=== PATIENT | female | born 1995 | race Caucasian/White ===

== ENCOUNTER 2019-07-17 11:35 | Emergency (ER) | payer SELFPAY ==
[2019-07-17 11:43] VITALS: BP 131/75; PULSE 97; RESP 18; TEMP 36.6; O2SAT 100; BMI 37.6
--- NOTE | 2019-07-17 11:56 | W.ED.NAVMDI ---
HPI - Nausea/Vomiting/Diarrhea General: Chief complaint: Headache Stated complaint: N/V X2DAYS H/A Time Seen by Provider: 07/17/19 11:47 Source: patient Mode of arrival: ambulatory Limitations: no limitations History of Present Illness: HPI Narrative: Patient is a 24-year-old female who presents to ED today with complaints of nausea, vomiting, diarrhea, and abdominal pain over the past 48 hours. Patient states she has had approximately 20 total non-bloody episodes of vomiting and reports just a few diarrhea stools. 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 Patient reports running fevers as high as 102. She reports abdominal pain seems to worsen before she has a bowel movement or before vomiting and seems to improve afterwards. Patient states the vomiting has now caused her to have a migraine headache. She has a chronic history of migraine headaches and feels this headache is identical to previous ones. MD elicited complaint: nausea, vomiting, diarrhea, abdominal pain and other (headache) Onset (ago): day(s) Description of vomiting: watery Associated nausea: Yes Associated abdominal pain: Yes Location of pain: Diffuse Pain consistency: intermittent Quality: cramping Exacerbating factors: eating Relieving factors: none Context: sick contacts Associated symtoms: Reports headache(s) and nausea; Denies change in vision, chest pain, dizziness, dysuria, fatigue, malaise, palpitations or syncope Review of Systems Const: Reports: fever and change in appetite; Denies: chills, body aches, change in weight, fatigue or malaise Eyes: Denies: change in vision or blurry vision ENMT: Denies: throat pain, enlarged tonsils, painful swallowing, nasal discharge, nasal congestion or facial/sinus pain Card: Denies: chest pain, palpitations, irregular heart rhythm, lightheadedness, syncope or shortness of breath on exertion Resp: Denies: shortness of breath, productive cough or pain on inspiration GI: Reports: abdominal pain, nausea, vomiting, diarrhea and cramping; Denies: vomiting blood, coffee grounds in vomit, heartburn/indigestion, painful bowel movements, change in stool character, blood in stool, black tarry stool, white/light colored stool or fatty stool : Denies: flank pain, difficulty urinating, painful urination, urinary frequency, urinary urgency or urinary hesitancy Musc: Denies: neck pain, back pain or joint pain Skin/Breast: Denies: rash Neuro: Reports: headache; Denies: numbness in extremities, weakness in extremities, changes in sensation, lack of coordination, difficulty walking, frequent falls, dizziness, vertigo, confusion, slurred speech or seizure-like activity PFS ED PFSH: Social History Smoking and tobacco status: current every day smoker Female Reproductive History: Date of last menstrual period: 07/09/19 Physical Exam Const: COMMON NORMALS: no apparent distress, oriented x3, no limitations, alert and well nourished NUTRITIONAL APPEARANCE: obese HENMT: COMMON NORMALS: normocephalic, head/scalp atraumatic, hearing grossly normal bilaterally, external ears normal, EAC's normal, TM's normal bilaterally, external nose normal, nasal mucous membranes and turbinates normal, moist oral mucous membranes and oropharynx normal HEAD & SCALP: normocephalic and atraumatic NOSE: external nose normal and nasal mucous membranes and turbinates normal EXTERNAL EAR: Yes external ears normal EXTERNAL AUDITORY CANAL: EAC's normal TYMPANIC MEMBRANE: TM's normal bilaterally Eye: COMMON NORMALS: PERRL and EOMs intact bilaterally PUPIL: Yes PERRL Neck/C-Spine: COMMON NORMALS: full ROM, no lymphadenopathy, supple and no meningeal signs Chest: COMMONS NORMALS: inspection of chest normal Resp: COMMON NORMALS: normal respiratory effort and clear to auscultation bilaterally AUSCULTATION: clear to auscultation bilaterally Cardio: COMMON NORMALS: regular rate and regular rhythm RATE: regular rate RHYTHM: regular rhythm GI: COMMON NORMALS: normal to inspection, nondistended, normoactive bowel sounds, soft to palpation, no hepatosplenomegaly and no masses PALPATION: Yes soft, Yes tender (very minor; diffuse) and Yes no hepatosplenomegaly : COMMON NORMALS: Yes no CVA tenderness BLADDER/KIDNEY EXAM: Yes no CVA tenderness Back/Pelvis: COMMON NORMALS: no CVA tenderness and thoracic and lumbar spine normal to inspection Extremity: COMMON NORMALS: normal to inspection Neuro: COMMON NORMALS: oriented x3 SENSORIUM/ORIENTATION: Yes alert MENINGEAL SIGNS: Yes no meningeal signs Skin: COMMON NORMALS: no rashes or lesions noted GENERAL SKIN EXAM: no rashes or lesions noted Course Vital Signs: Vital signs: Vital Signs Temperature 98 F 07/17/19 11:43 Pulse Rate 78 07/17/19 14:46 Respiratory Rate 16 07/17/19 14:46 Blood Pressure 131/93 07/17/19 14:46 Pulse Oximetry 97 07/17/19 14:46 MDM - Nausea/Vomiting/Diarrhea MDM Narrative: Medical decision making narrative: Labs are non-concerning at this time. Vitals are stable. She has not had any episodes of vomiting throughout her stay. Reports migraine headache is vastly improved. She feels comfortable going home at this time. Lab Data: Labs: Lab Results 07/17/19 07/17/19 07/17/19 Range/Units 11:50 11:54 11:54 WBC 7.1 (4.0-10.0) 10^3/ uL RBC 4.68 (4.1-5.3) 10^6/u L Hgb 13.4 (11.5-15.3) g/dL Hct 40.8 (37.0-47.0) % MCV 87.2 (81-99) fL MCH 28.6 (28.0-34.0) pg MCHC 32.8 (30.0-36.0) g/dL RDW 12.0 L (12.1-15.1) % Plt Count 306 (130-400) 10^3/c mm MPV 9.0 (7.4-10.4) fL Neut % (Auto) 75.6 % Lymph % (Auto) 14.1 % [place] % (Auto) 9.8 % Eos % (Auto) 0.1 % Baso % (Auto) 0.1 % Neut # (Auto) 5.4 (1.8-7.7) 10^3/u L Lymph # (Auto) 1.0 (0.8-4.8) 10^3/u L [place] # (Auto) 0.7 (0.2-0.9) 10^3/u L Eos # (Auto) 0.0 (0.0-0.8) 10^3/u L Baso # (Auto) 0.0 (0.0-0.1) 10^3/u L Nucleated RBC % (a uto) 0 % Nucleated RBCs # 0.0 /100WBC Sodium 136 (136-145) mmol/L Potassium 3.8 (3.5-5.1) mmol/L Chloride 100 (98-107) mmol/L Carbon Dioxide 25 (22-29) mmol/L Anion Gap 14.8 (5-19) BUN 10 (6-20) mg/dL Creatinine 0.8 (0.5-0.9) mg/dL GFR Calculation 86.7 L (90-130) mL/min Glucose 134 H (65-115) mg/dL Calcium 8.6 (8.5-10.5) mg/dL Total Bilirubin 0.3 (0.15-1.2) mg/dL AST 20 (0-32) U/L ALT 21 (0-33) U/L Alkaline Phosphata se 70 (35-105) IU/L Total Protein 7.5 (6.6-8.7) g/dL Albumin 4.4 (3.5-5.2) g/dL Globulin 3.1 (1.3-4.6) g/dL Lipase 6 L (13-60) U/L HCG, Qual (Negative) Urine Color (Yellow) Urine Appearance (CLEAR) Urine pH (5-7) Ur Specific Gravit y (1.005-1.030) Urine Protein (Negative) Urine Glucose (UA) (Normal) Urine Ketones (Negative) Urine Occult Blood (Negative) Urine Nitrate (Negative) Urine Bilirubin (NEGATIVE) Urine Urobilinogen (Negative) mg/dL Ur Leukocyte Debbie ase (Negative) Urine RBC (0-2) /hpf Urine WBC (0-5) /hpf Ur Squamous Epith Cells (0-5) Urine Bacteria (NONE) Urine Mucus Influenza Type A A g Negative (Negative) POC Influenza B Ag Negative (Negative) 07/17/19 07/17/19 Range/Units 11:54 13:08 WBC (4.0-10.0) 10^3/ uL RBC (4.1-5.3) 10^6/u L Hgb (11.5-15.3) g/dL Hct (37.0-47.0) % MCV (81-99) fL MCH (28.0-34.0) pg MCHC (30.0-36.0) g/dL RDW (12.1-15.1) % Plt Count (130-400) 10^3/c mm MPV (7.4-10.4) fL Neut % (Auto) % Lymph % (Auto) % [place] % (Auto) % Eos % (Auto) % Baso % (Auto) % Neut # (Auto) (1.8-7.7) 10^3/u L Lymph # (Auto) (0.8-4.8) 10^3/u L [place] # (Auto) (0.2-0.9) 10^3/u L Eos # (Auto) (0.0-0.8) 10^3/u L Baso # (Auto) (0.0-0.1) 10^3/u L Nucleated RBC % (a uto) % Nucleated RBCs # /100WBC Sodium (136-145) mmol/L Potassium (3.5-5.1) mmol/L Chloride (98-107) mmol/L Carbon Dioxide (22-29) mmol/L Anion Gap (5-19) BUN (6-20) mg/dL Creatinine (0.5-0.9) mg/dL GFR Calculation (90-130) mL/min Glucose (65-115) mg/dL Calcium (8.5-10.5) mg/dL Total Bilirubin (0.15-1.2) mg/dL AST (0-32) U/L ALT (0-33) U/L Alkaline Phosphata se (35-105) IU/L Total Protein (6.6-8.7) g/dL Albumin (3.5-5.2) g/dL Globulin (1.3-4.6) g/dL Lipase (13-60) U/L HCG, Qual Negative (Negative) Urine Color Yellow (Yellow) Urine Appearance Clear (CLEAR) Urine pH 6.5 (5-7) Ur Specific Gravit y 1.020 (1.005-1.030) Urine Protein Trace (Negative) Urine Glucose (UA) Norm (Normal) Urine Ketones 1+ H (Negative) Urine Occult Blood Trace H (Negative) Urine Nitrate Negative (Negative) Urine Bilirubin 1+ H (NEGATIVE) Urine Urobilinogen 4 H (Negative) mg/dL Ur Leukocyte Debbie ase Negative (Negative) Urine RBC 0-4 H (0-2) /hpf Urine WBC None (0-5) /hpf Ur Squamous Epith Cells 15-25 H (0-5) Urine Bacteria Trace (NONE) Urine Mucus 3+ Influenza Type A A g (Negative) POC Influenza B Ag (Negative) Discharge Plan Discharge Patient Disposition: Home, Self-Care Clinical Impression: Gastroenteritis Migraine Qualifiers: Migraine type: without aura Status migrainosus presence: without status migrainosus Intractability: not intractable Qualified Code(s): G43.009 - Migraine without aura, not intractable, without status migrainosus Condition: Stable Prescriptions: New Zofran 4 mg tablet 4 mg PO Q6H PRN (Reason: nausea and vomiting) Qty: 14 RF: 0 Discharge Orders: Discharge Order (Routine); Ordered 07/17/19 Ordered By: Paulette Moreno Referrals: ABRAM MCCARTHY, [Primary Care Provider] - Discharge Diet: Advance as tolerated Discharge Activity: Increase activity as tolerated Discharge Date/Time: 07/17/19 14:46 Coding Level of Care 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
[2019-07-17 12:00] LABS: Basophils % 0.1 %; Eosinophils % 0.1 %; Hematocrit 40.8 % (37.0-47.0); Hemoglobin 13.4 g/dL (11.5-15.3); Lymphocytes % 14.1 %; Mean Corpuscular HGB Conc 32.8 g/dL (30.0-36.0); Mean Corpuscular Hemoglobin 28.6 pg (28.0-34.0); Mean Corpuscular Volume 87.2 fL (81-99); Monocytes # 0.7 10^3/uL (0.2-0.9); Monocytes % 9.8 %; Neutrophils # 5.4 10^3/uL (1.8-7.7); Neutrophils % 75.6 %; Nucleated Red Blood Cells % 0 %; Platelet Count 306 10^3/cmm (130-400); Red Blood Count 4.68 10^6/uL (4.1-5.3); White Blood Count 7.1 10^3/uL (4.0-10.0)
[2019-07-17 12:17] LABS: Influenza A by IFA Negative (Negative); Influenza B by IFA Negative (Negative)
[2019-07-17 12:22] LABS: HCG, Serum Qual Negative (Negative)
[2019-07-17] MEDS: sodium chloride 0.9% 1,000 ML 999 ML IV (12:22)
[2019-07-17] MEDS: ondansetron 2 mg/ML SDV 2 mL 4 MG IVP (12:24)
[2019-07-17] MEDS: diphenhydrAMINE 50 mg/mL SDV 1mL IVP (12:25)
[2019-07-17] MEDS: ketorolac 60 mg/2 mL INJ 30 MG IVP (12:27)
[2019-07-17 12:28] LABS: Alanine Aminotransferase 21 U/L (0-33); Albumin Level 4.4 g/dL (3.5-5.2); Alkaline Phosphatase 70 IU/L (35-105); Anion Gap 14.8 (5-19); Aspartate Amino Transferase 20 U/L (0-32); Blood Urea Nitrogen 10 mg/dL (6-20); Calcium 8.6 mg/dL (8.5-10.5); Carbon Dioxide 25 mmol/L (22-29); Chloride 100 mmol/L (98-107); Globulin 3.1 g/dL (1.3-4.6); Glomerular Filtration Rate 86.7 mL/min (90-130); Glucose 134 mg/dL (65-115); Lipase 6 U/L (13-60); Potassium 3.8 mmol/L (3.5-5.1); Sodium 136 mmol/L (136-145); Total Bilirubin 0.3 mg/dL (0.15-1.2); Total Protein 7.5 g/dL (6.6-8.7)
[2019-07-17] MEDS: dexamethasone 10 mg/mL INJ 6 MG IV (12:30)
[2019-07-17] MEDS: metoclopramide 5 mg/mL SDV 2 mL 10 MG IVP (12:46)
[2019-07-17] MEDS: valproic acid inj 500 MG in sodium chloride 0.9% 50 ML 55 MG IV (13:42)
[2019-07-17 13:46] LABS: Bilirubin Urine 1+ (NEGATIVE); Blood Urine Trace (Negative); Glucose Urine UA Norm (Normal); Ketones Urine 1+ (Negative); Leukocyte Esterase Urine Negative (Negative); Nitrate Urine Negative (Negative); Protein Urine Trace (Negative); Urine Appearance Clear (CLEAR); Urine Color Yellow (Yellow); Urobilinogen Urine 4 mg/dL (Negative); pH Urine 6.5 (5-7)
[2019-07-17 13:47] LABS: Add Urine Microscopic? YES
[2019-07-17 14:03] LABS: Add Urine Culture? No; Bacteria Urine TRACE; Mucus Urine 3+; RBC Urine 0-4 /hpf (0-2); Squamous Epithelial Cell Urine 15-25 (0-5)
[2019-07-17 14:46] VITALS: BP 131/93; PULSE 78; RESP 16; O2SAT 97
== END 2019-07-17 14:46 | disposition home or self-care (01) ==
PROVIDERS: Emergency Provider Physician Assistant; Family Provider Internal Medicine; PCP Internal Medicine
DX: K52.9 Noninfective gastroenteritis and colitis, unspecified (principal); G43.909 Migraine, unspecified, not intractable, without status migrainosus; F17.200 Nicotine dependence, unspecified, uncomplicated
CPT/HCPCS: 80053; 81001; 83690; 84703; 85025; 87804; 96365; 96375; 99283; J1100; J1200; J1885; J2405; J2765; J7030

== ENCOUNTER 2019-09-28 08:34 | Emergency (ER) | payer SELFPAY ==
[2019-09-28 08:39] VITALS: BP 147/85; PULSE 95; RESP 16; TEMP 36.4; O2SAT 99; BMI 38.8
--- NOTE | 2019-09-28 08:48 | W.ED.HA ---
HPI - Headache General: Chief Complaint: Headache Stated Complaint: H/A Time Seen by Provider: 09/28/19 08:39 Source: patient Mode of arrival: ambulatory Limitations: no limitations History of Present Illness: HPI Narrative: Patient is a 24-year-old female who presents to ED today with complaints of a migraine headache over the past 3 days. Patient has an extensive history of migraines and states her pain today feels identical to previous migraine headaches. She is managed by a neurologist in [place]. She is having some blurry vision as well as nausea vomiting which is normal along with her migraine headaches. MD elicited complaint: headache and migraine Onset (ago): day(s) Onset description: gradually Severity: severe Pain scale (0-10): 10 Exacerbating factors: light and noise Relieving factors: nothing Context: occurred at rest Associated symptoms: Reports nausea, photophobia, sound sensitivity and vomiting; Deny chest pain, confusion, fever(s) or rash Review of Systems Const: Denies: fever, chills or body aches Eyes: Reports: blurry vision and photophobia; Denies: blind spots, floaters or seeing flashes ENMT: Denies: throat pain, enlarged tonsils or painful swallowing Card: Denies: chest pain Resp: Denies: shortness of breath GI: Reports: nausea and vomiting; Denies: abdominal pain or diarrhea Musc: Denies: neck pain or back pain Skin/Breast: Denies: rash Neuro: Reports: headache; Denies: numbness in extremities, weakness in extremities, changes in sensation, lack of coordination, difficulty walking, frequent falls, dizziness, confusion or slurred speech PFS ED PFSH: Social History Smoking and tobacco status: current every day smoker Female Reproductive History: Date of last menstrual period: 07/09/19 Physical Exam Const: COMMON NORMALS: oriented x3, no limitations and alert GENERAL APPEARANCE: in distress (ARNETT pain) NUTRITIONAL APPEARANCE: overweight ORIENTATION/CONSCIOUSNESS: Yes oriented to person, Yes oriented to place and Yes oriented to time HENMT: COMMON NORMALS: normocephalic, head/scalp atraumatic, hearing grossly normal bilaterally, external ears normal, EAC's normal, TM's normal bilaterally, external nose normal, nasal mucous membranes and turbinates normal, moist oral mucous membranes and oropharynx normal HEAD & SCALP: normal to inspection, normocephalic and atraumatic FACE & SINUS: normal facial exam and sinuses nontender NOSE: external nose normal and nasal mucous membranes and turbinates normal EXTERNAL EAR: Yes external ears normal EXTERNAL AUDITORY CANAL: EAC's normal TYMPANIC MEMBRANE: TM's normal bilaterally Eye: COMMON NORMALS: PERRL, EOMs intact bilaterally and conjunctivae normal CONJUNCTIVA: Yes conjunctivae normal PUPIL: Yes PERRL DIRECT OPHTHALMOSCOPY: Yes photophobia Neck/C-Spine: COMMON NORMALS: full ROM, no lymphadenopathy and no meningeal signs Neuro: KARLA COMA SCALE: document GCS findings Karla coma scale eye opening: Spontaneous [place] coma scale verbal response: Orientated Karla coma scale motor response: Obey commands Karla coma scale total score: 15 COMMON NORMALS: oriented x3, CN's II-XII intact bilaterally, moves all extremities, no focal motor deficits, no sensory deficits noted and gait normal SENSORIUM/ORIENTATION: Yes alert, Yes oriented to person, Yes oriented to place and Yes oriented to time MENINGEAL SIGNS: Yes no meningeal signs Skin: COMMON NORMALS: no rashes or lesions noted GENERAL SKIN EXAM: no rashes or lesions noted Course Reevaluation(s): Reevaluation #1: ARNETT trending downward; she states her ex- just let her know he would be dropping their child off at the house and she needs to leave to be there so requesting DC paperwork Vital Signs: Vital signs: Vital Signs Temperature 97.5 F L 09/28/19 08:39 Pulse Rate 95 09/28/19 08:39 Respiratory Rate 16 09/28/19 08:39 Blood Pressure 147/85 09/28/19 08:39 Pulse Oximetry 99 09/28/19 08:39 Discharge Plan Discharge Patient Disposition: Home, Self-Care Clinical Impression: Migraine Qualifiers: Migraine type: without aura Status migrainosus presence: with status migrainosus Intractability: not intractable Qualified Code(s): G43.001 - Migraine without aura, not intractable, with status migrainosus Condition: Stable Prescriptions: No Action venlafaxine 150 mg capsule,extended release 24hr 150 mg PO DAILY RF: 0 hydroxyzine HCl 50 mg tablet 100 mg PO BEDTIME RF: 0 Tylenol Extra Strength 500 mg Tablet 1,000 mg PO PRN RF: 0 trazodone 100 mg tablet 100 mg PO BEDTIME PRN (Reason: Sleep) RF: 0 baclofen 10 mg tablet 10 mg PO TID PRN (Reason: Muscle Spasm) RF: 0 ibuprofen 200 mg Tablet 800 mg PO PRN RF: 0 metoclopramide HCl 10 mg tablet 10 mg PO DAILY PRN (Reason: headache nausea) RF: 0 magnesium oxide 400 mg magnesium Capsule 400 mg PO DAILY RF: 0 Discharge Orders: Discharge Order (Routine); Ordered 09/28/19 Ordered By: Paulette Moreno Referrals: ABRAM MCCARTHY DO [Primary Care Provider] - Discharge Diet: Usual diet Discharge Activity: Increase activity as tolerated Patient Instructions: Headache - Migraine (Adult), Migraine Headache (ED) Coding Level of Care Code 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
[2019-09-28] MEDS: dexamethasone 10 mg/mL INJ 6 MG IVP (08:57)
[2019-09-28] MEDS: diphenhydrAMINE 50 mg/mL SDV 1mL IVP (08:58)
[2019-09-28] MEDS: ketorolac 60 mg/2 mL INJ 30 MG IVP (08:58)
[2019-09-28] MEDS: ondansetron 2 mg/ML SDV 2 mL 4 MG IVP (08:58)
[2019-09-28] MEDS: sodium chloride 0.9% 1,000 ML 999 ML IV (08:59)
[2019-09-28] MEDS: metoclopramide 5 mg/mL SDV 2 mL 10 MG IVP (10:26)
[2019-09-28] MEDS: valproic acid inj 500 MG in sodium chloride 0.9% 50 ML 55 MG IV (10:26)
[2019-09-28 10:28] VITALS: BP 142/60; PULSE 94; RESP 18; O2SAT 97
== END 2019-09-28 10:33 | disposition home or self-care (01) ==
PROVIDERS: Emergency Provider Physician Assistant; Family Provider Internal Medicine; PCP Internal Medicine
DX: G43.001 Migraine without aura, not intractable, with status migrainosus (principal); F17.210 Nicotine dependence, cigarettes, uncomplicated
CPT/HCPCS: 12345; 96360; 96365; 96375; 99282; 99283; J1100; J1200; J1885; J2405; J2765; J7030

== ENCOUNTER 2019-10-14 17:45 | Inpatient (IN) | payer SELFPAY ==
[2019-10-14] VITALS (7 sets, daily range): BP systolic 114–138; BP diastolic 82–89; PULSE 105–118; RESP 16–20; TEMP 36.4–36.7; O2SAT 96–100; BMI 37.6
--- NOTE | 2019-10-14 18:24 | US_ITS ---
WS: [id number] TRANSABDOMINAL PELVIC ULTRASOUND HISTORY: Pain COMPARISON: None available. Uterus: 6.5 cm x 4.0 cm x 4.6 cm. Very limited evaluation of the uterus. Endometrium: Not visualized. Neither ovary is definitely visualized. No adnexal mass is appreciated. No free fluid in the cul-de-sac. US/US pelvic complete* [id number] IMPRESSION: Extremely limited evaluation of the uterus and adnexal structures. No abnormali ty identified but neither ovary is well seen.
--- NOTE | 2019-10-14 18:26 | W.ED.FEMALGU ---
HPI - Female Genitourinary General: Chief complaint: Urogenital-Female Stated complaint: SEVERE PAIN IN ABDOMEN LOWER LEFT QUADRANT Time Seen by Provider: 10/14/19 18:18 History of Present Illness: HPI Narrative: Rebecca is a nice 24-year-old female who comes in complaining of left-sided pelvic/abdominal pain. She denies any vaginal discharge or bleeding. Patient states that she thinks that she has ruptured her bladder. She normally self caths every evening and as needed when she feels as though she needs to remove urine. She does this to prevent recurrent urinary tract infections as she has interstitial cystitis. Patient also states she has polycystic ovarian syndrome. She denies any fevers, chills, nausea/vomiting, diarrhea or constipation. Patient states she is not had pain like this before. Patient states she is also not had a period in approximately 9 months and she is not using control. She does not believe that she is . She is unaware of anything that makes her symptoms better or worse and she is not tried anything at home for this. Associated symptoms: Reports abdominal pain; Deny headache(s), nausea or syncope Date of Last Menstrual Period: 07/09/19 Review of Systems General: Reports: other (negative unless marked) Const: Denies: fever, chills, body aches, fatigue, malaise or diaphoresis Eyes: Denies: change in vision or blurry vision ENMT: Denies: throat pain, painful swallowing, hoarseness, ear pain, ear discharge, Change in hearing or nasal discharge Card: Denies: chest pain, palpitations, irregular heart rhythm, syncope, pre-syncope, shortness of breath on exertion or shortness of breath when lying down Resp: Denies: shortness of breath, productive cough, non-productive cough, wheezing, coughing up blood or chest congestion GI: Reports: abdominal pain; Denies: nausea, vomiting, vomiting blood, coffee grounds in vomit, diarrhea, constipation, cramping, blood in stool or black tarry stool : Reports: pelvic pain; Denies: flank pain, painful urination, urinary frequency, urinary urgency, decreased urine ouput, urinary incontinence or blood in urine Musc: Denies: neck pain, back pain, extremity pain, extremity swelling, joint pain, joint swelling, joint warmth or joint stiffness Skin/Breast: Denies: rash, skin tenderness or yellow skin Neuro: Denies: headache, numbness in extremities, weakness in extremities, changes in sensation, lack of coordination, difficulty walking, dizziness, vertigo or confusion Endo: Denies: excessive thirst, tired all the time, cold intolerance, excessive sweating, flushing or hot flashes Jimmy/Lymph: Denies: easy bruising, easy bleeding, petechiae or enlarged lymph nodes All/Imm: Denies: hives, throat swelling, tongue swelling, facial swelling or acute wheezing PFSH ED PFSH: Medical History Interstitial cystitis Migraine headache PCOS (polycystic ovarian syndrome) Social History Smoking and tobacco status: current every day smoker Female Reproductive History: Date of last menstrual period: 07/09/19 Physical Exam Const: COMMON NORMALS: no apparent distress, oriented x3, no limitations, healthy appearing and well nourished EXAM LIMITATIONS: no altered mental status GENERAL APPEARANCE: cooperative, well kempt and well developed ORIENTATION/CONSCIOUSNESS: Yes awake HENMT: COMMON NORMALS: normocephalic, head/scalp atraumatic, hearing grossly normal bilaterally, external ears normal, EAC's normal, external nose normal and moist oral mucous membranes HEAD & SCALP: normal to inspection, normocephalic and atraumatic FACE & SINUS: normal facial exam and face symmetric NOSE: external nose normal and nares normal EXTERNAL EAR: Yes external ears normal EXTERNAL AUDITORY CANAL: EAC's normal MOUTH: oral and palatal mucosa normal and tongue normal Eye: COMMON NORMALS: PERRL, EOMs intact bilaterally, conjunctivae normal and no scleral icterus GENERAL EYE: normal appearance of both eyes and normal light reflex CONJUNCTIVA: Yes conjunctivae normal SCLERA: sclerae normal CORNEA: Yes corneas normal PUPIL: Yes PERRL DIRECT OPHTHALMOSCOPY: Yes normal light reflex Neck/C-Spine: COMMON NORMALS: full ROM, no lymphadenopathy, supple, no meningeal signs and no JVD GENERAL: Yes normal visual inspection and Yes trachea midline CERVICAL SPINE: Yes cervical ROM normal Chest: COMMONS NORMALS: inspection of chest normal and palpation of chest normal Resp: COMMON NORMALS: normal respiratory effort, no retractions, no use of accessory muscles and clear to auscultation bilaterally EFFORT & INSPECTION: Yes able to speak in complete sentences AUSCULTATION: clear to auscultation bilaterally Cardio: COMMON NORMALS: no JVD, regular rate, regular rhythm, S1 normal heart sound, S2 normal heart sound, no gallops, no clicks, no murmurs and no rub JUGULAR VENOUS DISTENTION: no JVD RATE: regular rate RHYTHM: regular rhythm HEART SOUNDS: S1 normal and S2 normal GI: COMMON NORMALS: soft to palpation, no hepatosplenomegaly and no masses PALPATION: Yes soft, Yes tender Details: LLQ (Mild to moderate but without rebound or guarding), No guarding, No rigid and Yes no hepatosplenomegaly : COMMON NORMALS: Yes no CVA tenderness BLADDER/KIDNEY EXAM: Yes no CVA tenderness Back/Pelvis: COMMON NORMALS: no CVA tenderness, thoracic and lumbar spine normal to inspection, no thoracic nor lumbar tenderness and thoraco-lumbar ROM normal Extremity: COMMON NORMALS: normal to inspection, full ROM, normal capillary refill, no joint enlargement, no clubbing, cyanosis or edema and no calf tenderness Neuro: COMMON NORMALS: oriented x3, CN's II-XII intact bilaterally, moves all extremities, no focal motor deficits and no sensory deficits noted MENINGEAL SIGNS: Yes no meningeal signs Psych: COMMON NORMALS: mental status grossly normal, thought process normal, cooperative, affect normal, speech normal and activity/motor behavior normal APPEARANCE: Yes well kempt SPEECH: Yes normal speech THOUGHT PROCESS: normal thought process Skin: COMMON NORMALS: no rashes or lesions noted, skin turgor normal, no jaundice, no petechiae and no mottling GENERAL SKIN EXAM: no rashes or lesions noted and turgor normal Course ED course: 0 -Rebecca is had a French catheter placed and just a little over 100 cc of urine has been obtained. The patient states this is not relieved her pain. Vital Signs: Vital signs: Vital Signs Temperature 98.0 F 10/14/19 18:11 Pulse Rate 118 H 10/14/19 20:37 Respiratory Rate 20 H 10/14/19 20:37 Blood Pressure 114/82 10/14/19 20:37 Pulse Oximetry 98 10/14/19 20:37 MDM - Female MDM Narrative: Medical decision making narrative: Admission -patient has evidence of pyelonephritis on CT. She stated that she has had a kidney stone for 5 years that is never passed but there is no evidence of this just a UTI and probable pyelonephritis. The patient states she has been vomiting and is been subjectively febrile. She also states her pain is not controlled. I think at this time we should put her in the hospital as she cannot keep down her medicines at home she will not be able to get over this. I have reviewed the case with Dr. Diamond and he agrees to admission. Although the patient does meet sepsis criteria clinically she does not appear septic. Lab Data: Attestation: I reviewed the patient's lab results. Labs: Lab Results 10/14/19 10/14/19 10/14/19 Range/Units 18:32 18:32 18:45 WBC 12.7 H (4.0-10.0) 10^3/ uL RBC 5.30 (4.1-5.3) 10^6/u L Hgb 15.4 H (11.5-15.3) g/dL Hct 46.6 (37.0-47.0) % MCV 87.9 (81-99) fL MCH 29.1 (28.0-34.0) pg MCHC 33.0 (30.0-36.0) g/dL RDW 13.0 (12.1-15.1) % Plt Count 427 H (130-400) 10^3/c mm MPV 9.7 (7.4-10.4) fL Neut % (Auto) 72.6 % Lymph % (Auto) 17.9 % [place] % (Auto) 8.2 % Eos % (Auto) 0.7 % Baso % (Auto) 0.3 % Neut # (Auto) 9.2 H (1.8-7.7) 10^3/u L Lymph # (Auto) 2.3 (0.8-4.8) 10^3/u L [place] # (Auto) 1.0 H (0.2-0.9) 10^3/u L Eos # (Auto) 0.1 (0.0-0.8) 10^3/u L Baso # (Auto) 0.0 (0.0-0.1) 10^3/u L Nucleated RBC % (a uto) 0 % Nucleated RBCs # 0.0 /100WBC Sodium 137 (136-145) mmol/L Potassium 4.3 (3.5-5.1) mmol/L Chloride 103 (98-107) mmol/L Carbon Dioxide 20 L (22-29) mmol/L Anion Gap 18.3 (5-19) BUN 9 (6-20) mg/dL Creatinine 0.8 (0.5-0.9) mg/dL GFR Calculation 86.7 L (90-130) mL/min Glucose 100 (65-115) mg/dL Calculated Osmolal ity 280 L (285-295) mOsm/k g Calcium 9.2 (8.5-10.5) mg/dL Total Bilirubin 0.4 (0.15-1.2) mg/dL AST 21 (0-32) U/L ALT 17 (0-33) U/L Alkaline Phosphata se 79 (35-105) IU/L Total Protein 7.6 (6.6-8.7) g/dL Albumin 4.5 (3.5-5.2) g/dL Globulin 3.1 (1.3-4.6) g/dL Lipase 13 (13-60) U/L HCG, Qual Negative (Negative) Urine Color (Yellow) Urine Appearance (CLEAR) Urine pH (5-7) Ur Specific Gravit y (1.005-1.030) Urine Protein (Negative) Urine Glucose (UA) (Normal) Urine Ketones (Negative) Urine Blood (Negative) Urine Nitrate (Negative) Urine Bilirubin (NEGATIVE) Urine Urobilinogen (Negative) mg/dL Ur Leukocyte Debbie ase (Negative) Urine RBC (0-2) /hpf Urine WBC (0-5) /hpf Ur Squamous Epith Cells (0-5) Urine Bacteria (NONE) 10/14/19 Range/Units 18:45 WBC (4.0-10.0) 10^3/ uL RBC (4.1-5.3) 10^6/u L Hgb (11.5-15.3) g/dL Hct (37.0-47.0) % MCV (81-99) fL MCH (28.0-34.0) pg MCHC (30.0-36.0) g/dL RDW (12.1-15.1) % Plt Count (130-400) 10^3/c mm MPV (7.4-10.4) fL Neut % (Auto) % Lymph % (Auto) % [place] % (Auto) % Eos % (Auto) % Baso % (Auto) % Neut # (Auto) (1.8-7.7) 10^3/u L Lymph # (Auto) (0.8-4.8) 10^3/u L [place] # (Auto) (0.2-0.9) 10^3/u L Eos # (Auto) (0.0-0.8) 10^3/u L Baso # (Auto) (0.0-0.1) 10^3/u L Nucleated RBC % (a uto) % Nucleated RBCs # /100WBC Sodium (136-145) mmol/L Potassium (3.5-5.1) mmol/L Chloride (98-107) mmol/L Carbon Dioxide (22-29) mmol/L Anion Gap (5-19) BUN (6-20) mg/dL Creatinine (0.5-0.9) mg/dL GFR Calculation (90-130) mL/min Glucose (65-115) mg/dL Calculated Osmolal ity (285-295) mOsm/k g Calcium (8.5-10.5) mg/dL Total Bilirubin (0.15-1.2) mg/dL AST (0-32) U/L ALT (0-33) U/L Alkaline Phosphata se (35-105) IU/L Total Protein (6.6-8.7) g/dL Albumin (3.5-5.2) g/dL Globulin (1.3-4.6) g/dL Lipase (13-60) U/L HCG, Qual (Negative) Urine Color Yellow (Yellow) Urine Appearance Hazy A (CLEAR) Urine pH 6 (5-7) Ur Specific Gravit y 1.015 (1.005-1.030) Urine Protein 2+ H (Negative) Urine Glucose (UA) Norm (Normal) Urine Ketones Negative (Negative) Urine Blood 3+ H (Negative) Urine Nitrate Positive H (Negative) Urine Bilirubin Neg (NEGATIVE) Urine Urobilinogen Norm (Negative) mg/dL Ur Leukocyte Debbie ase 2+ H (Negative) Urine RBC 50-80 H (0-2) /hpf Urine WBC 25-40 H (0-5) /hpf Ur Squamous Epith Cells 0-4 H (0-5) Urine Bacteria 4+ H (NONE) Imaging Data: Pelvic Ultrasound: Radiologist's impression: Pelvic ultrasound, tech interpretation -no acute abnormalities. No evidence of ovarian cyst. No ovarian torsion. Uterus and tubes normal. No free fluid. CT Abd/Pel: Radiologist's impression: [facility] [address] [place] [address] CT Scan Report Signed Patient: Rebecca Aguilar Unit #: [id number] : 1995 Age/Sex: 24 / F ADM Date: 10/14/19 Loc: ER Room/Bed: Attending Dr: Ordering Provider/Ordering MD: Lolis Whitley DO Date of Service: 10/14/19 Procedure(s): CT kidney stone [id number] Accession Number(s): [id number] Report Number: [id number] PROCEDURE INFORMATION: Exam: CT Abdomen And Pelvis Without Contrast Exam date and time: 10/14/2019 7:39 PM Age: 24 years old Clinical indication: Abdominal pain; Localized; Left lower quadrant (llq); Prior surgery; Surgery type: Ileocecal resection; Patient HX: Severe llq and pelvic pain. History of menkers diverticulum. ; Additional info: Flank/abdominal pain TECHNIQUE: Imaging protocol: Computed tomography of the abdomen and pelvis without contrast. Radiation optimization: All CT scans at this facility use at least one of these dose optimization techniques: automated exposure control; mA and/or kV adjustment per patient size (includes targeted exams where dose is matched to clinical indication); or iterative reconstruction. COMPARISON: CT Abdomen/Pelvis Renal [id number] 04/27/2016 9:11 PM RADIATION DOSE METRICS: Total DLP: 1319.12 mGy-cm FINDINGS: Limitations: The absence of intravenous contrast lessens the sensitivity of this study for solid organ abnormalities. Liver: There is no focal abnormality within the liver. Gallbladder and bile ducts: The gallbladder is normal. Pancreas: The pancreas is normal. Spleen: The spleen is normal. Adrenals: The adrenal glands are normal. Kidneys and ureters: The kidneys are normal. There is no evidence of renal or ureteral calcifications. There is mild fullness of the left ureter and left collecting system a mild periureteric stranding on the left. This is similar to the findings on the right side on 04/27/2016 and could represent urinary tract infection. Correlation with clinical findings is suggested. Stomach and bowel: There are postsurgical changes of ileocolic resection. The appendix is not identified. There is no evidence of colitis/diverticulitis. Appendix: See Stomach and bowel finding. Intraperitoneal space: Unremarkable. No free air. No significant fluid collection. Vasculature: Unremarkable. No abdominal aortic aneurysm. Lymph nodes: Unremarkable. No enlarged lymph nodes. Bladder: Urinary bladder is drained by French catheter. There does appear to be thickening of the urinary bladder suggesting urinary tract infection. Correlation with clinical findings and urinalysis is suggested. Reproductive: Unremarkable as visualized. Bones/joints: Unremarkable. No acute fracture. Soft tissues: Unremarkable. CT/CT kidney stone [id number] IMPRESSION: Findings are worrisome for urinary tract infection which may also include left ureteritis or pyelonephritis. Correlation with clinical findings is suggested. Radiation Dose CTDIVOL = (mGy): DLP = 1319.12 (mGy-cm) Dictated By: Tyrone An Signed By: Tyrone An Signed Date/Time: 10/14/192024 DD/ 23 Discharge Plan Discharge Patient Disposition: Placed in Observation Clinical Impression: Pyelonephritis Condition: Stable Prescriptions: No Action hydroxyzine HCl 50 mg tablet 100 mg PO BEDTIME Qty: 60 RF: 3 venlafaxine 150 mg capsule,extended release 24hr 150 mg PO DAILY RF: 0 Tylenol Extra Strength 500 mg Tablet 1,000 mg PO PRN RF: 0 trazodone 100 mg tablet 100 mg PO BEDTIME PRN (Reason: Sleep) RF: 0 baclofen 10 mg tablet 10 mg PO TID PRN (Reason: Muscle Spasm) RF: 0 ibuprofen 200 mg Tablet 800 mg PO PRN RF: 0 metoclopramide HCl 10 mg tablet 10 mg PO DAILY PRN (Reason: headache nausea) RF: 0 magnesium oxide 400 mg magnesium Capsule 400 mg PO DAILY RF: 0 Referrals: ABRAM MCCARTHY DO [Primary Care Provider] - Coding Level of Care Code ED T[employer] Inspector for [facility] Fwd Exam Comprehensive
[2019-10-14] MEDS: sodium chloride 0.9% 1,000 ML 100 ML IV (18:35)
[2019-10-14] MEDS: ondansetron 2 mg/ML SDV 2 mL 4 MG IVP (18:36)
[2019-10-14] MEDS: HYDROmorphone 1 mg/mL INJ 1 mL 0.5 MG IVP ×3 (18:37→22:07)
[2019-10-14 18:57] LABS: Basophils % 0.3 %; Eosinophils # 0.1 10^3/uL (0.0-0.8); Eosinophils % 0.7 %; Hematocrit 46.6 % (37.0-47.0); Hemoglobin 15.4 g/dL (11.5-15.3); Lymphocytes # 2.3 10^3/uL (0.8-4.8); Lymphocytes % 17.9 %; Mean Corpuscular Hemoglobin 29.1 pg (28.0-34.0); Mean Corpuscular Volume 87.9 fL (81-99); Mean Platelet Volume 9.7 fL (7.4-10.4); Monocytes % 8.2 %; Neutrophils # 9.2 10^3/uL (1.8-7.7); Neutrophils % 72.6 %; Nucleated Red Blood Cells % 0 %; Platelet Count 427 10^3/cmm (130-400); White Blood Count 12.7 10^3/uL (4.0-10.0)
[2019-10-14 19:07] LABS: HCG Qualitative Urine. Negative (Negative)
[2019-10-14 19:17] LABS: Bilirubin Urine Neg (NEGATIVE); Blood Urine 3+ (Negative); Glucose Urine UA Norm (Normal); Ketones Urine Negative (Negative); Nitrate Urine Positive (Negative); Protein Urine 2+ (Negative); Specific Gravity, Urine 1.015 (1.005-1.030); Urine Appearance Hazy (CLEAR); Urine Color Yellow (Yellow); Urobilinogen Urine Norm (Negative); pH Urine 6 (5-7)
[2019-10-14 19:18] LABS: Add Urine Culture? Yes; Add Urine Microscopic? YES; Bacteria Urine 4+; Leukocyte Esterase Urine 2+ (Negative); RBC Urine 50-80 /hpf (0-2); Squamous Epithelial Cell Urine 0-4 (0-5); WBC Urine 25-40 /hpf (0-5)
[2019-10-14 19:29] LABS: Alanine Aminotransferase 17 U/L (0-33); Albumin Level 4.5 g/dL (3.5-5.2); Alkaline Phosphatase 79 IU/L (35-105); Anion Gap 18.3 (5-19); Aspartate Amino Transferase 21 U/L (0-32); Blood Urea Nitrogen 9 mg/dL (6-20); Calcium 9.2 mg/dL (8.5-10.5); Carbon Dioxide 20 mmol/L (22-29); Chloride 103 mmol/L (98-107); Globulin 3.1 g/dL (1.3-4.6); Glomerular Filtration Rate 86.7 mL/min (90-130); Glucose 100 mg/dL (65-115); Lipase 13 U/L (13-60); Osmolality Calculated 280 mOsm/kg (285-295); Potassium 4.3 mmol/L (3.5-5.1); Sodium 137 mmol/L (136-145); Total Bilirubin 0.4 mg/dL (0.15-1.2); Total Protein 7.6 g/dL (6.6-8.7)
--- NOTE | 2019-10-14 19:36 | CTR_ITS ---
PROCEDURE INFORMATION: Exam: CT Abdomen And Pelvis Without Contrast Exam date and time: 10/14/2019 7:39 PM Age: 24 years old Clinical indication: Abdominal pain; Localized; Left lower quadrant (llq); Prior surgery; Surgery type: Ileocecal resection; Patient HX: Severe llq and pelvic pain. History of menkers diverticulum. ; Additional info: Flank/abdominal pain TECHNIQUE: Imaging protocol: Computed tomography of the abdomen and pelvis without contrast. Radiation optimization: All CT scans at this facility use at least one of these dose optimization techniques: automated exposure control; mA and/or kV adjustment per patient size (includes targeted exams where dose is matched to clinical indication); or iterative reconstruction. COMPARISON: CT Abdomen/Pelvis Renal [id number] 04/27/2016 9:11 PM RADIATION DOSE METRICS: Total DLP: 1319.12 mGy-cm FINDINGS: Limitations: The absence of intravenous contrast lessens the sensitivity of this study for solid organ abnormalities. Liver: There is no focal abnormality within the liver. Gallbladder and bile ducts: The gallbladder is normal. Pancreas: The pancreas is normal. Spleen: The spleen is normal. Adrenals: The adrenal glands are normal. Kidneys and ureters: The kidneys are normal. There is no evidence of renal or ureteral calcifications. There is mild fullness of the left ureter and left collecting system a mild periureteric stranding on the left. This is similar to the findings on the right side on 04/27/2016 and could represent urinary tract infection. Correlation with clinical findings is suggested. Stomach and bowel: There are postsurgical changes of ileocolic resection. The appendix is not identified. There is no evidence of colitis/diverticulitis. Appendix: See Stomach and bowel finding. Intraperitoneal space: Unremarkable. No free air. No significant fluid collection. Vasculature: Unremarkable. No abdominal aortic aneurysm. Lymph nodes: Unremarkable. No enlarged lymph nodes. Bladder: Urinary bladder is drained by French catheter. There does appear to be thickening of the urinary bladder suggesting urinary tract infection. Correlation with clinical findings and urinalysis is suggested. Reproductive: Unremarkable as visualized. Bones/joints: Unremarkable. No acute fracture. Soft tissues: Unremarkable. CT/CT kidney stone [id number] IMPRESSION: Findings are worrisome for urinary tract infection which may also include left ureteritis or pyelonephritis. Correlation with clinical findings is suggested. Radiation Dose CTDIVOL = (mGy): DLP = 1319.12 (mGy-cm)
[2019-10-14] MEDS: cefTRIAXone 1,000 MG in sodium chloride 0.9% (plus) 50 ML 100 MG IV (20:29)
[2019-10-14 21:23] LABS: Lactic Sepsis W/Reflex 0.8 mmol/L (0.5-2.2)
--- NOTE | 2019-10-14 21:23 | PM.HP ---
Providers/Chief Complaint Primary Care Provider: ABRAM MCCARTHY DO Chief Complaint: SEVERE PAIN IN ABDOMEN LOWER LEFT QUADRANT History of Present Illness Rebecca Aguilar is a 24 year old female with past medical history of interstitial nephritis, migraine headaches, polycystic ovarian syndrome, prior episodes of UTI who presents with complaints of left flank pain since last night. The pain started gradually but quickly became very severe. The patient also reports chronic dysuria which has worsened recently. The urine is cloudy. In the emergency room the patient is found to have UTI. CT of the abdomen revealed findings consistent with pyelonephritis. The patient also meets criteria for sepsis. She has tachycardia, leukocytosis. She also reports chills at home. She also reports associated nausea and vomiting. No blood in the urine. She denies chest pain, shortness of breath, cough, palpitations, runny nose or sore throat, diarrhea. On review of systems she reports frequent migraine headaches and complete right-sided numbness including her face and extremities. Review of Systems General: Reports: 10 or more systems reviewed and unremarkable except in HPI and below Medications/Allergies Home Medications Medication Instructions Recorded Confirmed Last Taken Type acetaminophen [Tylenol Extra 1,000 mg PO PRN 09/28/19 09/28/19 09/28/19 05:00 History Strength] baclofen 10 mg PO TID PRN 09/28/19 09/28/19 09/28/19 History ibuprofen 800 mg PO PRN 09/28/19 09/28/19 09/28/19 05:00 History magnesium oxide 400 mg PO DAILY 09/28/19 09/28/19 09/28/19 History metoclopramide HCl 10 mg PO DAILY PRN 09/28/19 09/28/19 09/27/19 History trazodone 100 mg PO BEDTIME PRN 09/28/19 09/28/19 09/27/19 History venlafaxine 150 mg PO DAILY 09/28/19 09/28/19 09/28/19 05:00 History hydroxyzine HCl 50 mg tablet 100 mg PO BEDTIME #60 tab 10/06/19 Unknown Rx Allergies Allergy/AdvReac Type Severity Reaction Status Date / Time amitriptyline Allergy ADR-Agitate Verified 07/17/19 11:43 d medroxyprogesterone Allergy Unknown Verified 09/28/19 09:17 [From Provera] meperidine [From Demerol] Allergy ALGY-Rash Verified 07/17/19 11:43 morphine Allergy ADR/ALGY-Fl Verified 07/17/19 11:43 ushing prochlorperazine Allergy ADR-Irritab Verified 07/17/19 11:43 [From Compazine] le promethazine [From Phenergan] Allergy Unknown Verified 07/17/19 11:43 PFSH Acute PFSH: Medical History Interstitial cystitis Migraine headache PCOS (polycystic ovarian syndrome) Social History Smoking and tobacco status: current every day smoker Female Reproductive History: Date of last menstrual period: 07/09/19 Vitals/I&O/Wt Last Vital Signs Temp 98.0 F 10/14/19 18:11 Pulse 118 H 10/14/19 20:37 Resp 20 H 10/14/19 20:37 BP 114/82 10/14/19 20:37 Pulse Ox 98 10/14/19 20:37 Weight last 48 hrs Weight 81.647 kg Physical Exam Narrative: EXAM NARRATIVE: The patient is awake alert and oriented. Mild distress. Mood and affect are appropriate. Responses are adequate. Skin is warm and dry. Dry mucous membranes. Eyes PERRLA, extraocular was intact. No icterus Neck supple, no JVD Lungs clear bilaterally. No respiratory distress. Heart S1, S2, regular Abdomen soft, no guarding no rebound. Left CVA tenderness is present. Bowel sounds are present French catheter is inserted. Cloudy urine. Extremities no edema cyanosis or calf tenderness bilaterally No focal weakness on neuro evaluation. No facial asymmetry. Normal speech. Urinary Catheter Management^: French: Cath Placed During This Visit: yes Reason for Continuing Indwelling Catheter: Acute Urinary Retention or Obstruction Urinary Catheter Date of Insertion: 10/14/19 Urinary Catheter Time of Insertion: 18:45 Data : 10/14/19 18:32 10/14/19 18:32 Other Labs: Laboratory Results WBC 12.7 10^3/uL (4.0-10.0) H 10/14/19 18:32 RBC 5.30 10^6/uL (4.1-5.3) 10/14/19 18:32 Hgb 15.4 g/dL (11.5-15.3) H 10/14/19 18: Hct 46.6 % (37.0-47.0) 10/14/19: MCV 87.9 fL (81-99) 10/14/19 18: MCH 29.1 pg (28.0-34.0) 10/14/19 18: MCHC 33.0 g/dL (30.0-36.0) 10/14/19: RDW 13.0 % (12.1-15.1) 10/14/19 18: Plt Count 427 10^3/cmm (130-400) H 10/14/19 18: MPV 9.7 fL (7.4-10.4) 10/14/19: Neut % (Auto) 72.6 % 10/14/19: Lymph % (Auto) 17.9 % 10/14/19 18: [place] % (Auto) 8.2 % 10/14/19: Eos % (Auto) 0.7 % 10/14/19: Baso % (Auto) 0.3 % 10/14/19: Neut # (Auto) 9.2 10^3/uL (1.8-7.7) H 10/14/19: Lymph # (Auto) 2.3 10^3/uL (0.8-4.8) 10/14/19: [place] # (Auto) 1.0 10^3/uL (0.2-0.9) H 10/14/19: Eos # (Auto) 0.1 10^3/uL (0.0-0.8) 10/14/19: Baso # (Auto) 0.0 10^3/uL (0.0-0.1) 10/14/19: Nucleated RBC % (auto) 0 % 10/14/19: Nucleated RBCs # 0.0 /100WBC 10/14/19 18: Sodium 137 mmol/L (136-145) 10/14/19: Potassium 4.3 mmol/L (3.5-5.1) 10/14/19: Chloride 103 mmol/L (98-107) 10/14/19 18:32 Carbon Dioxide 20 mmol/L (22-29) L 10/14/19 18:32 Anion Gap 18.3 (5-19) 10/14/19 18:32 BUN 9 mg/dL (6-20) 10/14/19 18:32 Creatinine 0.8 mg/dL (0.5-0.9) 10/14/19 18:32 GFR Calculation 86.7 mL/min (90-130) L 10/14/19 18:32 Glucose 100 mg/dL (65-115) 10/14/19 18:32 Calculated Osmolality 280 mOsm/kg (285-295) L 10/14/19 18:32 Lactic Acid 0.8 mmol/L (0.5-2.2) 10/14/19 20:51 Calcium 9.2 mg/dL (8.5-10.5) 10/14/19 18:32 Total Bilirubin 0.4 mg/dL (0.15-1.2) 10/14/19 18:32 AST 21 U/L (0-32) 10/14/19 18:32 ALT 17 U/L (0-33) 10/14/19 18:32 Alkaline Phosphatase 79 IU/L (35-105) 10/14/19 18:32 Total Protein 7.6 g/dL (6.6-8.7) 10/14/19 18:32 Albumin 4.5 g/dL (3.5-5.2) 10/14/19 18:32 Globulin 3.1 g/dL (1.3-4.6) 10/14/19 18:32 Lipase 13 U/L (13-60) 10/14/19 18:32 HCG, Qual Negative (Negative) 10/14/19 18:45 Urine Color Yellow (Yellow) 10/14/19 18:45 Urine Appearance Hazy (CLEAR) A 10/14/19 18:45 Urine pH 6 (5-7) 10/14/19 18:45 Ur Specific [place] 1.015 (1.005-1.030) 10/14/19 18:45 Urine Protein 2+ (Negative) H 10/14/19 18:45 Urine Glucose (UA) Norm (Normal) 10/14/19 18:45 Urine Ketones Negative (Negative) 10/14/19 18:45 Urine Blood 3+ (Negative) H 10/14/19 18:45 Urine Nitrate Positive (Negative) H 10/14/19 18:45 Urine Bilirubin Neg (NEGATIVE) 10/14/19 18:45 Urine Urobilinogen Norm mg/dL (Negative) 10/14/19 18:45 Ur Leukocyte Esterase 2+ (Negative) H 10/14/19 18:45 Urine RBC 50-80 /hpf (0-2) H 10/14/19 18:45 Urine WBC 25-40 /hpf (0-5) H 10/14/19 18:45 Ur Squamous Epith Cells 0-4 (0-5) H 10/14/19 18:45 Urine Bacteria 4+ (NONE) H 10/14/19 18:45 Impressions Abdomen/Pelvis CT 10/14/19 19:36 IMPRESSION: Findings are worrisome for urinary tract infection which may also include left ureteritis or pyelonephritis. Correlation with clinical findings is suggested. Radiation Dose CTDIVOL = (mGy): DLP = 1319.12 (mGy-cm) Micro: Microbiology 10/14/19 20:51 Blood Culture - Preliminary Blood SPECIMEN COLLECTED A&P Additional A&P Information 24-year-old female with history of interstitial nephritis and migraine headache presenting with left flank pain, nausea, vomiting, reported chills. She is found to have urinary tract infection. Meets criteria for sepsis. Hemodynamically stable. Blood and urine cultures are obtained. French catheter is inserted. Sepsis/pyelonephritis/urinary tract infection. Continue Rocephin and IV fluids. PRN medications for fever, pain, nausea. Waiting for blood and urine cultures. History of migraine headaches. Continue home medications. DVT prophylaxis. Lovenox. She wants to be full code. The plan of care was discussed with the patient. She verbalized understanding and agreement. Attestations Medical Necessity Statement*: Observation Coding Level of Care Code Acute Art Conservator for Killian Cantu
[2019-10-14] MEDS: phenazopyridine 100 mg Tablet 200 MG PO (21:46)
[2019-10-14] MEDS: enoxaparin 40 mg/0.4 mL Syringe SUBCUT (21:48)
[2019-10-14] MEDS: sodium chloride 0.9% 1,000 ML 200 ML IV (23:36)
[2019-10-14] MEDS: baclofen 10 mg Tablet PO (23:37)
[2019-10-14] MEDS: hyDROXYzine 25 mg Capsule 100 MG PO (23:37)
[2019-10-14] MEDS: trazodone 100 mg Tablet PO (23:37)
[2019-10-15] VITALS (46 sets, daily range): BP systolic 71–123; BP diastolic 43–83; PULSE 71–105; RESP 0–33; TEMP 36.5–36.9; O2SAT 87–100
[2019-10-15] MEDS: ketorolac 30 mg/mL INJ IVP ×2 (00:04→06:26)
[2019-10-15] MEDS: ondansetron 2 mg/ML SDV 2 mL 4 MG IVP ×3 (00:04→21:48)
[2019-10-15] MEDS: diphenhydrAMINE 25 mg Capsule (03:00)
[2019-10-15] MEDS: acetaminophen 325 mg Tablet 650 MG PO (04:40)
[2019-10-15] MEDS: sodium chloride 0.9% 1,000 ML 200 ML IV ×4 (04:40→21:32)
[2019-10-15 05:19] LABS: Basophils % 0.2 %; Eosinophils # 0.1 10^3/uL (0.0-0.8); Hematocrit 38.7 % (37.0-47.0); Hemoglobin 12.8 g/dL (11.5-15.3); Lymphocytes # 3.5 10^3/uL (0.8-4.8); Lymphocytes % 26.6 %; Mean Corpuscular HGB Conc 33.1 g/dL (30.0-36.0); Mean Corpuscular Volume 90.8 fL (81-99); Mean Platelet Volume 9.6 fL (7.4-10.4); Monocytes # 1.3 10^3/uL (0.2-0.9); Monocytes % 9.9 %; Neutrophils # 8.1 10^3/uL (1.8-7.7); Neutrophils % 62.1 %; Nucleated Red Blood Cells % 0 %; Platelet Count 323 10^3/cmm (130-400); Red Blood Count 4.26 10^6/uL (4.1-5.3); Red Cell Distribution Width 13.1 % (12.1-15.1)
[2019-10-15 05:58] LABS: Anion Gap 14.1 (5-19); Blood Urea Nitrogen 8 mg/dL (6-20); Calcium 7.9 mg/dL (8.5-10.5); Carbon Dioxide 23 mmol/L (22-29); Chloride 105 mmol/L (98-107); Glomerular Filtration Rate 101.1 mL/min (90-130); Glucose 154 mg/dL (65-115); Osmolality Calculated 287 mOsm/kg (285-295); Potassium 3.1 mmol/L (3.5-5.1); Sodium 139 mmol/L (136-145)
[2019-10-15 06:15] LABS: Magnesium 2.1 mg/dL (1.7-2.3)
--- NOTE | 2019-10-15 07:49 | PC.NURSE ---
Prn note Patient noted to have a b/p of 75/45 manual, pulse 90, t 98.1. Patient is a/o x 4, lungs clear, she c/o feeling weak and generally bad. Physician Dr. Gamez notified with orders to give 500 ml bolus over 30 x 1 now and recheck b/p at end of bolus.
[2019-10-15] MEDS: sodium chloride 0.9% 500 ML 999 ML IV (07:56)
[2019-10-15] MEDS: metoclopramide 10 mg Tablet PO (08:00)
--- NOTE | 2019-10-15 08:39 | PC.NURSE ---
Prn note Patient continues to have b/p of 70/40, physician in room, orders to transfer to ICU per Dr. garcia, icu be obtained and report called to Cortney SANCHEZ.
[2019-10-15] MEDS: magnesium oxide 400 mg tablet PO (09:59)
[2019-10-15] MEDS: venlafaxine ER (24HR) 150 mg Capsule PO (10:01)
[2019-10-15] MEDS: potassium chloride premix 40 MEQ/100 ML PREMIX 25 MEQ IV (10:04)
[2019-10-15] MEDS: lidocaine 1% INJ 20 mL INJECTION (10:06)
--- NOTE | 2019-10-15 12:30 | PM.PN ---
Subjective Subjective: Interval history: Rebecca was dizzy when I visited her this morning, blood pressure was low when she was transferred to the ICU secondary to sepsis. She was slightly nauseous as well. Medications: Reviewed: Yes Vitals/I&O/Wt Last Vital Signs Temp 98.2 F 10/15/19 08:45 Pulse 81 10/15/19 08:45 Resp 15 10/15/19 08:45 BP 112/72 10/15/19 08:45 Pulse Ox 97 10/15/19 08:45 10/14/19 10/15/19 10/15/19 22:59 06:59 14:59 Intake Total 50 / 50 1701.667 / 1340.347 6132 / 1000 Output Total 475 / 475 Balance 50 50 1226.667 / 3591.359 8435 / 1000 Weight last 48 hrs Weight 81.647 kg Physical Exam Narrative: EXAM NARRATIVE: General exam was a pale appearing white female, with borderline tachycardia Cardiovascular regular rate and rhythm, no murmur Lungs clear Abdomen is soft, positive bowel sounds. Mild tenderness left side Extremities no cyanosis clubbing or edema Some clotted blood is noted in her French Urinary Catheter Management^: French: Cath Placed During This Visit: yes Reason for Continuing Indwelling Catheter: Acute Urinary Retention or Obstruction Urinary Catheter Date of Insertion: 10/14/19 Urinary Catheter Time of Insertion: 18:45 Data : 10/15/19 04:35 10/15/19 04:35 Micro: Microbiology 10/14/19 20:51 Blood Culture - Preliminary Blood SPECIMEN COLLECTED 10/14/19 20:51 Blood Culture - Preliminary Blood SPECIMEN COLLECTED A&P Assessment and plan (1) Sepsis: Placed on Rocephin on admission. 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 Moved to ICU secondary to hypotension Isotonic fluid bolus currently being given Norepinephrine if needed Blood and urine culture had already been obtained. Status: Acute (2) UTI (urinary tract infection): See above Status: Acute Additional A&P Information Hematuria. Likely secondary to infection. Discontinue Lovenox, SCDs for DVT prophylaxis history of migraines MS suspect, currently undergoing evaluation History of depression. Discontinue Effexor while on linezolid. Full code SCDs for DVT prophylaxis Attestations Medical Necessity Statement*: Needs continued hospital stay for IV antibiotics secondary to sepsis. Coding Level of Care Code Acute Head Char Filter Tank Tender for Chg Fwd Diagnoses Sepsis A41.9 UTI (urinary tract infection) N39.0
[2019-10-15] MEDS: linezolid premix 600 MG/300 ML PREMIX 300 MG IV ×2 (14:27→23:55)
--- NOTE | 2019-10-15 18:49 | PC.NURSE ---
transferred to [facility] per w/c
[2019-10-15] MEDS: hyDROXYzine 25 mg Capsule 100 MG PO (21:33)
[2019-10-16] VITALS: BP 96/59; PULSE 92; RESP 20; TEMP 36.6; O2SAT 96
[2019-10-16 04:00] VITALS: BP 93/59; PULSE 87; RESP 20; TEMP 36.7; O2SAT 97
[2019-10-16 04:50] LABS: Basophils % 0.4 %; Eosinophils # 0.1 10^3/uL (0.0-0.8); Eosinophils % 1.7 %; Hematocrit 34.6 % (37.0-47.0); Hemoglobin 11.4 g/dL (11.5-15.3); Lymphocytes # 2.9 10^3/uL (0.8-4.8); Lymphocytes % 34.3 %; Mean Corpuscular HGB Conc 32.9 g/dL (30.0-36.0); Mean Corpuscular Volume 91.1 fL (81-99); Mean Platelet Volume 9.5 fL (7.4-10.4); Monocytes % 11.9 %; Neutrophils # 4.3 10^3/uL (1.8-7.7); Neutrophils % 51.3 %; Nucleated Red Blood Cells % 0 %; Platelet Count 273 10^3/cmm (130-400); Red Cell Distribution Width 13.2 % (12.1-15.1); White Blood Count 8.3 10^3/uL (4.0-10.0)
[2019-10-16 05:09] LABS: Alanine Aminotransferase 15 U/L (0-33); Albumin Level 3.1 g/dL (3.5-5.2); Alkaline Phosphatase 59 IU/L (35-105); Aspartate Amino Transferase 14 U/L (0-32); Blood Urea Nitrogen 3 mg/dL (6-20); Calcium 7.8 mg/dL (8.5-10.5); Carbon Dioxide 23 mmol/L (22-29); Chloride 108 mmol/L (98-107); Globulin 2.3 g/dL (1.3-4.6); Glomerular Filtration Rate 101.1 mL/min (90-130); Glucose 104 mg/dL (65-115); Osmolality Calculated 284 mOsm/kg (285-295); Sodium 139 mmol/L (136-145); Total Bilirubin 0.2 mg/dL (0.15-1.2); Total Protein 5.4 g/dL (6.6-8.7)
[2019-10-16] MEDS: sodium chloride 0.9% 1,000 ML 150 ML IV (05:11)
--- NOTE | 2019-10-16 06:02 | PC.NURSE ---
Sepulveda Removal: Called to room with pt c/o bed being wet. Upon investigation found sepulveda catheter tubing lying on the floor with sepulveda still in place in pt bladder and lying open to air on her bed which was wet. Sepulveda removed for concern of further infection exposure, pt tolerated well. Will notify physician in the morning.
[2019-10-16] MEDS: magnesium oxide 400 mg tablet PO (07:35)
[2019-10-16] MEDS: baclofen 10 mg Tablet PO (07:35)
[2019-10-16] MEDS: metoclopramide 10 mg Tablet PO (07:40)
[2019-10-16 07:55] VITALS: BP 118/80; PULSE 81; RESP 20; TEMP 36.8; O2SAT 99
--- NOTE | 2019-10-16 08:20 | PM.DCS ---
Discharge Providers Date of Admission: 10/15/19 08:45 Date of Discharge: October 16, 2019 Attending Provider at Admission: Tres Gray Attending Provider at Discharge: Sandro Gamez MD Primary Care Provider: ABRAM MCCARTHY DO Diagnoses at Discharge Discharge Diagnosis (1) Sepsis: Status: Acute Problem details: Resolved (2) UTI (urinary tract infection): Status: Acute Problem details: Urine growing gram-negative rods. 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 She was initially placed on Rocephin but when I saw her it was noted her blood pressure was low. She was receiving multiple fluid boluses. She transitioned down to the ICU briefly for close monitoring but did not require pressors. 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 The following day she was feeling much better. She was afebrile. She reported she wanted to be discharged to keep a follow-up with neurology in [place] that has been rescheduled several times. She reported she was feeling back to baseline, even better than normal. Her urine, when I called down to lab was gram-negative nhung, sensitivities pending. I discussed with her the risks of this including return of infection, and/or disability. She elected for discharge. I will discharge her on cefdinir. Culture results will be followed up on tomorrow. I discussed with her if she gets worse she needs to return. If ESBL is found, she will need outpatient IV antibiotics. She was understanding of this. She is to encourage fluids, self cath every 6 hours. She will follow-up with urology and her primary care provider. Of note. She had some hematuria early on in the course that cleared quickly. None was present on discharge. Catheter had been removed prior to discharge as well. Physical Exam Narrative: EXAM NARRATIVE: General exam no apparent distress Cardiovascular regular rate and rhythm without murmur Lungs clear to auscultation bilaterally Abdomen is soft with positive bowel sounds Extremities no cyanosis clubbing or edema Urinary Catheter Management^: French: Cath Placed During This Visit: yes Reason for Continuing Indwelling Catheter: Acute Urinary Retention or Obstruction Urinary Catheter Date of Insertion: 10/14/19 Urinary Catheter Time of Insertion: 18:45 Discharge Data Data Completed and Pending: Completed Studies During Hospitalization Category Date Time Status CT kidney stone [id number] Urgent Cat Scan 10/14/19 19:36 Completed US pelvic complet e* [id number] Urgent Ultrasound 10/14/19 18:24 Completed Pending at discharge Category Date Time Status Blood Culture Sta t Lab 10/14/19 20:51 Results Complete Blood Co unt w/Auto AM LABS Lab 10/17/19 04:00 Ordered Urine Culture Sta t Lab 10/14/19 18:45 Results Labs from last 24 hours 10/16/19 10/16/19 04:30 04:30 WBC 8.3 RBC 3.80 L Hgb 11.4 L Hct 34.6 L MCV 91.1 MCH 30.0 MCHC 32.9 RDW 13.2 Plt Count 273 MPV 9.5 Neut % (Auto) 51.3 Lymph % (Auto) 34.3 [place] % (Auto) 11.9 Eos % (Auto) 1.7 Baso % (Auto) 0.4 Neut # (Auto) 4.3 Lymph # (Auto) 2.9 [place] # (Auto) 1.0 H Eos # (Auto) 0.1 Baso # (Auto) 0.0 Nucleated RBC % (a uto) 0 Nucleated RBCs # 0.0 Sodium 139 Potassium 4.0 Chloride 108 H Carbon Dioxide 23 Anion Gap 12.0 BUN 3 L Creatinine 0.7 GFR Calculation 101.1 Glucose 104 Calculated Osmolal ity 284 L Calcium 7.8 L Total Bilirubin 0.2 AST 14 ALT 15 Alkaline Phosphata se 59 Total Protein 5.4 L Albumin 3.1 L Globulin 2.3 Vitals: Last Vital Signs Temp 98.2 F 10/16/19 07:55 Pulse 81 10/16/19 07:55 Resp 20 H 10/16/19 07:55 BP 118/80 10/16/19 07:55 Pulse Ox 99 10/16/19 07:55 Discharge Plan Discharge Patient Disposition: Home, Self-Care Condition: Stable Prescriptions: New cefdinir 300 mg capsule 300 mg PO Q12H 13 Days Qty: 26 RF: 0 Continued hydroxyzine HCl 50 mg tablet 100 mg PO BEDTIME Qty: 60 RF: 3 venlafaxine 150 mg capsule,extended release 24hr 150 mg PO DAILY RF: 0 acetaminophen [Tylenol Extra Strength] 500 mg Tablet 1,000 mg PO PRN RF: 0 trazodone 100 mg tablet 100 mg PO BEDTIME PRN (Reason: Sleep) RF: 0 baclofen 10 mg tablet 10 mg PO TID PRN (Reason: Muscle Spasm) RF: 0 metoclopramide HCl 10 mg tablet 10 mg PO DAILY PRN (Reason: headache nausea) RF: 0 magnesium oxide 400 mg magnesium Capsule 400 mg PO DAILY RF: 0 Discontinued ibuprofen 200 mg Tablet 800 mg PO Q6H PRN (Reason: PAIN) RF: 0 Discharge Orders: Discharge Order (Routine); Ordered 10/16/19 Ordered By: Sandro Gamez Referrals: ABRAM MCCARTHY DO [Primary Care Provider] - 1-3 days Duncan hAn MD [Physician] - 7-10 days Discharge Diet: Regular Discharge Activity: Resume usual activity Activity Restrictions/Additional Instructions: Self cath every 6 hours Return immediately for any fever, worsening symptoms. Keep follow-up with urology, primary care provider Discharge Attestations Time Spent in Discharge Care*: greater than 30 min Quality Metrics Clinical Quality Measures During this hospital stay, did patient experience: None Coding Level of Care Code Acute Bait Packer for Killian Cantu Diagnoses Sepsis A41.9 UTI (urinary tract infection) N39.0
[2019-10-16 09:34] VITALS: BP 118/80; PULSE 81; RESP 18; TEMP 36.8; O2SAT 99
[2019-10-16 10:00] VITALS: RESP 20
== END 2019-10-16 10:50 | disposition home or self-care (01) | DRG 872 ==
LOC: ER 21:04 → MEDSURG 21:39 → ICU 10-15 08:40 → MEDSURG 10-15 20:22
PROVIDERS: Emergency Medicine; Admitting Provider Internal Medicine; PCP Internal Medicine; Visit Provider Internal Medicine
DX: A41.9 Sepsis, unspecified organism (principal); N39.0 Urinary tract infection, site not specified; G43.909 Migraine, unspecified, not intractable, without status migrainosus; E28.2 Polycystic ovarian syndrome; Z87.440 Personal history of urinary (tract) infections; F17.210 Nicotine dependence, cigarettes, uncomplicated; N31.9 Neuromuscular dysfunction of bladder, unspecified; I95.9 Hypotension, unspecified
CPT/HCPCS: 12345; 36415; 51702; 74176; 76856; 80048; 80053; 81001; 81025; 83605; 83690; 83735; 85025; 87040; 87077; 87086; 87186; 96372; 96375; 99283; G0378; J0696; J0743; J1170; J1650; J1885; J2001; J2020; J2405; J3480; J7030; J7040; J7050; J8597

== ENCOUNTER → 2019-10-24 08:30 | Outpatient (BNVA) | payer SELFPAY | PROVIDERS: PCP Internal Medicine; Visit Provider Urology | DX: N30.10 Interstitial cystitis (chronic) without hematuria (principal); R33.9 Retention of urine, unspecified | CPT/HCPCS: 81001 ==

== ENCOUNTER → 2019-12-09 13:22 | Outpatient (BNVA) | payer SELFPAY | PROVIDERS: PCP Internal Medicine; Visit Provider Specialist | DX: G43.711 Chronic migraine without aura, intractable, with status migrainosus (principal); R56.9 Unspecified convulsions; N31.9 Neuromuscular dysfunction of bladder, unspecified; F44.5 Conversion disorder with seizures or convulsions | CPT/HCPCS: 99204 ==

== ENCOUNTER 2019-12-25 15:35 | Emergency (ER) | payer SELFPAY ==
[2019-12-25 16:35] VITALS: BP 126/78; PULSE 85; RESP 14; TEMP 36.7; O2SAT 96; BMI 39.6
[2019-12-25 17:08] VITALS: O2SAT 97
[2019-12-25 17:33] VITALS: BP 148/68; PULSE 86; O2SAT 97
[2019-12-25 17:44] LABS: Basophils % 0.2 %; Eosinophils # 0.1 10^3/uL (0.0-0.8); Eosinophils % 0.8 %; Hematocrit 42.8 % (37.0-47.0); Hemoglobin 13.8 g/dL (11.5-15.3); Lymphocytes # 1.9 10^3/uL (0.8-4.8); Lymphocytes % 11.9 %; Mean Corpuscular HGB Conc 32.2 g/dL (30.0-36.0); Mean Corpuscular Hemoglobin 28.4 pg (28.0-34.0); Mean Corpuscular Volume 88.1 fL (81-99); Mean Platelet Volume 8.8 fL (7.4-10.4); Monocytes # 0.9 10^3/uL (0.2-0.9); Monocytes % 5.4 %; Neutrophils # 12.91 10^3/uL (1.8-7.7); Neutrophils % 81.4 %; Nucleated Red Blood Cells % 0 %; Platelet Count 366 10^3/cmm (130-400); Red Blood Count 4.86 10^6/uL (4.1-5.3); Red Cell Distribution Width 11.5 % (12.1-15.1); White Blood Count 15.8 10^3/uL (4.0-10.0)
[2019-12-25] MEDS: ondansetron 2 mg/ML SDV 2 mL 4 MG IVP (17:45)
[2019-12-25] MEDS: sodium chloride 0.9% 1,000 ML 999 ML IV (17:45)
[2019-12-25 17:50] LABS: Add Urine Microscopic? YES; Bilirubin Urine Neg (NEGATIVE); Blood Urine 3+ (Negative); Glucose Urine UA Norm (Normal); Ketones Urine Negative (Negative); Leukocyte Esterase Urine 2+ (Negative); Nitrate Urine Negative (Negative); Protein Urine 1+ (Negative); Specific Gravity, Urine 1.005 (1.005-1.030); Urine Appearance Cloudy (CLEAR); Urine Color Yellow (Yellow); Urobilinogen Urine Norm (Negative); pH Urine 7 (5-7)
[2019-12-25 17:53] LABS: Add Urine Culture? Yes; Bacteria Urine 3+; RBC Urine 40-50 /hpf (0-2); WBC Urine TOO NUMEROUS TO CNT /hpf (0-5)
--- NOTE | 2019-12-25 17:53 | ED_ITS ---
HPI - Abdominal Pain General: Chief Complaint: Abdominal Pain Stated Complaint: ABD PAIN Time Seen by Provider: 12/25/19 17:02 History of Present Illness: HPI narrative: This patient is a 24-year-old female who presents today with left flank pain and nausea and vomiting. She reports that she is having a lot of pain with urination. She has a history of incomplete bladder emptying secondary to neurogenic bladder and self caths as well as urinates normally. She has had multiple episodes of UTIs in kidney infections. She also has a history of PCOS. She has been diagnosed with interstitial cystitis. She has seen Dr. Ahn for this. She is having pain in her left flank. She says this is just like when she has had prior kidney infections. She has been told at times that she had a stone in her kidney as well but other times she was told that there was no stone so she is not sure about that. She also said she took a home test yesterday and it was weakly positive . MD elicited complaint: abdominal pain and flank pain Pertinent past history: past UTI Onset (ago): day(s) (1) Pain Consistency: constant Severity: severe Quality: aching Radiation: none Associated Symptoms: Reports dysuria and vomiting; Denies chills and fever(s) Review of Systems General: Reports: 10 or more systems reviewed and unremarkable except in HPI and below Const: Reports: malaise; Denies: fever(s), chills or fatigue Eyes: Denies: change in vision ENMT: Denies: odynophagia Card: Denies: chest pain or swelling of feet/ankles Resp: Denies: dyspnea, productive cough or non-productive cough GI: Reports: vomiting : Reports: flank pain, difficulty voiding and dysuria Musc: Denies: neck pain or back pain Skin/Breast: Denies: rash Neuro: Denies: headache(s), numbness in extremities or weakness in extremities Jimmy/Lymph: Denies: easy bruising or easy bleeding PFSH ED PFSH: Medical History Incomplete bladder emptying Interstitial cystitis Migraine headache Neurogenic bladder PCOS (polycystic ovarian syndrome) Recurrent UTI Family History Father CAD (coronary artery disease) Mother Pancreatitis Social History Smoking and tobacco status: former smoker Marital status: Current occupational status: employed History of recent travel: No Physical Exam Const: COMMON NORMALS: patient oriented x3, no limitations and alert GENERAL APPEARANCE: cooperative HENMT: HEAD & SCALP: normal to inspection FACE & SINUS: normal facial exam Eye: GENERAL EYE: appearance normal, both eyes and all related structures Neck/C-Spine: COMMON NORMALS: supple, no meningeal signs and no JVD Chest: COMMONS NORMALS: normal inspection of the chest Resp: COMMON NORMALS: normal respiratory effort, No use of accessory muscles and clear to auscultation bilaterally AUSCULTATION: clear to auscultation bilaterally Cardio: COMMON NORMALS: no JVD, regular rate, regular rhythm and No murmurs present (Cardio) RATE: regular rate RHYTHM: regular rhythm GI: COMMON NORMALS: Normal to inspection, nondistended, normoactive bowel sounds present, Soft to palpation and non-tender INSPECTION: Yes normal to inspection AUSCULTATION: Yes normoactive bowel sounds PALPATION: Yes Soft to palpation : BLADDER/KIDNEY EXAM: Yes CVA tenderness Back/Pelvis: COMMON NORMALS: thoracic and lumbar spine normal to inspection GENERAL BACK: Yes CVA tenderness CVA tenderness: left Extremity: COMMON NORMALS: normal to inspection Neuro: COMMON NORMALS: patient oriented x3, moves all extremities, no focal motor deficits and no sensory deficits noted SENSORIUM/ORIENTATION: Yes alert MENINGEAL SIGNS: Yes no meningeal signs Psych: COMMON NORMALS: mental status grossly normal, cooperative and normal affect Skin: COMMON NORMALS: no rashes or lesions noted and turgor normal GENERAL SKIN EXAM: no rashes or lesions noted and turgor normal Course ED course: Improved with pain meds, antiemetics and fluids. She does have a UTI and was treated with Rocephin. She has a prescription for cefdinir waiting for her at her pharmacy which she will shrimp picker tomorrow. She also has Zofran and Reglan at home. She will follow-up with Dr. Ahn or her primary care mateo andrade. She understands return precautions. Vital Signs: Vital signs: Vital Signs Temperature 98.0 F 12/25/19 16:35 Pulse Rate 77 12/25/19 19:38 Respiratory Rate 18 07/23/20 19:38 Blood Pressure 129/67 12/25/19 19:38 Pulse Oximetry 99 12/25/19 19:38 MDM - Abdominal Pain Lab Data: Labs: Lab Results 12/25/19 12/25/19 12/25/19 Range/Units 17:15 17:33 17:33 WBC 15.8 H (4.0-10.0) 10^3/ uL RBC 4.86 (4.1-5.3) 10^6/u L Hgb 13.8 (11.5-15.3) g/dL Hct 42.8 (37.0-47.0) % MCV 88.1 (81-99) fL MCH 28.4 (28.0-34.0) pg MCHC 32.2 (30.0-36.0) g/dL RDW 11.5 L (12.1-15.1) % Plt Count 366 (130-400) 10^3/c mm MPV 8.8 (7.4-10.4) fL Neut % (Auto) 81.4 % Lymph % (Auto) 11.9 % [place] % (Auto) 5.4 % Eos % (Auto) 0.8 % Baso % (Auto) 0.2 % Neut # (Auto) 12.91 H (1.8-7.7) 10^3/u L Lymph # (Auto) 1.9 (0.8-4.8) 10^3/u L [place] # (Auto) 0.9 (0.2-0.9) 10^3/u L Eos # (Auto) 0.1 (0.0-0.8) 10^3/u L Baso # (Auto) 0.0 (0.0-0.1) 10^3/u L Nucleated RBC % (a uto) 0 % Nucleated RBCs # 0.0 /100WBC Sodium 134 L (136-145) mmol/L Potassium 4.4 (3.5-5.1) mmol/L Chloride 99 (98-107) mmol/L Carbon Dioxide 24 (22-29) mmol/L Anion Gap 15.4 (5-19) BUN 5 L (6-20) mg/dL Creatinine 0.7 (0.5-0.9) mg/dL GFR Calculation 101.1 (90-130) mL/min Glucose 110 (65-115) mg/dL Calculated Osmolal ity 274 L (285-295) mOsm/k g Calcium 9.5 (8.5-10.5) mg/dL Total Bilirubin 0.3 (0.15-1.2) mg/dL AST 17 (0-32) U/L ALT 17 (0-33) U/L Alkaline Phosphata se 70 (35-105) IU/L Total Protein 7.2 (6.6-8.7) g/dL Albumin 4.5 (3.5-5.2) g/dL Globulin 2.7 (1.3-4.6) g/dL Lipase 16 (13-60) U/L HCG, Qual (Negative) Urine Color Yellow (Yellow) Urine Appearance Cloudy (CLEAR) Urine pH 7 (5-7) Ur Specific Gravit y 1.005 (1.005-1.030) Urine Protein 1+ H (Negative) Urine Glucose (UA) Norm (Normal) Urine Ketones Negative (Negative) Urine Blood 3+ H (Negative) Urine Nitrate Negative (Negative) Urine Bilirubin Neg (NEGATIVE) Urine Urobilinogen Norm (Negative) mg/dL Ur Leukocyte Debbie ase 2+ H (Negative) Urine RBC 40-50 H (0-2) /hpf Urine WBC Too numerous to c nt H (0-5) /hpf Ur Squamous Epith Cells 5-10 H (0-5) Amorphous Sediment Not Reportable Urine Bacteria 3+ H (NONE) 12/25/19 Range/Units 17:33 WBC (4.0-10.0) 10^3/ uL RBC (4.1-5.3) 10^6/u L Hgb (11.5-15.3) g/dL Hct (37.0-47.0) % MCV (81-99) fL MCH (28.0-34.0) pg MCHC (30.0-36.0) g/dL RDW (12.1-15.1) % Plt Count (130-400) 10^3/c mm MPV (7.4-10.4) fL Neut % (Auto) % Lymph % (Auto) % [place] % (Auto) % Eos % (Auto) % Baso % (Auto) % Neut # (Auto) (1.8-7.7) 10^3/u L Lymph # (Auto) (0.8-4.8) 10^3/u L [place] # (Auto) (0.2-0.9) 10^3/u L Eos # (Auto) (0.0-0.8) 10^3/u L Baso # (Auto) (0.0-0.1) 10^3/u L Nucleated RBC % (a uto) % Nucleated RBCs # /100WBC Sodium (136-145) mmol/L Potassium (3.5-5.1) mmol/L Chloride (98-107) mmol/L Carbon Dioxide (22-29) mmol/L Anion Gap (5-19) BUN (6-20) mg/dL Creatinine (0.5-0.9) mg/dL GFR Calculation (90-130) mL/min Glucose (65-115) mg/dL Calculated Osmolal ity (285-295) mOsm/k g Calcium (8.5-10.5) mg/dL Total Bilirubin (0.15-1.2) mg/dL AST (0-32) U/L ALT (0-33) U/L Alkaline Phosphata se (35-105) IU/L Total Protein (6.6-8.7) g/dL Albumin (3.5-5.2) g/dL Globulin (1.3-4.6) g/dL Lipase (13-60) U/L HCG, Qual Negative (Negative) Urine Color (Yellow) Urine Appearance (CLEAR) Urine pH (5-7) Ur Specific Gravit y (1.005-1.030) Urine Protein (Negative) Urine Glucose (UA) (Normal) Urine Ketones (Negative) Urine Blood (Negative) Urine Nitrate (Negative) Urine Bilirubin (NEGATIVE) Urine Urobilinogen (Negative) mg/dL Ur Leukocyte Debbie ase (Negative) Urine RBC (0-2) /hpf Urine WBC (0-5) /hpf Ur Squamous Epith Cells (0-5) Amorphous Sediment Urine Bacteria (NONE) Discharge Plan Discharge Patient Disposition: Home Clinical Impression: Recurrent UTI, Pyelonephritis Condition: Stable Prescriptions: New ondansetron HCl 4 mg tablet 4 mg PO Q6H PRN (Reason: nausea and vomiting) Qty: 7 RF: 0 No Action trazodone 100 mg tablet 100 mg PO DAILY RF: 0 B-complex with vitamin C Capsule 1 cap PO DAILY RF: 0 ibuprofen 800 mg tablet 800 mg PO TID PRN (Reason: Pain) RF: 0 Aimovig Autoinjector 140 mg/mL auto-injector 140 mg SUBCUT .MONTHLY Qty: 1 RF: 5 venlafaxine 150 mg capsule,extended release 24hr 150 mg PO DAILY Qty: 30 RF: 4 mecobalamin (vitamin B12) 5,000 mcg lozenge 5,000 mcg PO DAILY RF: 0 ferrous sulfate 325 mg (65 mg iron) tablet 325 mg PO DAILY RF: 0 cefdinir 300 mg capsule 300 mg PO Q12H Qty: 28 RF: 2 hydroxyzine HCl 50 mg tablet 100 mg PO BID Qty: 120 RF: 6 baclofen 10 mg tablet 10 mg PO TID PRN (Reason: Muscle Spasm) RF: 0 metoclopramide HCl 10 mg tablet 10 mg PO DAILY PRN (Reason: headache nausea) RF: 0 magnesium oxide 400 mg magnesium Capsule 400 mg PO DAILY RF: 0 acetaminophen [Tylenol Extra Strength] 500 mg tablet 2,000 mg PO PRN RF: 0 Discharge Orders: Discharge Order (Routine); Ordered 12/25/19 Ordered By: Karoline De Referrals: ABRAM MCCARTHY, [Primary Care Provider] - Discharge Diet: Usual diet Discharge Activity: Resume usual activity Patient Instructions: Acute Pyelonephritis (ED) Activity Restrictions/Additional Instructions: Return to the emergency department if unable to tolerate fluids, unable to keep down your medications or fluids or any other new or concerning symptoms. Follow-up with your primary care doctor or with Dr. Ahn in about 10 days for recheck. Stand Alone Forms: Work/School Release Discharge Date/Time: 12/25/19 19:41 Coding Level of Care Code ED Special Needs Tutor for Chg Fwd Exam Comprehensive
[2019-12-25 18:03] LABS: Alanine Aminotransferase 17 U/L (0-33); Albumin Level 4.5 g/dL (3.5-5.2); Alkaline Phosphatase 70 IU/L (35-105); Anion Gap 15.4 (5-19); Aspartate Amino Transferase 17 U/L (0-32); Blood Urea Nitrogen 5 mg/dL (6-20); Calcium 9.5 mg/dL (8.5-10.5); Carbon Dioxide 24 mmol/L (22-29); Chloride 99 mmol/L (98-107); Globulin 2.7 g/dL (1.3-4.6); Glomerular Filtration Rate 101.1 mL/min (90-130); Glucose 110 mg/dL (65-115); Lipase 16 U/L (13-60); Osmolality Calculated 274 mOsm/kg (285-295); Potassium 4.4 mmol/L (3.5-5.1); Sodium 134 mmol/L (136-145); Total Bilirubin 0.3 mg/dL (0.15-1.2); Total Protein 7.2 g/dL (6.6-8.7)
[2019-12-25 18:21] LABS: HCG, Serum Qual Negative (Negative)
--- NOTE | 2019-12-25 18:25 | PC.NURSE ---
up to bathroom & needed blanket
[2019-12-25] MEDS: cefTRIAXone 1,000 MG in sodium chloride 0.9% (plus) 50 ML 100 MG IV (18:45)
[2019-12-25 18:48] VITALS: RESP 18; O2SAT 95
[2019-12-25] MEDS: fentaNYL 50 mcg/mL INJ 2mL 25 MCG IVP (18:48)
[2019-12-25] MEDS: ketorolac 30 mg/mL INJ 15 MG IVP (18:49)
[2019-12-25 19:17] VITALS: BP 125/63; PULSE 81; RESP 14; O2SAT 97
[2019-12-25] MEDS: calcium carbonate 500 mg Chew Tablet 1000 MG PO (19:21)
[2019-12-25 19:38] VITALS: BP 129/67; PULSE 77; RESP 18; O2SAT 99
== END 2019-12-25 19:41 | disposition home or self-care (01) ==
PROVIDERS: Physician Assistant; Emergency Provider Emergency Medicine; PCP Internal Medicine
DX: N12 Tubulo-interstitial nephritis, not specified as acute or chronic (principal); N39.0 Urinary tract infection, site not specified; Z87.440 Personal history of urinary (tract) infections; Z87.891 Personal history of nicotine dependence
CPT/HCPCS: 12345; 80053; 81001; 81003; 83690; 84703; 85025; 87077; 87086; 87186; 96365; 96375; 99283; J0696; J1885; J2405; J3010; J7030

== ENCOUNTER → 2020-02-05 12:35 | Outpatient (BNVA) | payer SELFPAY | PROVIDERS: PCP Internal Medicine; Visit Provider Specialist | DX: G43.711 Chronic migraine without aura, intractable, with status migrainosus (principal); Z87.891 Personal history of nicotine dependence | CPT/HCPCS: 96372; 99213; J1885 ==

== ENCOUNTER 2020-02-11 18:32 | Emergency (ER) | payer SELFPAY ==
--- NOTE | 2020-02-11 18:35 | XR_ITS ---
WS: [id number] Portable AP upright chest, 02/11/2020 Clinical Data: sob Comparison: PA chest, 08/29/2017. Findings: No nodules, masses or effusions are seen. The heart is normal. The pulmonary vascularity is not increased. No pneumonia or pneumothorax is seen. XR/XR chest 1V portable [id number] Impression: Negative chest.
[2020-02-11 18:42] VITALS: BP 107/88; PULSE 92; RESP 18; TEMP 36.9; O2SAT 98; BMI 58.6
--- NOTE | 2020-02-11 18:59 | ED_ITS ---
HPI - URI/Sore Throat General: Chief Complaint: Shortness of Breath/Dyspnea Stated Complaint: covid symtpoms Time Seen by Provider: 02/11/20 18:45 History of Present Illness: HPI Narrative: 24-year-old female patient presents to the emergency department with complaints of, COVID symptoms , she reports exposure to a friend who tested positive for COVID approximately 10 days ago. She reports nausea vomiting with diarrhea x1 day then upper respiratory and sy mptoms followed next 2-3 days. She reports fever of 101 started last night. States cough congestion x2 days with green productive sputum. Reports utilizing her inhaler and is almost out puffs, reports feels as if her migraine is starting, she is requesting refill of her Zofran. States did not take anything for fever or body aches. MD elicited complaint: fever, cough, rhinorrhea and nasal congestion Onset (ago): day(s) (4-5) Consistency: constant and progressively worsening Severity: moderate Description of mucous: clear, watery and green (Sputum production) Exacerbating factors: nothing Context: sick contacts and other (Continues with tobacco abuse) Associated symptoms: Reports chills, congestion, cough, diarrhea (Resolved 3 days ago), fever(s) (Temp 101 yesterday), headache(s), nasal congestion, nausea, rhinorrhea, sinus pain, sore throat and vomiting; Deny abdominal pain or chest pain Treatments prior to arrival: none Review of Systems General: Reports: 10 or more systems reviewed and unremarkable except in HPI and below Const: Reports: fever(s) (Temp 101 yesterday) and chills Eyes: Denies: blurry vision or eye redness ENMT: Reports: nasal discharge, nasal congestion and sinus pain Card: Denies: chest pain, palpitations, irregular heart rhythm or dyspnea on exertion Resp: Reports: dyspnea (with cough), productive cough, change in phlegm color and chest congestion; Denies: non-productive cough, wheezing, pain on inspiration or hemoptysis GI: Reports: nausea, vomiting and diarrhea (Resolved 3 days ago); Denies: abdominal pain, heartburn or pain on defecation : Denies: difficulty voiding or dysuria Musc: Reports: other (myalgia); Denies: neck pain or back pain Skin/Breast: Denies: rash or pruritus Neuro: Reports: headache(s) Jimmy/Lymph: Denies: easy bruising [facility] ED PFS: Medical History (Updated 02/11/20 @ 20:04 by GUILLERMINA Marroquin) Incomplete bladder emptying Interstitial cystitis Migraine headache Neurogenic bladder PCOS (polycystic ovarian syndrome) Recurrent UTI Family History Father CAD (coronary artery disease) Mother Pancreatitis Social History Smoking and tobacco status: former smoker Marital status: Current occupational status: employed History of recent travel: No Physical Exam Const: COMMON NORMALS: no acute distress, patient oriented x3, healthy appearing, alert and well nourished GENERAL APPEARANCE: cooperative, well kempt and well hydrated; not ill appearing NUTRITIONAL APPEARANCE: obese ORIENTATION/CONSCIOUSNESS: Yes awake, Yes oriented to person and Yes oriented to place HENMT: COMMON NORMALS: normocephalic, external ears normal, EAC's normal, Normal external nose present and moist oral mucous membranes HEAD & SCALP: normocephalic FACE & SINUS: normal facial exam and sinus tenderness maxillary NOSE: Normal external nose present, Abnormal mucous membranes and turbinates present boggy and Nasal discharge present EXTERNAL EAR: Yes external ears normal EXTERNAL AUDITORY CANAL: EAC's normal TYMPANIC MEMBRANE: TM abnormal TM laterality: bilateral dull and erythematous THROAT: uvula mi dline, posterior oropharynx abnormal cobblestoning and postnasal drainage Eye: COMMON NORMALS: Equal, round and reactive pupils present and EOMs intact bilaterally GENERAL EYE: appearance normal, both eyes and all related structures PUPIL: Yes Equal, round and reactive pupils present Neck/C-Spine: COMMON NORMALS: full ROM and no lymphadenopathy GENERAL: Yes normal visual inspection, Yes trachea midline and No lymphadenopathy CERVICAL SPINE: Yes cervical ROM normal, No pain with cervical ROM, No Cervical spine tenderness and Yes other (Negative Kernig) Lymph: LYMPHATIC: no lymphadenopathy noted Chest: COMMONS NORMALS: normal inspection of the chest Resp: COMMON NORMALS: normal respiratory effort and clear to auscultation bilaterally AUSCULTATION: clear to auscultation bilaterally Cardio: COMMON NORMALS: regular rhythm, S1 normal heart sound present, S2 normal heart sound present and Peripheral pulses 2+ throughout RHYTHM: regular rhythm HEART SOUNDS: S1 normal heart sound present and S2 normal heart sound present PERIPHERAL PULSES: Peripheral pulses 2+ throughout GI: COMMON NORMALS: Normal to inspection, nondistended, normoactive bowel sounds present, Soft to palpation and non-tender INSPECTION: Yes normal to inspection PALPATION: Yes Soft to palpation : COMMON NORMALS: Yes no CVA tenderness BLADDER/KIDNEY EXAM: Yes no CVA tenderness Back/Pelvis: COMMON NORMALS: no CVA tenderness and thoracic and lumbar spine normal to inspection Extremity: COMMON NORMALS: normal to inspection and capillary refill normal Neuro: LORRAINE COMA SCALE: document GCS findings [place] coma scale eye openin g: Spontaneous [place] coma scale verbal response: Orientated [place] coma scale motor response: Obey commands [place] coma scale total score: 15 COMMON NORMALS: patient oriented x3 and no focal motor deficits SENSORIUM/ORIENTATION: Yes alert, Yes oriented to person and Yes oriented to place CRANIAL NERVES: Yes CN normal except as noted SPEECH: speech normal GAIT: Yes Normal gait present MOTOR EXAM: 5/5 motor strength present thro ughout Psych: COMMON NORMALS: mental status grossly normal, Normal thought process present and cooperative APPEARANCE: Yes well kempt ACTIVITY/MOTOR BEHAVIOR: Yes appropriate eye contact THOUGHT PROCESS: Normal thought process present Skin: COMMON NORMALS: no rashes or lesions noted and turgor normal GENERAL SKIN EXAM: no rashes or lesions noted and turgor normal Course ED course: 24-year-old female presents to the emergency department with flulik e symptoms, bronchitis, change of sputum past few days with onset of fever on day 5 of illness. During her stay here, she reports was developing a migraine headache and requested Toradol, Benadryl, and dexamethasone, then migraine cocktail. Migraine headache resolved, she agrees to go home and quarantine for 10 days as COVID test results are pending. Influenza and strep screens negative. She was able to tolerate p.o. fluids during her stay. She was counseled on smoking cessation and chronic lung disease. O2 saturation during her stay remained 97 to 100% on room air. Vital Signs: Vital signs: Vital Signs Temperature 98.4 F 02/11/20 18:42 Pulse Rate 72 02/11/20 20:42 Respiratory Rate 16 02/11/20 20:42 Blood Pressure 126/61 02/11/20 20:42 Pulse Oximetry 98 02/11/20 20:42 MDM - URI/Sore Throat Lab Data: Labs: Lab Results 02/11/20 02/11/20 Range/Units 19:18 19:18 Influenza Type A A g Negative (Negative) Influenza Type B A g Negative (Negative) Group A Strep Rapi d Negative (Negative) Discharge Plan Discharge Patient Disposition: Home Clinical Impression: Flu-like symptoms, Bronchitis Migraine headache Qualifiers: Migraine type: chronic without aura Status migrainosus presence: with status migrainosus Intractability: intractable Qualified Code(s): G43.711 - Chronic migraine without aura, intractable, with status migrainosus Condition: Stable Prescriptions: New doxycycline hyclate 100 mg tablet 100 mg PO BID 7 Days Qty: 14 RF: 0 Zofran 4 mg tablet 4 mg PO Q6H PRN (Reason: nausea and vomiting) Qty: 10 RF: 0 Ventolin HFA 90 mcg/actuation HFA aerosol inhaler 2 inh INHALATION QID PRN (Reason: shortness of breath or wheezing) Qty: 18 RF: 0 No Action trazodone 100 mg tablet 100 mg PO DAILY RF: 0 B-complex with vitamin C Capsule 1 cap PO DAILY RF: 0 ibuprofen 800 mg tablet 800 mg PO TID PRN (Reason: Pain) RF: 0 venlafaxine 150 mg capsule,extended release 24hr 150 mg PO DAILY Qty: 30 RF: 4 mecobalamin (vitamin B12) 5,000 mcg lozenge 5,000 mcg PO DAILY RF: 0 ferrous sulfate 325 mg (65 mg iron) tablet 325 mg PO DAILY RF: 0 cefdinir 300 mg capsule 300 mg PO Q12H Qty: 28 RF: 2 hydroxyzine HCl 50 mg tablet 100 mg PO BID Qty: 120 RF: 6 baclofen 10 mg tablet 10 mg PO TID PRN (Reason: Muscle Spasm) RF: 0 metoclopramide HCl 10 mg tablet 10 mg PO DAILY PRN (Reason: headache nausea) RF: 0 magnesium oxide 400 mg magnesium Capsule 400 mg PO DAILY RF: 0 acetaminophen [Tylenol Extra Strength] 500 mg tablet 2,000 mg PO PRN RF: 0 ondansetron HCl 4 mg tablet 4 mg PO Q6H PRN (Reason: nausea and vomiting) Qty: 7 RF: 0 Discharge Orders: Discharge Order (Routine); Ordered 02/11/20 Ordered By: Sosa Mata Referrals: Sis Da Silva DO [Primary Care Provider] - Discharge Diet: Advance as tolerated and Clear Liquid Discharge Activity: Limit activity as instructed Patient Instructions: Headache - Migraine (Adult), Acute Bronchitis (ED) Activity Restrictions/Additional Instructions: Rest at home today you have had medication that may make you drowsy You are to quarantine at home for the next 10 days, covered results will be called to you Refill of Zofran has been provided to you Refill of inhaler has been provided to you as requested You are to follow-up with your primary care physician in 5 to 7 days for follow- up Return to the emergency department if you develop chest pain, shortness of breath, inability to catch your breath, or coughing up blood Take antibiotics until all gone, take with food Discharge Date/Time: 02/11/20 20:45 Coding Level of Care Code ED Photograph Editor for Killian Fwmateo Exam Comprehensive
[2020-02-11 19:46] LABS: Influenza A by IFA Negative (Negative); Influenza B by IFA Negative (Negative)
[2020-02-11] MEDS: ondansetron 4 MG Tablet PO (19:52)
[2020-02-11] MEDS: sodium chloride 0.9% 500 ML 999 ML IV (19:56)
[2020-02-11 19:58] LABS: Rapid Strep A Test Negative (Negative)
[2020-02-11] MEDS: ketorolac 30 mg/mL INJ IVP (20:06)
[2020-02-11] MEDS: diphenhydrAMINE 50 mg/mL SDV 1mL 25 MG IVP (20:06)
[2020-02-11] MEDS: dexamethasone 4 mg/mL INJ 8 MG IVP (20:06)
[2020-02-11 20:42] VITALS: BP 126/61; PULSE 72; RESP 16; O2SAT 98
[2020-02-13 20:17] LABS: Quest SARS-CoV-2 RNA NOT DETECTED (NOT DETECTED)
--- NOTE | 2020-02-14 08:17 | PC.NURSE ---
Pt called and notified of negative COVID result.
== END 2020-02-11 20:45 | disposition home or self-care (01) ==
PROVIDERS: Emergency Provider Nurse Practitioner Family; PCP Internal Medicine
DX: J40 Bronchitis, not specified as acute or chronic (principal); G43.711 Chronic migraine without aura, intractable, with status migrainosus; Z87.891 Personal history of nicotine dependence
CPT/HCPCS: 12345; 71045; 87081; 87635; 87804; 87880; 96374; 96375; 99283; J1100; J1200; J1885; J7040; Q0162

== ENCOUNTER → 2020-02-19 13:00 | Outpatient (BNVA) | payer SELFPAY | PROVIDERS: PCP Internal Medicine; Visit Provider Specialist | DX: R56.9 Unspecified convulsions (principal); Z87.891 Personal history of nicotine dependence | CPT/HCPCS: 95816 ==

== ENCOUNTER 2020-04-07 12:01 | Emergency (ER) | payer SELFPAY ==
[2020-04-07 12:04] VITALS: BP 140/90; PULSE 111; RESP 18; TEMP 37.7; O2SAT 96; BMI 40.7
--- NOTE | 2020-04-07 13:31 | PC.NURSE ---
Urine labeled at bedside and taken to lab for UA
[2020-04-07 14:03] LABS: Basophils % 0.3 %; Eosinophils # 0.3 10^3/uL (0.0-0.8); Eosinophils % 2.9 %; Hemoglobin 14.3 g/dL (11.5-15.3); Lymphocytes # 2.9 10^3/uL (0.8-4.8); Lymphocytes % 28.7 %; Mean Corpuscular HGB Conc 33.3 g/dL (30.0-36.0); Mean Corpuscular Hemoglobin 28.5 pg (28.0-34.0); Mean Corpuscular Volume 85.7 fL (81-99); Mean Platelet Volume 9.3 fL (7.4-10.4); Monocytes # 0.9 10^3/uL (0.2-0.9); Monocytes % 9.3 %; Neutrophils # 5.88 10^3/uL (1.8-7.7); Neutrophils % 58.5 %; Nucleated Red Blood Cells % 0 %; Platelet Count 416 10^3/cmm (130-400); Red Blood Count 5.02 10^6/uL (4.1-5.3); Red Cell Distribution Width 13.2 % (12.1-15.1); White Blood Count 10.1 10^3/uL (4.0-10.0)
--- NOTE | 2020-04-07 14:24 | US_ITS ---
WS: [id number] US OB lmt with transvaginal REASON FOR EXAM: pain, bleeding FINDINGS: The uterus measures 6.40 x 3.33 x 3.5 cm. Uterus is moderately anteverted. Endometrial thickness is 5 .58 mm. No intrauterine fluid collection or other findings of intrauterine . The right ovary measures 4.00 x 2.13 x 3.39 cm. The right ovary contains multiple small follicular c ysts. The left ovary measures 2.32 x 2.33 x 3.22 cm. No follicular cysts identified. No pelvic mass is identified. No free fluid is identified in the cul-de-sac.
--- NOTE | 2020-04-07 14:43 | W.ED.PREGNAN ---
HPI - General: Chief complaint: Vaginal Bleeding Stated complaint: POSSIBLE MISCARRIAGE, CRAMPS, BLEEDING Time Seen by Provider: 04/07/20 12:46 History of Present Illness: HPI Narrative: This patient is a 24-year-old female who presents today with left lower quadrant pain and vaginal bleeding. She said she has a history of very irregular periods with PCOS. She has not had a period in about 2 years. She started having type symptoms about 3 weeks ago and checked a test. It was positive. She checked it again about a week later and it was positive again. She comes in today with some bleeding that started this morning as well as cramping in her pelvis and worse on the left side. She said she is pretty sure she is having a miscarriage. 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 She has 1 living child who is 8 or 9 years old. She said she almost lost that due to her Rh factor as well. She has had 1 miscarriage before her normal and 3 miscarriages over the past year. She said she was on control pills but stopped taking them because she did not think she could get . She no longer has an COMMUNITY CENTER WORKER because he told her that she was fat needed to lose weight. She does see a primary care provider as well as a neurologist for multiple neurological issues. She has never had a D&C or any surgery on her ovaries or tubes. She has had her appendix and gallbladder removed. Complaint: vaginal bleeding Onset (ago): hour(s) (4) Pain Consistency: constant Location: pelvis Severity: similar to previous episodes Quality: Cramping and Sharp Radiation: pelvis Exacerbating factors: none Vaginal discharge: none Vaginal bleeding: light Patient : Yes OB History - Previous Pregnancies: miscarriage and other (Rh factor per patient) care: none Associated symptoms: Reports no associated symptoms; Deny abdominal pain, headache(s), malaise, nausea or vomiting Review of Systems General: Reports: 10 or more systems reviewed and unremarkable except in HPI and below Const: Denies: fever(s), chills, fatigue or malaise Eyes: Denies: change in vision ENMT: Denies: odynophagia Card: Denies: chest pain or swelling of feet/ankles Resp: Denies: dyspnea, productive cough or non-productive cough GI: Denies: abdominal pain, nausea or vomiting : Denies: flank pain or difficulty voiding Musc: Denies: neck pain or back pain Skin/Breast: Denies: rash Neuro: Denies: headache(s), numbness in extremities or weakness in extremities Jimmy/Lymph: Denies: easy bruising or easy bleeding PFS ED PFSH: Medical History (Updated 04/07/20 @ 15:15 by Karoline De MD) Incomplete bladder emptying Interstitial cystitis Migraine headache Neurogenic bladder PCOS (polycystic ovarian syndrome) Recurrent UTI Family History Father CAD (coronary artery disease) Mother Pancreatitis Social History Smoking and tobacco status: former smoker Marital status: Current occupational status: employed History of recent travel: No Course ED course: Patient with a negative test. Ultrasound was unremarkable. Encouraged her to follow-up with an COMMUNITY CENTER WORKER we also discussed control. She was not having significant pain at the time of discharge nor bleeding. No procedures were done during this ED visit. Any that might be documented are in error and should be ignored. Vital Signs: Vital signs: Vital Signs Temperature 99.9 F H 04/07/20 12:04 Pulse Rate 87 04/07/20 15:46 Respiratory Rate 18 04/07/20 15:46 Blood Pressure 129/79 04/07/20 15:46 Pulse Oximetry 97 04/07/20 15:46 MDM - OB/Uterine Contractions Lab Data: Labs: Lab Results 04/07/20 04/07/20 04/07/20 Range/Units 13:39 13:39 13:39 WBC 10.1 H (4.0-10.0) 10^3/ uL RBC 5.02 (4.1-5.3) 10^6/u L Hgb 14.3 (11.5-15.3) g/dL Hct 43.0 (37.0-47.0) % MCV 85.7 (81-99) fL MCH 28.5 (28.0-34.0) pg MCHC 33.3 (30.0-36.0) g/dL RDW 13.2 (12.1-15.1) % Plt Count 416 H (130-400) 10^3/c mm MPV 9.3 (7.4-10.4) fL Neut % (Auto) 58.5 % Lymph % (Auto) 28.7 % [place] % (Auto) 9.3 % Eos % (Auto) 2.9 % Baso % (Auto) 0.3 % Neut # (Auto) 5.88 (1.8-7.7) 10^3/u L Lymph # (Auto) 2.9 (0.8-4.8) 10^3/u L [place] # (Auto) 0.9 (0.2-0.9) 10^3/u L Eos # (Auto) 0.3 (0.0-0.8) 10^3/u L Baso # (Auto) 0.0 (0.0-0.1) 10^3/u L Nucleated RBC % (a uto) 0 % Nucleated RBCs # 0.0 /100WBC Ser , [place] i-Qnt 0.50 mIU/mL Blood Type O Negative Rho(D) Type Negative Discharge Plan Discharge Patient Disposition: Home Clinical Impression: Dysmenorrhea Condition: Stable Prescriptions: No Action trazodone 100 mg tablet 100 mg PO BEDTIME RF: 0 B-complex with vitamin C Capsule 1 cap PO DAILY RF: 0 ibuprofen 800 mg tablet 800 mg PO TID RF: 0 venlafaxine 150 mg capsule,extended release 24hr 150 mg PO DAILY Qty: 30 RF: 4 mecobalamin (vitamin B12) 5,000 mcg lozenge 5,000 mcg PO DAILY RF: 0 ferrous sulfate 325 mg (65 mg iron) tablet 325 mg PO DAILY RF: 0 hydroxyzine HCl 50 mg tablet 200 mg PO DAILY RF: 0 cefdinir 300 mg capsule 300 mg PO Q12H PRN (Reason: bladder infection) RF: 0 baclofen 10 mg tablet 10 mg PO TID PRN (Reason: Muscle Spasm) RF: 0 metoclopramide HCl 10 mg tablet 10 mg PO DAILY PRN (Reason: headache nausea) RF: 0 magnesium oxide 400 mg magnesium Capsule 400 mg PO DAILY RF: 0 acetaminophen [Tylenol Extra Strength] 500 mg tablet 2,000 mg PO QID PRN (Reason: Pain) RF: 0 albuterol sulfate [Ventolin HFA] 90 mcg/actuation HFA aerosol inhaler 2 inh INHALATION QID PRN (Reason: shortness of breath or wheezing) Qty: 18 RF: 0 Discharge Orders: Discharge Order (Routine); Ordered 04/07/20 Ordered By: Karoline De Referrals: Sis Da Silva DO [Primary Care Provider] - Discharge Diet: Usual diet Discharge Activity: Resume usual activity Patient Instructions: Dysmenorrhea (ED) Activity Restrictions/Additional Instructions: Follow-up with an COMMUNITY CENTER WORKER of your choice. You could also follow-up with your primary care doctor. Please discuss your irregular periods with them to determine if there is any further evaluation or treatment that is needed. You may use ibuprofen or Tylenol for your pain. Return to the ER if worsening pain or any other new or concerning symptoms. Discharge Date/Time: 04/07/20 15:49 Coding Level of Care Code ED Technical Planner for Killian Cantu
--- NOTE | 2020-04-07 14:57 | US_ITS ---
WS: [id number] ULTRASOUND PELVIS TECHNIQUE: Transabdominal and transvaginal. ULTRASOUND PELVIS TECHNIQUE: Transabdominal. CLINICAL INFORMATION: pelvic pain LMP: : No. COMPARISON: None. FINDINGS: No evidence of intrauterine gestational sac or intrauterine . No evidence of ectop ic . Uterus Orientation: Anteverted. Size: 6.4 cm x 3.3 cm x 3.8 cm. Masses: None. Cervix: Normal Endometrium: Normal. Endometrium thickness: 7.6 mm. Adnexa: Normal. Right ovary size: 4.0 cm x 2.1 cm x 3.3 cm. Left ovary size: 2.3 cm x 2.3 cm x 3.2 cm. Free fluid: None. Other findings: None. US/US pelvic with transvaginal IMPRESSION: 1. No evidence of intrauterine or ectopic . 2. Normal ovaries bilaterally with multifollicular cysts. 3. Normal adnexa. 4. No free fluid in the cul-de-sac.
[2020-04-07 15:21] VITALS: BP 128/84; PULSE 84; RESP 18; O2SAT 97
[2020-04-07 15:46] VITALS: BP 129/79; PULSE 87; RESP 18; O2SAT 97
== END 2020-04-07 15:49 | disposition home or self-care (01) ==
PROVIDERS: Emergency Medicine; Emergency Provider Emergency Medicine; PCP Internal Medicine
DX: N94.6 Dysmenorrhea, unspecified (principal); Z87.891 Personal history of nicotine dependence
CPT/HCPCS: 12345; 76815; 76817; 76830; 76856; 84702; 85025; 86900; 99281; 99283

== ENCOUNTER → 2020-04-17 14:23 | Outpatient (BNVA) | payer OTHER, SELFPAY | PROVIDERS: PCP Internal Medicine; Visit Provider Nurse Practitioner Family | DX: Z20.828 Contact with and (suspected) exposure to other viral communicable diseases (principal) | CPT/HCPCS: 87635 ==

== ENCOUNTER 2020-04-23 00:38 | Emergency (ER) | payer SELFPAY ==
[2020-04-23] VITALS (8 sets, daily range): BP systolic 106–127; BP diastolic 71–86; PULSE 63–80; RESP 16–20; TEMP 36.3; O2SAT 96–98; BMI 40.7
--- NOTE | 2020-04-23 01:01 | ED_ITS ---
HPI - Abdominal Pain General: Chief Complaint: Abdominal Pain Stated Complaint: abdominal pain, vomiting Time Seen by Provider: 04/23/20 00:55 Source: patient Mode of arrival: ambulatory Limitations: no limitations History of Present Illness: HPI narrative: Rebecca is a nice 24-year-old female who comes in complaining of 5 to 6 hours of constant severe epigastric abdominal pain. The patient has had similar symptoms off and on recently but it is never lasted more than 30 minutes. She has associated nausea but no vomiting. The pain radiates up to her right shoulder. She describes the pain as a pressure with occasional sharp pains and a burning pain. Patient does not report any change in her stools such as diarrhea or constipation. Patient has tried numerous gas and antacid medications at home without any relief. Patient states she is also had similar symptoms in the past and it was evaluated and told that she would need to have her gallbladder looked at. Patient comes in tonight because she is never had the pain last this long. She is denying any other complaints or concerns. Associated Symptoms: Reports nausea; Denies chills, coffee ground emesis, constipation, GI cramping, diarrhea, dysuria, fever(s), hematochezia, hematuria, hematemesis, melena, syncope and vomiting Related Data: Date of Last Menstrual Period: 04/09/20 Review of Systems Const: Denies: fever(s), chills, body aches, fatigue, malaise or diaphoresis Eyes: Denies: change in vision, blurry vision, photophobia, eye discomfort, eye discharge, eye redness or yellow eyes ENMT: Denies: throat pain, odynophagia, hoarseness, swelling of lips/tongue, ear or mastoid pain, ear discharge, change in hearing or nasal discharge Card: Denies: chest pain, palpitations, irregular heart rhythm, edema, lightheadedness, syncope, pre-syncope, dyspnea on exertion or orthopnea Resp: Denies: dyspnea, productive cough, non-productive cough, wheezing, hemoptysis or chest congestion GI: Reports: abdominal pain and nausea; Denies: vomiting, hematemesis, coffee ground emesis, diarrhea, constipation, GI cramping, hematochezia or melena : Denies: flank pain, dysuria, urinary frequency, urinary urgency or he maturia Musc: Denies: neck pain, back pain, extremity pain, extremity swelling, joint pain, joint swelling, joint redness, joint warmth or joint stiffness Skin/Breast: Denies: rash, pruritus, erythema, skin pain or skin tenderness Neuro: Denies: headache(s), numbness in extremities, weakness in extremities, sensory changes, lack of coordination, difficulty walking, dizziness, vertigo, confusion, Slurred speech present or seizure-like activity Jimmy/Lymph: Denies: easy bruising, easy bleeding, petechiae, purpura or enlarged lymph nodes All/Imm: Denies: urticaria, throat swelling, tongue swelling, facial swelling or acute wheezing PFSH ED PFSH: Medical History (Updated 04/23/20 @ 02:22 by Lolis Whitley) Incomplete bladder emptying Interstitial cystitis Migraine headache Neurogenic bladder PCOS (polycystic ovarian syndrome) Recurrent UTI Family History Father CAD (coronary artery disease) Mother Pancreatitis Social History Smoking and tobacco status: former smoker Marital status: Current occupational status: employed History of recent travel: No Female Reproductive History: Date of last menstrual period: 04/09/20 Physical Exam Const: COMMON NORMALS: no acute distress, patient oriented x3, no limitations and alert GENERAL APPEARANCE: cooperative HENMT: COMMON NORMALS: normocephalic, atraumatic, external ears normal, EAC's normal and Normal external nose present HEAD & SCALP: normal to inspection, normocephalic and atraumatic FACE & SINUS: normal facial exam and face symmetric NOSE: Normal external nose present and Normal nares present EXTERNAL EAR: Yes external ears normal EXTERNAL AUDITORY CANAL: EAC's normal MOUTH: Normal oral and palatal mucosa present, lip normal and tongue normal Eye: COMMON NORMALS: Equal, round and reactive pupils present and conjunctivae normal GENERAL EYE: appearance normal, both eyes and all related structures ALIGNMENT: Yes alignment normal PERIORBITAL: periorbital findings normal EYELID: eyelids normal CONJUNCTIVA: Yes conjunctivae normal SCLERA: sclerae normal PUPIL: Yes Equal, round and reactive pupils present Neck/C-Spine: COMMON NORMALS: full ROM, no lymphadenopathy, supple, no meningeal signs and no JVD GENERAL: Yes normal visual inspection and Yes trachea midline Chest: COMMONS NORMALS: normal inspection of the chest and normal palpation of entire chest wall Resp: COMMON NORMALS: normal respiratory effort, No retractions, No use of accessory muscles and clear to auscultation bilaterally EFFORT & INSPECTION: Yes able to speak in complete sentences and Yes symmetric chest movement AUSCULTATION: clear to auscultation bilaterally, no crackles, no rales, no rhonchi and no wheezes Cardio: COMMON NORMALS: no JVD, regular rate, regular rhythm, S1 normal heart sound present and S2 normal heart sound present RATE: regular rate RHYTHM: regular rhythm HEART SOUNDS: S1 normal heart sound present, S2 normal heart sound present, no click, no gallops, no murmurs and no rubs GI: COMMON NORMALS: Soft to palpation and No hepatosplenomegaly present PALPATION: Yes Soft to palpation, Yes Tenderness to palpation present (GI) (Moderate in the epigastric area. No rebound or guarding.), No Guarding due to palpation present (GI), No Rigid due to palpation, Yes No hepatosplenomegaly present, No Hernia present, No Palpable mass present and No Pulsatile mass present : COMMON NORMALS: Yes no CVA tenderness BLADDER/KIDNEY EXAM: Yes no CVA tenderness EXTERNAL FEMALE EXAM: No Hernia present Back/Pelvis: COMMON NORMALS: no CVA tenderness, thoracic and lumbar spine no rmal to inspection, no thoracic nor lumbar tenderness and thoraco-lumbar ROM normal Extremity: COMMON NORMALS: normal to inspection, full ROM, capillary refill normal, no joint enlargement, no clubbing, cyanosis or edema and no calf tenderness Neuro: COMMON NORMALS: patient oriented x3, CN's II-XII intact bilaterally, moves all extremities, no focal motor deficits and no sensory deficits noted SENSORIUM/ORIENTATION: Yes alert MENINGEAL SIGNS: Yes no meningeal signs SPEECH: speech normal Psych: COMMON NORMALS: mental status grossly normal, Normal thought process present, cooperative, normal affect, speech normal and activity/motor behavior normal SPEECH: Yes normal speech THOUGHT PROCESS: Normal thought process present Skin: COMMON NORMALS: no rashes or lesions noted, turgor normal, no jaundice, no petechiae and no mottling GENERAL SKIN EXAM: no rashes or lesions noted and turgor normal Course 2 Vital Signs: Vital signs: Vital Signs Temperature 97.3 F L 04/23/20 00:43 Pulse Rate 73 04/23/20 02:30 Respiratory Rate 18 04/23/20 02:38 Blood Pressure 123/76 04/23/20 02:30 Pulse Oximetry 97 04/23/20 02:38 MDM - Abdominal Pain MDM Narrative: Medical decision making narrative: Rebecca is a very nice 24-year-old female who comes in complaining of right upper quadrant abdominal pain. Pain is similar to many episodes in the past only tonight was more severe. Patient has had complete relief with 1 dose of 0.5 mg of Dilaudid and now she is having mild pain so I will give her 1 more dose. Patient's nausea is controlled now. Ultrasound does not reveal acute cholecystitis but it is possible she had the stone stuck in the neck of the gallbladder causing pain. Patient has normal labs with no significant elevation to her white count and no left shift. She is afebrile. Her liver enzymes and lipase are normal. Patient wants to follow-up with the surgeon as an outpatient. I will give her the information for Dr. Tineo. At this time the patient appears much improved and more than safe for discharge. I did review with her at length the signs and symptoms and reasons for her to return to the hospital and she verbalized her understanding. She will follow-up with Dr. Tineo or return here if needed. Differential Diagnosis: Differential diagnosis abdominal pain: Likely abdominal pain, acute appendicitis, calculus of kidney, constipation, diverticulitis, gastroenteritis, pancreatitis and small bowel obstruction Medical Records: Attestation: I reviewed the patient's medical records. Lab Data: Attestation: I reviewed the patient's lab results. Labs: Lab Results 04/23/20 04/23/20 04/23/20 Range/Units 01:10 01:10 01:10 WBC 11.6 H (4.0-10.0) 10^3/ uL RBC 4.92 (4.1-5.3) 10^6/u L Hgb 13.9 (11.5-15.3) g/dL Hct 42.2 (37.0-47.0) % MCV 85.8 (81-99) fL MCH 28.3 (28.0-34.0) pg MCHC 32.9 (30.0-36.0) g/dL RDW 13.5 (12.1-15.1) % Plt Count 368 (130-400) 10^3/c mm MPV 9.4 (7.4-10.4) fL Neut % (Auto) 62.3 % Lymph % (Auto) 25.9 % [place] % (Auto) 8.3 % Eos % (Auto) 2.8 % Baso % (Auto) 0.4 % Neut # (Auto) 7.21 (1.8-7.7) 10^3/u L Lymph # (Auto) 3.0 (0.8-4.8) 10^3/u L [place] # (Auto) 1.0 H (0.2-0.9) 10^3/u L Eos # (Auto) 0.3 (0.0-0.8) 10^3/u L Baso # (Auto) 0.1 (0.0-0.1) 10^3/u L Nucleated RBC % (a uto) 0 % Nucleated RBCs # 0.0 /100WBC Sodium 138 (136-145) mmol/L Potassium 4.3 (3.5-5.1) mmol/L Chloride 104 (98-107) mmol/L Carbon Dioxide 23 (22-29) mmol/L Anion Gap 15.3 (5-19) BUN 5 L (6-20) mg/dL Creatinine 0.7 (0.5-0.9) mg/dL GFR Calculation 101.1 (90-130) mL/min Glucose 115 (65-115) mg/dL Calculated Osmolal ity 284 L (285-295) mOsm/k g Calcium 9.0 (8.5-10.5) mg/dL Total Bilirubin 0.2 (0.15-1.2) mg/dL AST 16 (0-32) U/L ALT 17 (0-33) U/L Alkaline Phosphata se 84 (35-105) IU/L Total Protein 6.3 L (6.6-8.7) g/dL Albumin 4.2 (3.5-5.2) g/dL Globulin 2.1 (1.3-4.6) g/dL Lipase 17 (13-60) U/L HCG, Qual (Negative) Urine Color (Yellow) Urine Appearance (CLEAR) Urine pH (5-7) Ur Specific Gravit y (1.005-1.030) Urine Protein (Negative) Urine Glucose (UA) (Normal) Urine Ketones (Negative) Urine Blood (Negative) Urine Nitrate (Negative) Urine Bilirubin (Negative) Urine Urobilinogen (Negative) mg/dL Ur Leukocyte Debbie ase (Negative) Urine RBC (0-2) /hpf Urine WBC (0-5) /hpf Ur Squamous Epith Cells (0-5) /hpf Amorphous Sediment Urine Bacteria (NONE) /hpf Urine Mucus /hpf H. pylori IgG Anti body Negative (Negative) 04/23/20 04/23/20 Range/Units 01:10 02:00 WBC (4.0-10.0) 10^3/ uL RBC (4.1-5.3) 10^6/u L Hgb (11.5-15.3) g/dL Hct (37.0-47.0) % MCV (81-99) fL MCH (28.0-34.0) pg MCHC (30.0-36.0) g/dL RDW (12.1-15.1) % Plt Count (130-400) 10^3/c mm MPV (7.4-10.4) fL Neut % (Auto) % Lymph % (Auto) % [place] % (Auto) % Eos % (Auto) % Baso % (Auto) % Neut # (Auto) (1.8-7.7) 10^3/u L Lymph # (Auto) (0.8-4.8) 10^3/u L [place] # (Auto) (0.2-0.9) 10^3/u L Eos # (Auto) (0.0-0.8) 10^3/u L Baso # (Auto) (0.0-0.1) 10^3/u L Nucleated RBC % (a uto) % Nucleated RBCs # /100WBC Sodium (136-145) mmol/L Potassium (3.5-5.1) mmol/L Chloride (98-107) mmol/L Carbon Dioxide (22-29) mmol/L Anion Gap (5-19) BUN (6-20) mg/dL Creatinine (0.5-0.9) mg/dL GFR Calculation (90-130) mL/min Glucose (65-115) mg/dL Calculated Osmolal ity (285-295) mOsm/k g Calcium (8.5-10.5) mg/dL Total Bilirubin (0.15-1.2) mg/dL AST (0-32) U/L ALT (0-33) U/L Alkaline Phosphata se (35-105) IU/L Total Protein (6.6-8.7) g/dL Albumin (3.5-5.2) g/dL Globulin (1.3-4.6) g/dL Lipase (13-60) U/L HCG, Qual Negative (Negative) Urine Color Yellow (Yellow) Urine Appearance Cloudy A (CLEAR) Urine pH 5.0 (5-7) Ur Specific Gravit y 1.020 (1.005-1.030) Urine Protein Neg (Negative) Urine Glucose (UA) Norm (Normal) Urine Ketones Negative (Negative) Urine Blood 2+ H (Negative) Urine Nitrate Negative (Negative) Urine Bilirubin Neg (Negative) Urine Urobilinogen Norm (Negative) mg/dL Ur Leukocyte Debbie ase 2+ H (Negative) Urine RBC 5-10 H (0-2) /hpf Urine WBC 15-25 H (0-5) /hpf Ur Squamous Epith Cells 10-15 H (0-5) /hpf Amorphous Sediment Not Reportable Urine Bacteria 2+ H (NONE) /hpf Urine Mucus 2+ /hpf H. pylori IgG Anti body (Negative) Imaging Data ^: US: My impression: Ultrasound gallbladder, tech interpretation -gallstone present in the fundus. No wall thickening. Normal common bile duct. No pericholecystic fluid seen. Pancreas normal. Kidneys normal. No other acute findings. Discharge Plan Discharge Patient Disposition: Home Clinical Impression: Recurrent biliary colic Condition: Stable Prescriptions: [place] 5-325 mg tablet 1 tab PO Q6H PRN (Reason: pain) 5 Days Qty: 10 RF: 0 Zofran 4 mg tablet 4 mg PO Q6H PRN (Reason: nausea and vomiting) Qty: 20 RF: 0 Flagyl 500 mg tablet 500 mg PO TID 10 Days Qty: 30 RF: 0 Cipro 500 mg tablet 500 mg PO BID Qty: 20 RF: 0 No Action trazodone 100 mg tablet 100 mg PO BEDTIME RF: 0 B-complex with vitamin C Capsule 1 cap PO DAILY RF: 0 ibuprofen 800 mg tablet 800 mg PO TID RF: 0 venlafaxine 150 mg capsule,extended release 24hr 150 mg PO DAILY Qty: 30 RF: 4 mecobalamin (vitamin B12) 5,000 mcg lozenge 5,000 mcg PO DAILY RF: 0 ferrous sulfate 325 mg (65 mg iron) tablet 325 mg PO DAILY RF: 0 hydroxyzine HCl 50 mg tablet 200 mg PO DAILY RF: 0 baclofen 10 mg tablet 10 mg PO TID PRN (Reason: Muscle Spasm) RF: 0 metoclopramide HCl 10 mg tablet 10 mg PO DAILY PRN (Reason: headache nausea) RF: 0 magnesium oxide 400 mg magnesium Capsule 400 mg PO DAILY RF: 0 acetaminophen [Tylenol Extra Strength] 500 mg tablet 2,000 mg PO QID PRN (Reason: Pain) RF: 0 albuterol sulfate [Ventolin HFA] 90 mcg/actuation HFA aerosol inhaler 2 inh INHALATION QID PRN (Reason: shortness of breath or wheezing) Qty: 18 RF: 0 Discharge Orders: Discharge Order (Routine); Ordered 04/23/20 Ordered By: Lolis Whitley Referrals: Sis Da Silva DO [Primary Care Provider] - 1-3 days Fran Tineo MD [Physician] - 1-3 days Discharge Diet: Advance as tolerated and Clear Liquid Discharge Activity: Increase activity as tolerated Patient Instructions: Biliary Colic (ED), Abdominal Pain (ED) Activity Restrictions/Additional Instructions: Please return to the ER immediately for any of the signs or symptoms listed on your discharge instruction sheets, worsening/changing of your symptoms, you are not getting better as quickly as expected, or for ANY other cause or concerns. If your pain is not controlled with the medicines I have prescribed you, you develop a fever, began to vomit and cannot keep down your medications, or have any other concerns please return to the ER immediately for recheck. 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
--- NOTE | 2020-04-23 01:13 | US_ITS ---
WS: [id number] RIGHT UPPER QUADRANT ULTRASOUND HISTORY: Pain COMPARISON: None available. Liver: 15.7 cm in length. Normal size liver. No bile duct dilatation or mass. Gallbladder: Normally distended gallbladder with stones. No pericholecystic fluid or gallbladder wall thickening. CBD: 0.4 cm Pancreas: Normal size and echogenicity. Right kidney: 8.8 cm in length. Normal size and echogenicity. No hydronephrosis or mass. Aorta and IVC: Unremarkable abdominal aorta and IVC. No ascites. US/US gall bladder [id number] IMPRESSION: Cholelithiasis without evidence for acute cholecystitis.
[2020-04-23 01:16] LABS: Basophils # 0.1 10^3/uL (0.0-0.1); Basophils % 0.4 %; Eosinophils # 0.3 10^3/uL (0.0-0.8); Eosinophils % 2.8 %; Hematocrit 42.2 % (37.0-47.0); Hemoglobin 13.9 g/dL (11.5-15.3); Lymphocytes % 25.9 %; Mean Corpuscular HGB Conc 32.9 g/dL (30.0-36.0); Mean Corpuscular Hemoglobin 28.3 pg (28.0-34.0); Mean Corpuscular Volume 85.8 fL (81-99); Mean Platelet Volume 9.4 fL (7.4-10.4); Monocytes % 8.3 %; Neutrophils # 7.21 10^3/uL (1.8-7.7); Neutrophils % 62.3 %; Nucleated Red Blood Cells % 0 %; Platelet Count 368 10^3/cmm (130-400); Red Blood Count 4.92 10^6/uL (4.1-5.3); Red Cell Distribution Width 13.5 % (12.1-15.1); White Blood Count 11.6 10^3/uL (4.0-10.0)
[2020-04-23] MEDS: sodium chloride 0.9% 1,000 ML 100 ML IV (01:20)
[2020-04-23] MEDS: ondansetron 2 mg/ML SDV 2 mL 4 MG IVP ×2 (01:22→02:38)
[2020-04-23] MEDS: HYDROmorphone 1 mg/mL INJ 1 mL 0.5 MG IVP ×2 (01:25→02:38)
[2020-04-23 01:30] LABS: H. Pylori IgG Antibody Negative (Negative); HCG, Serum Qual Negative (Negative)
--- NOTE | 2020-04-23 01:31 | PC.NURSE ---
Pt stated she just voided at midnight. Pt stated she has to st cath self as needed. Unable to st cath self now because I just went per pt. Notified provider. Provider okay pt st cath self.
[2020-04-23 01:39] LABS: Alanine Aminotransferase 17 U/L (0-33); Albumin Level 4.2 g/dL (3.5-5.2); Alkaline Phosphatase 84 IU/L (35-105); Anion Gap 15.3 (5-19); Aspartate Amino Transferase 16 U/L (0-32); Blood Urea Nitrogen 5 mg/dL (6-20); Carbon Dioxide 23 mmol/L (22-29); Chloride 104 mmol/L (98-107); Globulin 2.1 g/dL (1.3-4.6); Glomerular Filtration Rate 101.1 mL/min (90-130); Glucose 115 mg/dL (65-115); Lipase 17 U/L (13-60); Osmolality Calculated 284 mOsm/kg (285-295); Potassium 4.3 mmol/L (3.5-5.1); Sodium 138 mmol/L (136-145); Total Bilirubin 0.2 mg/dL (0.15-1.2); Total Protein 6.3 g/dL (6.6-8.7)
[2020-04-23 02:41] LABS: Bilirubin Urine Neg (Negative); Blood Urine 2+ (Negative); Glucose Urine UA Norm (Normal); Ketones Urine Negative (Negative); Leukocyte Esterase Urine 2+ (Negative); Nitrate Urine Negative (Negative); Protein Urine Neg (Negative); Urine Appearance Cloudy (CLEAR); Urine Color Yellow (Yellow); Urobilinogen Urine Norm (Negative); WBC Urine 15-25 /hpf (0-5)
--- NOTE | 2020-04-23 02:41 | PC.NURSE ---
ultrasound at bedside
[2020-04-23 02:42] LABS: Add Urine Culture? No; Bacteria Urine 2+ /hpf; Mucus Urine 2+ /hpf
[2020-04-23] MEDS: ciprofloxacin 500 mg Tablet PO (02:52)
[2020-04-23] MEDS: metroNIDAZOLE 500 MG Tablet PO (02:52)
== END 2020-04-23 02:54 | disposition home or self-care (01) ==
PROVIDERS: Emergency Provider Emergency Medicine; PCP Internal Medicine
DX: K80.50 Calculus of bile duct without cholangitis or cholecystitis without obstruction (principal); Z87.891 Personal history of nicotine dependence
CPT/HCPCS: 12345; 76705; 80053; 81001; 83690; 84703; 85025; 86677; 96361; 96374; 96375; 96376; 99283; J1170; J2405; J7030

== ENCOUNTER 2020-04-24 07:58 | Day surgery (SDC) | payer SELFPAY ==
[2020-04-24] VITALS (12 sets, daily range): BP systolic 113–138; BP diastolic 67–91; PULSE 82–107; RESP 12–18; TEMP 36.2–36.6; O2SAT 94–100; BMI 40.7
--- NOTE | 2020-04-24 08:01 | USR_ITS ---
PROCEDURE INFORMATION: Exam: US Abdomen, Limited; Right Upper Quadrant Exam date and time: 04/24/2020 8:09 AM Age: 24 years old Clinical indication: Abdominal pain; Additional info: Ruq pain TECHNIQUE: Imaging protocol: US abdomen. Real time ultrasound with image documentation. Limited exam focused on the right upper quadrant. COMPARISON: US gall bladder [id number] 04/23/2020 2:03 AM FINDINGS: Liver: Increased echogenicity indicating fatty liver. No masses. Gallbladder: The gallbladder is partially contracted. There is a 1.1 cm stone within the gallbladder. The gallbladder wall is at the upper limit of normal at 3 mm. No pericholecystic fluid is seen. There is a positive Welsh sign. Common bile duct: Normal. No stones. No dilation. Pancreas: Could not be evaluated due to overlying gas.. Right kidney: Normal. No mass. No hydronephrosis. US/US gall bladder [id number] IMPRESSION: 1. Cholelithiasis with mildly prominent gallbladder wall and positive Welsh sign suggesting cholecystitis. 2. Fatty liver.
[2020-04-24] MEDS: ondansetron 2 mg/ML SDV 2 mL 4 MG IVP ×2 (08:33→12:32)
[2020-04-24] MEDS: famotidine 20 mg/2 mL INJ 40 MG IVP (08:34)
--- NOTE | 2020-04-24 08:43 | ED_ITS ---
HPI - Abdominal Pain General: Chief Complaint: Abdominal Pain Stated Complaint: Gallbladder related issues Time Seen by Provider: 04/24/20 08:00 Source: patient Mode of arrival: ambulatory Limitations: no limitations History of Present Illness: HPI narrative: 24-year-old female patient presents to the emergency department with right upper quadrant/epigastric pain. She reports several month history of similar symptoms but is progressively worsening. She reports continued nausea vomiting despite use of Zofran, Reglan and stomach relief medication (oTC), reports took hydrocodone for pain, did not help. She reports last ate crackers and water at 9 PM yesterday. Last bowel movement, loose, yesterday. Denies diarrhea. Denies fever or chills. She is complaining of weakness. Right upper quadrant ultrasound completed yesterday, cholelithiasis noted without cholecystitis. Common bile duct diameter 0.4 cm. MD elicited complaint: abdominal pain and flank pain (rt) Pertinent past history: diverticulitis (Anette's diverticulitis with ileocecal procedure, age 15; appendectomy age 6) Onset (ago): month(s) Pain Consistency: intermittent Location: Epigastric and RUQ Severity: moderate Quality: cramping, aching and dull Radiation: RUQ, RLQ and R flank Migration to: other (Periumbilical) Exacerbating factors: eating and other (Lying flat) Relieving factors: rest Associated Symptoms: Reports bloating, dyspepsia, heartburn, nausea and vomiting; Denies chills, dysuria, fever(s) and hematemesis Treatments prior to arrival: prescription analgesics and other (Zofran) Related Data: Date of Last Menstrual Period: 04/09/20 Review of Systems General: Reports: 10 or more systems reviewed and unremarkable except in HPI and below Const: Denies: fever(s), chills or diaphoresis Eyes: Denies: blurry vision or eye redness ENMT: Denies: throat pain, dental pain or disequilibrium Card: Denies: chest pain, palpitations or irregular heart rhythm Resp: Denies: dyspnea, productive cough, non-productive cough or wheezing GI: Reports: abdominal pain, nausea, vomiting, heartburn and bloating; Denies: hematemesis or dysphagia : Denies: difficulty voiding or dysuria Musc: Reports: muscle weakness; Denies: neck pain, back pain or joint warmth Skin/Breast: Denies: rash or pruritus Neuro: Denies: headache(s), weakness in extremities or behavioral changes Psych: Reports: anxiety and change in appetite; Denies: depression Jimmy/Lymph: Denies: easy bruising PFSH ED PFSH: Medical History Incomplete bladder emptying Interstitial cystitis Migraine headache Neurogenic bladder PCOS (polycystic ovarian syndrome) Recurrent UTI Seizures Patient still being worked up; was told she might have MS, but another neurologist disagreed Surgical History History of appendectomy History of dental surgery S/P colon resection Ileocecal resection secondary to the presence of a Meckel's diverticulum Family History Father CAD (coronary artery disease) Mother Pancreatitis Social History (Updated 04/24/20 @ 11:03 by Fran Tineo MD) Smoking and tobacco status: current every day smoker cigarettes Packs smoked per day: 0.75 Years cigarettes smoked: 5 Marital status: Current occupational status: employed 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 History of recent travel: No Female Reproductive History: Date of last menstrual period: 04/09/20 Physical Exam Const: COMMON NORMALS: no acute distress, patient oriented x3, healthy appearing and alert GENERAL APPEARANCE: cooperative, comfortable and well hydrated HENMT: COMMON NORMALS: normocephalic, Normal external nose present and moist oral mucous membranes HEAD & SCALP: normocephalic NOSE: Normal external nose present Eye: COMMON NORMALS: Equal, round and reactive pupils present and EOMs intact bilaterally GENERAL EYE: appearance normal, both eyes and all related structures PUPIL: Yes Equal, round and reactive pupils present Neck/C-Spine: COMMON NORMALS: full ROM and no lymphadenopathy GENERAL: Yes normal visual inspection and Yes trachea midline CERVICAL SPINE: Yes cervical ROM normal Lymph: LYMPHATIC: no lymphadenopathy noted Chest: COMMONS NORMALS: normal inspection of the chest Resp: COMMON NORMALS: normal respiratory effort and clear to auscultation bilaterally EFFORT & INSPECTION: Yes able to speak in complete sentences AUSCULTATION: clear to auscultation bilaterally Cardio: COMMON NORMALS: regular rhythm, S1 normal heart sound present, S2 normal heart sound present and Peripheral pulses 2+ throughout RHYTHM: regular rhythm HEART SOUNDS: S1 normal heart sound present and S2 normal heart sound present PERIPHERAL PULSES: Peripheral pulses 2+ throughout GI: COMMON NORMALS: Soft to palpation INSPECTION: Yes normal to inspection, No abdominal wall ecchymosis, No abdominal distension, No incision, Yes central obesity, Yes scar and Yes other (Positive Welsh's) AUSCULTATION: Yes normoactive bowel sounds PALPATION: Yes Soft to palpation, Yes Tenderness to palpation present (GI) Details: RUQ, No Hernia present and No Palpable mass present : COMMON NORMALS: Yes no CVA tenderness BLADDER/KIDNEY EXAM: Yes no CVA tenderness EXTERNAL FEMALE EXAM: No Hernia present Back/Pelvis: COMMON NORMALS: no CVA tenderness and thoracic and lumbar spine normal to inspection Extremity: COMMON NORMALS: normal to inspection and capillary refill normal Neuro: COMMON NORMALS: patient oriented x3 and no focal motor deficits SENSORIUM/ORIENTATION: Yes alert Psych: COMMON NORMALS: mental status grossly normal, Normal thought process present and cooperative ACTIVITY/MOTOR BEHAVIOR: Yes appropriate eye contact THOUGHT PROCESS: Normal thought process present Skin: COMMON NORMALS: no rashes or lesions noted and turgor normal GENERAL SKIN EXAM: no rashes or lesions noted and turgor normal Course ED course: 24-year-old female patient presents to the emergency department with right upper quadrant pain. Gallbladder ultrasound revealed cholelithiasis with suggested cholecystitis. Serology results findings were, urinalysis revealed urinary tract infection which 1 g of Rocephin was administered here in the ED. Dr. Tineo was contacted via phone, agreed to see patient in the ED. Pain controlled with Dilaudid, nausea resolved with use of Zofran. Vital Signs: Vital signs: Vital Signs Temperature 97.1 F L 04/24/20 08:38 Pulse Rate 89 04/24/20 11:09 Respiratory Rate 18 04/24/20 11:09 Blood Pressure 131/74 04/24/20 11:09 Pulse Oximetry 98 04/24/20 11:09 MDM - Abdominal Pain Lab Data: Labs: Lab Results 04/24/20 04/24/20 04/24/20 Range/Units 08:30 09:12 09:12 WBC 8.7 (4.0-10.0) 10^3/ uL RBC 5.34 H (4.1-5.3) 10^6/u L Hgb 15.0 (11.5-15.3) g/dL Hct 47.2 H (37.0-47.0) % MCV 88.4 (81-99) fL MCH 28.1 (28.0-34.0) pg MCHC 31.8 (30.0-36.0) g/dL RDW 13.5 (12.1-15.1) % Plt Count 358 (130-400) 10^3/c mm MPV 9.3 (7.4-10.4) fL Neut % (Auto) 63.8 % Lymph % (Auto) 24.5 % Rains % (Auto) 7.3 % Eos % (Auto) 3.9 % Baso % (Auto) 0.2 % Neut # (Auto) 5.51 (1.8-7.7) 10^3/u L Lymph # (Auto) 2.1 (0.8-4.8) 10^3/u L Rains # (Auto) 0.6 (0.2-0.9) 10^3/u L Eos # (Auto) 0.3 (0.0-0.8) 10^3/u L Baso # (Auto) 0.0 (0.0-0.1) 10^3/u L Nucleated RBC % (a uto) 0 % Nucleated RBCs # 0.0 /100WBC Sodium 137 (136-145) mmol/L Potassium 4.3 (3.5-5.1) mmol/L Chloride 101 (98-107) mmol/L Carbon Dioxide 27 (22-29) mmol/L Anion Gap 13.3 (5-19) BUN 10 (6-20) mg/dL Creatinine 0.9 (0.5-0.9) mg/dL GFR Calculation 75.7 L (90-130) mL/min Glucose 102 (65-115) mg/dL Calculated Osmolal ity 283 L (285-295) mOsm/k g Calcium 9.0 (8.5-10.5) mg/dL Total Bilirubin 0.2 (0.15-1.2) mg/dL AST 16 (0-32) U/L ALT 16 (0-33) U/L Alkaline Phosphata se 95 (35-105) IU/L Total Protein 7.0 (6.6-8.7) g/dL Albumin 4.3 (3.5-5.2) g/dL Globulin 2.7 (1.3-4.6) g/dL Lipase 21 (13-60) U/L HCG, Qual (Negative) Urine Color Yellow (Yellow) Urine Appearance Hazy A (CLEAR) Urine pH 7 (5-7) Ur Specific Gravit y 1.010 (1.005-1.030) Urine Protein Neg (Negative) Urine Glucose (UA) Norm (Normal) Urine Ketones Negative (Negative) Urine Blood 2+ H (Negative) Urine Nitrate Negative (Negative) Urine Bilirubin Neg (Negative) Urine Urobilinogen Norm (Negative) mg/dL Ur Leukocyte Debbie ase 2+ H (Negative) Urine RBC 5-10 H (0-2) /hpf Urine WBC 10-15 H (0-5) /hpf Ur Squamous Epith Cells 25-40 H (0-5) /hpf Amorphous Sediment Not Reportable Urine Bacteria 2+ H (NONE) /hpf Urine Mucus 1+ /hpf 04/24/20 Range/Units 09:12 WBC (4.0-10.0) 10^3/ uL RBC (4.1-5.3) 10^6/u L Hgb (11.5-15.3) g/dL Hct (37.0-47.0) % MCV (81-99) fL MCH (28.0-34.0) pg MCHC (30.0-36.0) g/dL RDW (12.1-15.1) % Plt Count (130-400) 10^3/c mm MPV (7.4-10.4) fL Neut % (Auto) % Lymph % (Auto) % Rains % (Auto) % Eos % (Auto) % Baso % (Auto) % Neut # (Auto) (1.8-7.7) 10^3/u L Lymph # (Auto) (0.8-4.8) 10^3/u L Rains # (Auto) (0.2-0.9) 10^3/u L Eos # (Auto) (0.0-0.8) 10^3/u L Baso # (Auto) (0.0-0.1) 10^3/u L Nucleated RBC % (a uto) % Nucleated RBCs # /100WBC Sodium (136-145) mmol/L Potassium (3.5-5.1) mmol/L Chloride (98-107) mmol/L Carbon Dioxide (22-29) mmol/L Anion Gap (5-19) BUN (6-20) mg/dL Creatinine (0.5-0.9) mg/dL GFR Calculation (90-130) mL/min Glucose (65-115) mg/dL Calculated Osmolal ity (285-295) mOsm/k g Calcium (8.5-10.5) mg/dL Total Bilirubin (0.15-1.2) mg/dL AST (0-32) U/L ALT (0-33) U/L Alkaline Phosphata se (35-105) IU/L Total Protein (6.6-8.7) g/dL Albumin (3.5-5.2) g/dL Globulin (1.3-4.6) g/dL Lipase (13-60) U/L HCG, Qual Negative (Negative) Urine Color (Yellow) Urine Appearance (CLEAR) Urine pH (5-7) Ur Specific Gravit y (1.005-1.030) Urine Protein (Negative) Urine Glucose (UA) (Normal) Urine Ketones (Negative) Urine Blood (Negative) Urine Nitrate (Negative) Urine Bilirubin (Negative) Urine Urobilinogen (Negative) mg/dL Ur Leukocyte Debbie ase (Negative) Urine RBC (0-2) /hpf Urine WBC (0-5) /hpf Ur Squamous Epith Cells (0-5) /hpf Amorphous Sediment Urine Bacteria (NONE) /hpf Urine Mucus /hpf Imaging Data ^: US: Radiologist's impression: [address] [address] Ultrasound Report Signed Patient: Rebecca Aguilar Unit #: [id number] : 1995 Age/Sex: 24 / F ADM Date: 04/24/20 Loc: ER Room/Bed: Attending Dr: Ordering Provider/Ordering MD: Sosa Mata Date of Service: 04/24/20 Procedure(s): US gall bladder [id number] Accession Number(s): [id number] Report Number: [id number] PROCEDURE INFORMATION: Exam: US Abdomen, Limited; Right Upper Quadrant Exam date and time: 04/24/2020 8:09 AM Age: 24 years old Clinical indication: Abdominal pain; Additional info: Ruq pain TECHNIQUE: Imaging protocol: US abdomen. Real time ultrasound with image documentation. Limited exam focused on the right upper quadrant. COMPARISON: US gall bladder [id number] 04/23/2020 2:03 AM FINDINGS: Liver: Increased echogenicity indicating fatty liver. No masses. Gallbladder: The gallbladder is partially contracted. There is a 1.1 cm stone within the gallbladder. The gallbladder wall is at the upper limit of normal at 3 mm. No pericholecystic fluid is seen. There is a positive Welsh sign. Common bile duct: Normal. No stones. No dilation. Pancreas: Could not be evaluated due to overlying gas.. Right kidney: Normal. No mass. No hydronephrosis. US/US gall bladder [id number] IMPRESSION: 1. Cholelithiasis with mildly prominent gallbladder wall and positive Welsh sign suggesting cholecystitis. 2. Fatty liver. Dictated By: Juan Cantrell Signed By: Juan Cantrell Signed Date/Time: 04/24/20 0850 Discharge Plan Discharge Patient Disposition: Admitted As Inpatient Clinical Impression: Acute cholecystitis due to biliary calculus Condition: Stable Coding Level of Care Code ED Stencil Inspector for Killian Fwd Exam Comprehensive
[2020-04-24 09:26] LABS: Basophils % 0.2 %; Eosinophils # 0.3 10^3/uL (0.0-0.8); Eosinophils % 3.9 %; Hematocrit 47.2 % (37.0-47.0); Lymphocytes # 2.1 10^3/uL (0.8-4.8); Lymphocytes % 24.5 %; Mean Corpuscular HGB Conc 31.8 g/dL (30.0-36.0); Mean Corpuscular Hemoglobin 28.1 pg (28.0-34.0); Mean Corpuscular Volume 88.4 fL (81-99); Mean Platelet Volume 9.3 fL (7.4-10.4); Monocytes # 0.6 10^3/uL (0.2-0.9); Monocytes % 7.3 %; Neutrophils # 5.51 10^3/uL (1.8-7.7); Neutrophils % 63.8 %; Nucleated Red Blood Cells % 0 %; Platelet Count 358 10^3/cmm (130-400); Red Blood Count 5.34 10^6/uL (4.1-5.3); Red Cell Distribution Width 13.5 % (12.1-15.1); White Blood Count 8.7 10^3/uL (4.0-10.0)
[2020-04-24] MEDS: sodium chloride 0.9% 1,000 ML 999 ML IV (09:33)
[2020-04-24 09:45] LABS: HCG, Serum Qual Negative (Negative)
[2020-04-24 09:48] LABS: Alanine Aminotransferase 16 U/L (0-33); Albumin Level 4.3 g/dL (3.5-5.2); Alkaline Phosphatase 95 IU/L (35-105); Anion Gap 13.3 (5-19); Aspartate Amino Transferase 16 U/L (0-32); Blood Urea Nitrogen 10 mg/dL (6-20); Carbon Dioxide 27 mmol/L (22-29); Chloride 101 mmol/L (98-107); Globulin 2.7 g/dL (1.3-4.6); Glomerular Filtration Rate 75.7 mL/min (90-130); Glucose 102 mg/dL (65-115); Lipase 21 U/L (13-60); Osmolality Calculated 283 mOsm/kg (285-295); Potassium 4.3 mmol/L (3.5-5.1); Sodium 137 mmol/L (136-145); Total Bilirubin 0.2 mg/dL (0.15-1.2)
[2020-04-24 10:10] LABS: Urine Appearance Hazy (CLEAR); Urine Color Yellow (Yellow)
[2020-04-24 10:11] LABS: Add Urine Microscopic? YES; Bilirubin Urine Neg (Negative); Blood Urine 2+ (Negative); Glucose Urine UA Norm (Normal); Ketones Urine Negative (Negative); Leukocyte Esterase Urine 2+ (Negative); Nitrate Urine Negative (Negative); Protein Urine Neg (Negative); Urobilinogen Urine Norm (Negative); pH Urine 7 (5-7)
[2020-04-24 10:16] LABS: Add Urine Culture? No; Bacteria Urine 2+ /hpf; Mucus Urine 1+ /hpf; Squamous Epithelial Cell Urine 25-40 /hpf (0-5)
--- NOTE | 2020-04-24 10:51 | P.HP_ITS ---
Providers/Chief Complaint Admitting Physician: General Surgery Fran Tineo MD Primary Care Provider: Sis Da Silva DO Chief Complaint: Gallbladder related issues History of Present Illness Rebecca Aguilar is a 24 year old female who says that she has been having episodes of right upper quadrant abdominal pain for perhaps 6 months. She says it has gotten particularly bad over the past several weeks. She says pretty much everything she eats now results in her having epigastric and right upper quadrant pain that sometimes goes around her side partially. She also notices it goes up into her chest at times. She feels gassy and bloated and belchy. She has had multiple episodes of vomiting without any evidence of hematemesis. She came into the emergency room yesterday and was found to have cholelithiasis but no other obvious signs of acute cholecystitis despite the fact that her white blood cell count may have been mildly elevated. She continued to have discomfort overnight and so she returned to the emergency room today. LFTs are still within normal limits. Her ultrasound revealed cholelithiasis with a prominent gallbladder wall and positive sonographic Welsh's sign. Review of Systems General: Reports: 10 or more systems reviewed and unremarkable except in HPI and below Const: Denies: fever(s) Card: Reports: chest pain (Radiating from right upper quadrant) GI: Reports: abdominal pain, nausea, vomiting and change in bowel habits ( Going a little bit more often than normal ); Denies: hematemesis Medications/Allergies Home Medications Medication Instructions Recorded Confirmed Last Taken Type baclofen 10 mg PO TID PRN 09/28/19 04/17/20 04/07/20 History magnesium oxide 400 mg PO DAILY 09/28/19 04/17/20 04/07/20 History metoclopramide HCl 10 mg PO DAILY PRN 09/28/19 04/17/20 04/07/20 History ferrous sulfate 325 mg (65 mg 325 mg PO DAILY 10/24/19 04/17/20 04/07/20 History iron) tablet mecobalamin (vitamin B12) 5,000 5,000 mcg PO DAILY 10/24/19 04/17/20 04/07/20 History mcg lozenge B-complex with vitamin C 1 cap PO DAILY 12/09/19 04/17/20 04/07/20 History acetaminophen 500 mg tablet 2,000 mg PO QID PRN tab 12/09/19 04/17/20 04/07/20 History ibuprofen 800 mg tablet 800 mg PO TID 12/09/19 04/17/20 04/07/20 History trazodone 100 mg tablet 100 mg PO BEDTIME 12/09/19 04/17/20 04/06/20 History venlafaxine 150 mg 150 mg PO DAILY #30 cap 12/09/19 04/17/20 02/10/20 Rx capsule,extended release 24 hr albuterol sulfate [Ventolin HFA] 2 inh INHALATION QID PRN #18 gm 02/11/20 04/17/20 Unknown Rx hydroxyzine HCl 200 mg PO DAILY 04/07/20 04/17/20 04/07/20 History ciprofloxacin HCl [Cipro] 500 mg PO BID #20 tab 04/23/20 Unknown Rx hydrocodone-acetaminophen [[place]] 1 tab PO Q6H PRN 5 Days #10 tab 04/23/20 Unknown Rx metronidazole [Flagyl] 500 mg PO TID 10 Days #30 tab 04/23/20 Unknown Rx ondansetron HCl [Zofran] 4 mg PO Q6H PRN #20 tab 04/23/20 Unknown Rx Allergies Allergy/AdvReac Type Severity Reaction Status Date / Time latex Allergy Unknown Rash Verified 04/24/20 11:01 amitriptyline Allergy ADR-Agitate Verified 04/17/20 12:24 d amoxicillin Allergy ALGY-Hives Verified 04/17/20 12:24 medroxyprogesterone Allergy hives Verified 04/24/20 11:01 [From Provera] meperidine [From Demerol] Allergy Unknown I Verified 04/24/20 11:01 was a baby - morphine Allergy ADR/ALGY-Flushing/ blacked Verified 04/24/20 11:01 out prochlorperazine Allergy ADR-Irritab Verified 04/17/20 12:24 [From Compazine] le promethazine [From Phenergan] Allergy Twitching Verified 04/24/20 11:01 Sulfa (Sulfonamide Allergy Chest Verified 04/24/20 11:01 Antibiotics) heaviness, hard to breathe PFSH Acute PFSH: Medical History Incomplete bladder emptying Interstitial cystitis Migraine headache Neurogenic bladder PCOS (polycystic ovarian syndrome) Recurrent UTI Seizures Patient still being worked up; was told she might have MS, but another neurologist disagreed Surgical History History of appendectomy History of dental surgery S/P colon resection Ileocecal resection secondary to the presence of a Meckel's diverticulum Family History Father CAD (coronary artery disease) Mother Pancreatitis Social History (Updated 04/24/20 @ 11:03 by Fran Tineo MD) Smoking and tobacco status: current every day smoker cigarettes Packs smoked per day: 0.75 Years cigarettes smoked: 5 Marital status: Current occupational status: employed 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 She is sitting somewhat forward but does not appear to be in any acute distress. The pupils are equal. No carotid bruits are heard. The lungs are clear. The heart is regular. The abdomen is moderately obese and the patient has some scattered tattoos over the lower abdomen. She has some healed laparoscopic incisions near her midline as well as a little larger vertical scar around the area of her umbilicus. Bowel sounds are hypoactive. The patient has her maximum point of tenderness in the right upper quadrant with a positive Welsh's sign. No obvious masses are palpated. The extremities reveal no edema. Neurologically the patient is grossly intact. Data : 04/24/20 09:12 04/24/20 09:12 Other Labs: Laboratory Tests 04/24/20 04/24/20 09:12 09:12 Total Bilirubin 0.2 AST 16 ALT 16 Alkaline Phosphatase 95 HCG, Qual Negative US: Radiologist's impression: Gallbladder ultrasound 04/24/2020 IMPRESSION: 1. Cholelithiasis with mildly prominent gallbladder wall and positive Welsh sign suggesting cholecystitis. 2. Fatty liver. A&P Assessment and plan (1) Acute cholecystitis due to biliary calculus: The patient's been having symptoms that are consistent with ongoing biliary colic over the past 6 months. She has had multiple worsening episodes recently and now has a prominent gallbladder wall on her most recent ultrasound. I think her exam is consistent with early acute calculus cholecystitis. 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 We discussed this in more detail today. Cholecystectomiess were also discussed including the associated surgical risks of bleeding, infection, internal organ injury, chances of an open procedure, etc. The patient seems to understand and would like to proceed with a cholecystectomy today. Status: Acute Attestations Medical Necessity Statement*: The patient has already indicated that she would very much like to try to go home today if there are no problems during surgery or contraindications otherwise. For that reason, she will be left in outpatient status. Coding Level of Care Code Acute Dinkey Engine Operator for Killian Cantu Diagnoses Acute cholecystitis due to biliary calculus K80.00
--- NOTE | 2020-04-24 11:02 | P.ANESASSM_ITS ---
Pre-Anesthetic Assessment Pre-Anesthetic Assessment: Height/Weight: Height 1.47 m Weight 88.451 kg Temp Pulse Resp BP Pulse Ox 97.1 F L 89 18 124/70 98 04/24/20 08:38 04/24/20 10:07 04/24/20 10:07 04/24/20 10:07 04/24/20 10:07 Preop Diagnosis: cholecystitis Proposed Procedure: Operation Date: 04/24/20 11:30 Proposed Procedures p Laparoscopic Cholecystectomy(Not Applicable) - Fran Tineo MD Familial anesthetic complications: None Was Beta Jay taken within 24 hours: N/A Last intake: NPO > 8 hrs Social: Social History: Tobacco Exam: Pre-Anes Outpt Exam: alert, oriented x 3, clear to auscultation bilaterally and regular rate & rhythm Airway: Cervical ROM: WNL MP: 1 Dentition: Full Pulmonary: Pulmonary: Asthma : Comments: pyelonephritis X 3 this year Neurogenic bladder - often has to self catheterize Metabolic: Metabolic: Morbid obesity Comments: PCOS Neuropsych: Neuropsych: Seizure (Suspected abscence seizures by marci - not diagnosed yet) Anesthetic Plan: ASA status: 3 Anesthesia: General Risk of > 500 ml blood loss (7ml/kg in children): No PFSH Anesthesia PFSH: Medical History (Updated 04/24/20 @ 10:56 by Fran Tineo MD) Incomplete bladder emptying Interstitial cystitis Migraine headache Neurogenic bladder PCOS (polycystic ovarian syndrome) Recurrent UTI Seizures Patient still being worked up; was told she might have MS, but another neurologist disagreed Surgical History (Updated 04/24/20 @ 10:54 by Fran Tineo MD) History of appendectomy History of dental surgery S/P colon resection Ileocecal resection secondary to the presence of a Meckel's diverticulum Family History Father CAD (coronary artery disease) Mother Pancreatitis Social History Smoking and tobacco status: current every day smoker cigarettes Packs smoked per day: 0.75 Years cigarettes smoked: 5 Marital status: Current occupational status: employed 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 History of recent travel: No Female Reproductive History: Date of last menstrual period: 04/09/20 Data Anesthesia CBC & Chem 7: 04/24/20 09:12 11/21/20 09:12 Other Labs: Laboratory Results - last 48 hr 04/24/20 04/24/20 04/24/20 08:30 09:12 09:12 WBC 8.7 RBC 5.34 H Hgb 15.0 Hct 47.2 H MCV 88.4 MCH 28.1 MCHC 31.8 RDW 13.5 Plt Count 358 MPV 9.3 Neut % (Auto) 63.8 Lymph % (Auto) 24.5 Saline % (Auto) 7.3 Eos % (Auto) 3.9 Baso % (Auto) 0.2 Neut # (Auto) 5.51 Lymph # (Auto) 2.1 Saline # (Auto) 0.6 Eos # (Auto) 0.3 Baso # (Auto) 0.0 Nucleated RBC % (auto) 0 Nucleated RBCs # 0.0 Sodium 137 Potassium 4.3 Chloride 101 Carbon Dioxide 27 Anion Gap 13.3 BUN 10 Creatinine 0.9 GFR Calculation 75.7 L Glucose 102 Calculated Osmolality 283 L Calcium 9.0 Total Bilirubin 0.2 AST 16 ALT 16 Alkaline Phosphatase 95 Total Protein 7.0 Albumin 4.3 Globulin 2.7 Lipase 21 HCG, Qual Urine Color Yellow Urine Appearance Hazy A Urine pH 7 Ur Specific [place] 1.010 Urine Protein Neg Urine Glucose (UA) Norm Urine Ketones Negative Urine Blood 2+ H Urine Nitrate Negative Urine Bilirubin Neg Urine Urobilinogen Norm Ur Leukocyte Esterase 2+ H Urine RBC 5-10 H Urine WBC 10-15 H Ur Squamous Epith Cells 25-40 H Amorphous Sediment Not Reportable Urine Bacteria 2+ H Urine Mucus 1+ 04/24/20 09:12 WBC RBC Hgb Hct MCV MCH MCHC RDW Plt Count MPV Neut % (Auto) Lymph % (Auto) Saline % (Auto) Eos % (Auto) Baso % (Auto) Neut # (Auto) Lymph # (Auto) Saline # (Auto) Eos # (Auto) Baso # (Auto) Nucleated RBC % (auto) Nucleated RBCs # Sodium Potassium Chloride Carbon Dioxide Anion Gap BUN Creatinine GFR Calculation Glucose Calculated Osmolality Calcium Total Bilirubin AST ALT Alkaline Phosphatase Total Protein Albumin Globulin Lipase HCG, Qual Negative Urine Color Urine Appearance Urine pH Ur Specific [place] Urine Protein Urine Glucose (UA) Urine Ketones Urine Blood Urine Nitrate Urine Bilirubin Urine Urobilinogen Ur Leukocyte Esterase Urine RBC Urine WBC Ur Squamous Epith Cells Amorphous Sediment Urine Bacteria Urine Mucus Cardiac Studies: No Data to Display
[2020-04-24] MEDS: sodium chloride 0.9% 1,000 ML 30 ML IV (11:05)
[2020-04-24] MEDS: clindamycin 900 MG/50 ML PREMIX 100 MG IV (11:25)
--- NOTE | 2020-04-24 12:01 | P.OP_ITS ---
Operative Report Date of procedure: April 24, 2020 Pre-op Diagnosis: Early acute calculus cholecystitis. Post-op diagnosis: same Procedure Done: Laparoscopic cholecystectomy. Specimens removed/disposition: Gallbladder. Surgeon: Fran Tineo Anesthesia: General Estimated blood loss (mL): 5 Complications: None. Condition: stable Disposition: PACU Procedure: The patient was brought to the Operating Room and was placed in a supine position on the Operating Room table. General endotracheal anesthesia was induced. The abdomen was prepped and draped in a sterile fashion. A small vertical incision was carried out in the inferior aspect of the umbilicus. Blunt dissection was carried out down to the fascia, which was grasped with a Valencia clamp. A stay suture of 0 Vicryl was placed on either side of the midline and the midline fascia was incised. The underlying peritoneum was opened bluntly and the Miracle port was placed directly into the peritoneal cavity and was held in place with the inflatable balloon. The peritoneal cavity was insufflated with carbon dioxide. The laparoscope was used to inspect the abdominal cavity. The patient was found to have some omental adhesions around the umbilical region which were all eventually taken down. No other gross abnormalities were noted. A 5 millimeter port was placed in the epigastrium under direct vision. Two 5-millimeter ports were placed on the right side of the abdomen under direct vision. The gallbladder was grasped and was elevated. Blunt dissection and hydrodissection were carried out in the infundibular region of the gallbladder and the cystic duct and cystic artery were identified. There were only some mild edematous changes in the surrounding tissue. The gallbladder was partially removed from the liver bed using cautery and the spatula to confirm the anatomy before the structures were clipped and divided. The gallbladder was then removed from the liver bed using cautery and the spatula. After the gallbladder had been removed from the liver bed, the laparoscope was moved to the epigastric port and the gallbladder was removed from the peritoneal cavity through the umbilical port site after being placed in a laparoscopic bag. The stay sutures of Vicryl were tied to each other at the umbilicus. An additional [id number] suture of 0 Vicryl was placed, closing the defect so that it was airtight. The perihepatic spaces were irrigated with saline and the liver bed was reinspected. No ongoing problems were seen. The remaining ports were removed from the abdominal wall and the pne umoperitoneum was evacuated. All skin incisions were closed using inverted interrupted sutures of 4-0 Vicryl. Benzoin and Steri-Strips were placed over the incisions and Band-Aids followed. The patient was taken to the Recovery Area in stable condition postoperatively.
[2020-04-24] MEDS: fentaNYL 50 mcg/mL INJ 2mL IVP ×2 (12:22→12:27)
--- NOTE | 2020-04-24 12:25 | PM.PACU ---
PACU note PACU note: vss, good respiratory effort Post-Anesthesia Exam: awake Disposition: discharged
[2020-04-24] MEDS: HYDROcodone-acetaminophen 5-325 mg Tablet 1 TAB PO (13:00)
== END 2020-04-24 13:24 | disposition home or self-care (01) ==
LOC: ER 10:32 → OR 10:36
PROVIDERS: Emergency Provider Nurse Practitioner Family; PCP Internal Medicine; Visit Provider Surgery
PROC: 0FT44ZZ Resection of Gallbladder, Percutaneous Endoscopic Approach (ICD-10-PCS; CPT 47562; principal; 2020-04-24 11:30)
DX: K80.00 Calculus of gallbladder with acute cholecystitis without obstruction (principal); J45.909 Unspecified asthma, uncomplicated; E66.01 Morbid (severe) obesity due to excess calories; Z68.41 Body mass index [BMI] 40.0-44.9, adult; F17.210 Nicotine dependence, cigarettes, uncomplicated
CPT/HCPCS: 47562; 12345; 76705; 80053; 81001; 83690; 84703; 85025; 88304; 96365; 96375; 99282; J0131; J2250; J2405; J2704; J2710; J3010; J3490; J7030; J7040

== ENCOUNTER 2020-05-30 08:39 | Emergency (ER) | payer SELFPAY ==
[2020-05-30 08:50] VITALS: BP 138/89; PULSE 96; RESP 18; TEMP 36.6; O2SAT 95; BMI 39.0
[2020-05-30 08:59] VITALS: BP 127/84; PULSE 94; RESP 16; O2SAT 97
[2020-05-30] MEDS: sodium chloride 0.9% 500 ML 999 ML IV (09:04)
[2020-05-30] MEDS: ondansetron 2 mg/ML SDV 2 mL 4 MG IVP (09:04)
[2020-05-30 09:05] LABS: Basophils % 0.1 %; Hematocrit 46.5 % (37.0-47.0); Hemoglobin 15.4 g/dL (11.5-15.3); Lymphocytes # 1.3 10^3/uL (0.8-4.8); Lymphocytes % 7.5 %; Mean Corpuscular HGB Conc 33.1 g/dL (30.0-36.0); Mean Corpuscular Hemoglobin 28.3 pg (28.0-34.0); Mean Corpuscular Volume 85.5 fL (81-99); Mean Platelet Volume 9.8 fL (7.4-10.4); Monocytes # 0.5 10^3/uL (0.2-0.9); Monocytes % 2.6 %; Neutrophils # 15.36 10^3/uL (1.8-7.7); Neutrophils % 89.3 %; Nucleated Red Blood Cells % 0 %; Platelet Count 389 10^3/cmm (130-400); Red Blood Count 5.44 10^6/uL (4.1-5.3); Red Cell Distribution Width 12.7 % (12.1-15.1); White Blood Count 17.2 10^3/uL (4.0-10.0)
--- NOTE | 2020-05-30 09:06 | ED_ITS ---
HPI - Nausea/Vomiting/Diarrhea General: Chief complaint: Nausea/Vomiting/Diarrhea Stated complaint: N/V Time Seen by Provider: 05/30/20 08:40 Source: patient Mode of arrival: ambulatory Limitations: no limitations History of Present Illness: HPI Narrative: 24-year-old female patient presents to the emergency department with nausea vomiting diarrhea. Cholecystectomy completed 04/24/2020. States since her surgery, she continues to experience daily episodes of vomiting. She reports nausea vomiting has worsened past 4 days. She reports diarrhea episodes have also been present since cholecystectomy, diarrhea occurs after eating. She reports this is probably the normal process of life post cholecystectomy, but is concerned of her nausea vomiting. States last intake male yesterday with emesis afterwards, states attempted to drink water this morning but vomited. States she may have drank water too fast that led to vomiting. States use of Zofran has not helped with v omiting episodes. She also reports episodes of pyelonephritis and does not present with fever or abdominal pain, history of neurogenic bladder with need for self catheterizations but unable to financially afford catheters. She states may have urinary tract infection which can induce vomiting. She also reports has not taken Omnicef prophylactically due to financial constrictions. She denies fever chills. MD elicited complaint: nausea, vomiting and diarrhea Pertinent past history: abdominal surgery Onset (ago): day(s) (Since 04/24/2020, worsening past 4 days) Description of vomiting: bilious Description of diarrhea: other (Brown, loose) Associated nausea: Yes Associated abdominal pain: No Exacerbating factors: eating Relieving factors: vomiting Context: recent surgery/procedure and history of abdominal surgery Associated symtoms: Reports decreased urine output, fatigue, anorexia, malaise, nausea and weakness (Due to vomiting and decreased intake of food); Denies anxiety, chest pain, dysuria, headache(s) or palpitations Treatment prior to arrival: other (Zofran) Review of Systems General: Reports: 10 or more systems reviewed and unremarkable except in HPI and below Const: Reports: change in appetite, fatigue and malaise; Denies: fever(s), chills or body aches Eyes: Denies: blurry vision or eye redness ENMT: Denies: throat pain, dental pain or disequilibrium Card: Denies: chest pain, palpitations or irregular heart rhythm Resp: Denies: dyspnea, productive cough, non-productive cough or wheezing GI: Reports: nausea, vomiting and diarrhea; Denies: heartburn, constipation or pain on defecation : Reports: difficulty voiding; Denies: flank pain, dysuria or urinary urgency Musc: Reports: muscle weakness; Denies: neck pain, back pain, joint warmth, joint stiffness or muscle cramps Skin/Breast: Denies: rash or pruritus Neuro: Denies: headache(s), weakness in extremities or behavioral changes Psych: Reports: change in appetite; Denies: anxiety or depression Jimmy/Lymph: Denies: easy bruising PFSH ED PFSH: Medical History Incomplete bladder emptying Interstitial cystitis Migraine headache Neurogenic bladder PCOS (polycystic ovarian syndrome) Recurrent UTI Seizures Patient still being worked up; was told she might have MS, but another neurologist disagreed Surgical History History of appendectomy History of dental surgery S/P colon resection Ileocecal resection secondary to the presence of a Meckel's diverticulum Family History Father CAD (coronary artery disease) Mother Pancreatitis Social History Smoking and tobacco status: current every day smoker cigarettes Packs smoked per day: 0.75 Years cigarettes smoked: 5 Marital status: Current occupational status: employed 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 History of recent travel: No Female Reproductive History: Date of last menstrual period: 04/09/20 Physical Exam Const: COMMON NORMALS: no acute distress, patient oriented x3, healthy appearing, alert and well nourished GENERAL APPEARANCE: cooperative, comfortable, well kempt and well developed; not in distress, not anxious and not ill appearing NUTRITIONAL APPEARANCE: obese ORIENTATION/CONSCIOUSNESS: Yes awake, Yes oriented to person, Yes oriented to place and Yes oriented to time HENMT: COMMON NORMALS: normocephalic, atraumatic, Normal external nose present, moist oral mucous membranes and oropharynx normal HEAD & SCALP: normal to inspection, normocephalic and atraumatic FACE & SINUS: normal facial exam, sinuses nontender and face symmetric NOSE: Normal external nose present MOUTH: Normal oral and palatal mucosa present, lip normal, tongue normal and moist mucous membranes abnormal (dry, cricked lips) THROAT: posterior oropharynx normal Eye: COMMON NORMALS: Equal, round and reactive pupils present and EOMs intact bilaterally GENERAL EYE: appearance normal, both eyes and all related structures PUPIL: Yes Equal, round and reactive pupils present Neck/C-Spine: COMMON NORMALS: full ROM, no lymphadenopathy and supple GENERAL: Yes normal visual inspection and Yes trachea midline CERVICAL SPINE: Yes cervical ROM normal Lymph: LYMPHATIC: no lymphadenopathy noted Chest: COMMONS NORMALS: normal inspection of the chest and normal palpation of entire chest wall Resp: COMMON NORMALS: normal respiratory effort, No retractions, No use of accessory muscles and clear to auscultation bilaterally EFFORT & INSPECTION: Yes able to speak in complete sentences AUSCULTATION: clear to auscultation bilaterally Cardio: COMMON NORMALS: regular rate, regular rhythm, S1 normal heart sound present, S2 normal heart sound present and Peripheral pulses 2+ throughout RATE: regular rate RHYTHM: regular rhythm HEART SOUNDS: S1 normal heart sound present and S2 normal heart sound present PERIPHERAL PULSES: Peripheral pulses 2+ throughout GI: COMMON NORMALS: Normal to inspection, nondistended, normoactive bowel sounds present, Soft to palpation and non-tender INSPECTION: Yes normal to inspection, No abdominal wall ecchymosis, Yes central obesity and Yes scar (From cholecystectomy sites without erythema/drainage) AUSCULTATION: Yes normoactive bowel sounds PALPATION: Yes Soft to palpation : COMMON NORMALS: Yes no CVA tenderness BLADDER/KIDNEY EXAM: Yes no CVA tenderness Back/Pelvis: COMMON NORMALS: no CVA tenderness and thoracic and lumbar spine normal to inspection Extremity: COMMON NORMALS: normal to inspection and capillary refill normal Neuro: COMMON NORMALS: patient oriented x3 and no focal motor deficits SENSORIUM/ORIENTATION: Yes alert, Yes oriented to person, Yes oriented to place and Yes oriented to time Psych: COMMON NORMALS: mental status grossly normal, Normal thought process present and cooperative APPEARANCE: Yes well kempt ACTIVITY/MOTOR BEHAVIOR: Yes appropriate eye contact THOUGHT PROCESS: Normal thought process present Skin: COMMON NORMALS: no rashes or lesions noted and turgor normal GENERAL SKIN EXAM: no rashes or lesions noted and turgor normal Course ED course: 24-year-old female patient presents to the emergency department with continued nausea vomiting diarrhea status post cholecystectomy in April. White blood count elevated, patient has been vomiting which can lead to findings, chemistry with slight hyponatremia, 135, patient had to leave due to family medical emergency and was not able to stay for test results. Patient signed out AMA. After patient had to leave, results were reviewed, patient appears to have urinary tract infection, Cipro 500 mg p.o. twice daily for 7 days along with prescription for Pepcid and Reglan for nausea vomiting provided. Prescription with instruction given to nursing staff to attempt to call the patient with recommended treatment. Medications to be called to pharmacy of choice. Also advised patient to follow-up with primary care this week for reevaluation. Vital Signs: Vital signs: Vital Signs Temperature 97.9 F 05/30/20 08:50 Pulse Rate 94 05/30/20 09:20 Respiratory Rate 18 05/30/20 09:20 Blood Pressure 126/66 05/30/20 09:20 Pulse Oximetry 98 05/30/20 09:20 MDM - Nausea/Vomiting/Diarrhea Lab Data: Labs: Lab Results 05/30/20 05/30/20 05/30/20 Range/Units 08:59 08:59 08:59 WBC 17.2 H (4.0-10.0) 10^3/ uL RBC 5.44 H (4.1-5.3) 10^6/u L Hgb 15.4 H (11.5-15.3) g/dL Hct 46.5 (37.0-47.0) % MCV 85.5 (81-99) fL MCH 28.3 (28.0-34.0) pg MCHC 33.1 (30.0-36.0) g/dL RDW 12.7 (12.1-15.1) % Plt Count 389 (130-400) 10^3/c mm MPV 9.8 (7.4-10.4) fL Neut % (Auto) 89.3 % Lymph % (Auto) 7.5 % [place] % (Auto) 2.6 % Eos % (Auto) 0.0 % Baso % (Auto) 0.1 % Neut # (Auto) 15.36 H (1.8-7.7) 10^3/u L Lymph # (Auto) 1.3 (0.8-4.8) 10^3/u L [place] # (Auto) 0.5 (0.2-0.9) 10^3/u L Eos # (Auto) 0.0 (0.0-0.8) 10^3/u L Baso # (Auto) 0.0 (0.0-0.1) 10^3/u L Nucleated RBC % (a uto) 0 % Nucleated RBCs # 0.0 /100WBC Sodium 135 L (136-145) mmol/L Potassium 4.3 (3.5-5.1) mmol/L Chloride 103 (98-107) mmol/L Carbon Dioxide 20 L (22-29) mmol/L Anion Gap 16.3 (5-19) BUN 13 (6-20) mg/dL Creatinine 0.8 (0.5-0.9) mg/dL GFR Calculation 86.7 L (90-130) mL/min Glucose 126 H (65-115) mg/dL Calculated Osmolal ity 282 L (285-295) mOsm/k g Calcium 9.6 (8.5-10.5) mg/dL Total Bilirubin 0.3 (0.15-1.2) mg/dL AST 25 (0-32) U/L ALT 50 H (0-33) U/L Alkaline Phosphata se 99 (35-105) IU/L Total Protein 7.7 (6.6-8.7) g/dL Albumin 4.7 (3.5-5.2) g/dL Globulin 3.0 (1.3-4.6) g/dL Lipase 22 (13-60) U/L Urine Color (Yellow) Urine Appearance (CLEAR) Urine pH (5-7) Ur Specific Gravit y (1.005-1.030) Urine Protein (Negative) Urine Glucose (UA) (Normal) Urine Ketones (Negative) Urine Blood (Negative) Urine Nitrate (Negative) Urine Bilirubin (Negative) Urine Urobilinogen (Negative) mg/dL Ur Leukocyte Debbie ase (Negative) Urine RBC (0-2) /hpf Urine WBC (0-5) /hpf Ur Squamous Epith Cells (0-5) /hpf Amorphous Sediment Urine Bacteria (NONE) /hpf Urine HCG, Qual Negative (Negative) 05/30/20 Range/Units 09:07 WBC (4.0-10.0) 10^3/ uL RBC (4.1-5.3) 10^6/u L Hgb (11.5-15.3) g/dL Hct (37.0-47.0) % MCV (81-99) fL MCH (28.0-34.0) pg MCHC (30.0-36.0) g/dL RDW (12.1-15.1) % Plt Count (130-400) 10^3/c mm MPV (7.4-10.4) fL Neut % (Auto) % Lymph % (Auto) % [place] % (Auto) % Eos % (Auto) % Baso % (Auto) % Neut # (Auto) (1.8-7.7) 10^3/u L Lymph # (Auto) (0.8-4.8) 10^3/u L [place] # (Auto) (0.2-0.9) 10^3/u L Eos # (Auto) (0.0-0.8) 10^3/u L Baso # (Auto) (0.0-0.1) 10^3/u L Nucleated RBC % (a uto) % Nucleated RBCs # /100WBC Sodium (136-145) mmol/L Potassium (3.5-5.1) mmol/L Chloride (98-107) mmol/L Carbon Dioxide (22-29) mmol/L Anion Gap (5-19) BUN (6-20) mg/dL Creatinine (0.5-0.9) mg/dL GFR Calculation (90-130) mL/min Glucose (65-115) mg/dL Calculated Osmolal ity (285-295) mOsm/k g Calcium (8.5-10.5) mg/dL Total Bilirubin (0.15-1.2) mg/dL AST (0-32) U/L ALT (0-33) U/L Alkaline Phosphata se (35-105) IU/L Total Protein (6.6-8.7) g/dL Albumin (3.5-5.2) g/dL Globulin (1.3-4.6) g/dL Lipase (13-60) U/L Urine Color Yellow (Yellow) Urine Appearance Hazy A (CLEAR) Urine pH 6 (5-7) Ur Specific Gravit y 1.015 (1.005-1.030) Urine Protein Neg (Negative) Urine Glucose (UA) Norm (Normal) Urine Ketones Negative (Negative) Urine Blood 2+ H (Negative) Urine Nitrate Negative (Negative) Urine Bilirubin Neg (Negative) Urine Urobilinogen Norm (Negative) mg/dL Ur Leukocyte Debbie ase 2+ H (Negative) Urine RBC 0-4 H (0-2) /hpf Urine WBC 15-25 H (0-5) /hpf Ur Squamous Epith Cells 10-15 H (0-5) /hpf Amorphous Sediment Not Reportable Urine Bacteria 1+ H (NONE) /hpf Urine HCG, Qual (Negative) Discharge Plan Discharge Patient Disposition: Left Against Medical Advice Prescriptions: No Action trazodone 100 mg tablet 100 mg PO BEDTIME RF: 0 B-complex with vitamin C Capsule 1 cap PO DAILY RF: 0 ibuprofen 800 mg tablet 800 mg PO TID PRN (Reason: Pain) RF: 0 venlafaxine 150 mg capsule,extended release 24hr 150 mg PO DAILY Qty: 30 RF: 4 mecobalamin (vitamin B12) 5,000 mcg lozenge 5,000 mcg PO DAILY RF: 0 ferrous sulfate 325 mg (65 mg iron) tablet 325 mg PO DAILY RF: 0 hydroxyzine HCl 50 mg tablet 200 mg PO DAILY RF: 0 ondansetron HCl [Zofran] 4 mg tablet 4 mg PO Q6H PRN (Reason: nausea and vomiting) Qty: 20 RF: 0 ciprofloxacin HCl [Cipro] 500 mg tablet 500 mg PO BID Qty: 20 RF: 0 baclofen 10 mg tablet 10 mg PO TID PRN (Reason: Muscle Spasm) RF: 0 metoclopramide HCl 10 mg tablet 10 mg PO DAILY PRN (Reason: headache nausea) RF: 0 magnesium oxide 400 mg magnesium Capsule 400 mg PO DAILY RF: 0 albuterol sulfate [Ventolin HFA] 90 mcg/actuation HFA aerosol inhaler 2 inh INHALATION QID PRN (Reason: shortness of breath or wheezing) Qty: 18 RF: 0 aspirin 325 mg Tablet 325 mg PO PRN RF: 0 hydrocodone-acetaminophen 5-325 mg tablet 1 - 2 tab PO Q5H PRN (Reason: pain) Qty: 30 RF: 0 Referrals: Sis Da Silva, [Primary Care Provider] - Coding Level of Care Code ED [employer] Laboratory Assistant for Chg Fwd Exam Comprehensive
[2020-05-30] MEDS: metoclopramide 5 mg/mL SDV 2 mL 10 MG IVP (09:15)
[2020-05-30 09:20] VITALS: BP 126/66; PULSE 94; RESP 18; O2SAT 98
[2020-05-30 09:27] LABS: Alanine Aminotransferase 50 U/L (0-33); Albumin Level 4.7 g/dL (3.5-5.2); Alkaline Phosphatase 99 IU/L (35-105); Anion Gap 16.3 (5-19); Aspartate Amino Transferase 25 U/L (0-32); Blood Urea Nitrogen 13 mg/dL (6-20); Calcium 9.6 mg/dL (8.5-10.5); Carbon Dioxide 20 mmol/L (22-29); Chloride 103 mmol/L (98-107); Glomerular Filtration Rate 86.7 mL/min (90-130); Glucose 126 mg/dL (65-115); Lipase 22 U/L (13-60); Osmolality Calculated 282 mOsm/kg (285-295); Potassium 4.3 mmol/L (3.5-5.1); Sodium 135 mmol/L (136-145); Total Bilirubin 0.3 mg/dL (0.15-1.2); Total Protein 7.7 g/dL (6.6-8.7)
--- NOTE | 2020-05-30 09:37 | PC.NURSE ---
Patient called out using call light. Patient reports that she would like the bed laid down and a few blankets. Bed laid flat and 2 warm blankets provided to patient.
[2020-05-30 09:45] LABS: Add Urine Microscopic? YES; Bilirubin Urine Neg (Negative); Blood Urine 2+ (Negative); Glucose Urine UA Norm (Normal); Ketones Urine Negative (Negative); Leukocyte Esterase Urine 2+ (Negative); Nitrate Urine Negative (Negative); Protein Urine Neg (Negative); Specific Gravity, Urine 1.015 (1.005-1.030); Urine Appearance Hazy (CLEAR); Urine Color Yellow (Yellow); Urobilinogen Urine Norm (Negative); pH Urine 6 (5-7)
[2020-05-30 09:55] LABS: Add Urine Culture? No; Bacteria Urine 1+ /hpf; RBC Urine 0-4 /hpf (0-2); WBC Urine 15-25 /hpf (0-5)
--- NOTE | 2020-05-30 12:09 | PC.NURSE ---
Prescriptions from Sosa Mata called into [facility] in [place].
== END 2020-05-30 09:42 | disposition left against medical advice (07) ==
LOC: ER 08:43
PROVIDERS: Emergency Provider Nurse Practitioner Family; PCP Internal Medicine
DX: R11.2 Nausea with vomiting, unspecified (principal); R19.7 Diarrhea, unspecified; Z53.21 Procedure and treatment not carried out due to patient leaving prior to being seen by health care provider; Z79.82 Long term (current) use of aspirin; F17.210 Nicotine dependence, cigarettes, uncomplicated
CPT/HCPCS: 12345; 80053; 81001; 81025; 83690; 85025; 96374; 96375; 99283; J2405; J2765; J7040

== ENCOUNTER 2020-06-30 10:11 | Emergency (ER) | payer SELFPAY ==
[2020-06-30 10:11] VITALS: BP 122/84; PULSE 111; RESP 18; TEMP 36.7; O2SAT 94; BMI 39.6
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
--- NOTE | 2020-06-30 10:25 | XR_ITS ---
WS: [id number] Exam: XR knee LT 3V* [id number] Date/Time of Exam: 06/30/2020 10:26 AM Reason For Exam: knee pain No fracture or dislocation. No joint effusion. The joint compartments are relatively well maintained. XR/XR knee LT 3V* [id number] IMPRESSION: 1. Unremarkable left knee.
[2020-06-30 10:37] LABS: Basophils % 0.1 %; Eosinophils % 0.1 %; Hematocrit 45.4 % (37.0-47.0); Hemoglobin 15.2 g/dL (11.5-15.3); Lymphocytes % 6.9 %; Mean Corpuscular HGB Conc 33.5 g/dL (30.0-36.0); Mean Corpuscular Volume 86.6 fL (81-99); Mean Platelet Volume 9.4 fL (7.4-10.4); Monocytes # 0.3 10^3/uL (0.2-0.9); Neutrophils # 12.36 10^3/uL (1.8-7.7); Neutrophils % 90.2 %; Nucleated Red Blood Cells % 0 %; Platelet Count 420 10^3/cmm (130-400); Red Blood Count 5.24 10^6/uL (4.1-5.3); Red Cell Distribution Width 12.4 % (12.1-15.1); White Blood Count 13.7 10^3/uL (4.0-10.0)
[2020-06-30 10:58] LABS: Anion Gap 13.1 (5-19); Blood Urea Nitrogen 9 mg/dL (6-20); Calcium 9.7 mg/dL (8.5-10.5); Carbon Dioxide 26 mmol/L (22-29); Chloride 102 mmol/L (98-107); Glomerular Filtration Rate 100.4 mL/min (90-130); Glucose 124 mg/dL (65-115); Osmolality Calculated 284 mOsm/kg (285-295); Potassium 4.1 mmol/L (3.5-5.1); Sodium 137 mmol/L (136-145)
[2020-06-30 11:16] LABS: Add Urine Microscopic? YES; Bilirubin Urine Neg (Negative); Blood Urine 2+ (Negative); Glucose Urine UA 2+ (Normal); Ketones Urine Negative (Negative); Leukocyte Esterase Urine 1+ (Negative); Nitrate Urine Negative (Negative); Protein Urine Neg (Negative); Specific Gravity, Urine 1.015 (1.005-1.030); Urine Appearance SL Hazy (CLEAR); Urine Color Yellow (Yellow); Urobilinogen Urine Norm (Negative); pH Urine 7 (5-7)
[2020-06-30 11:17] LABS: Bacteria Urine 1+ /hpf; RBC Urine 0-4 /hpf (0-2)
[2020-06-30 11:18] LABS: Add Urine Culture? No
[2020-06-30] MEDS: ketorolac 30 mg/mL INJ IVP (11:30)
[2020-06-30 11:31] VITALS: BP 112/72; PULSE 94; RESP 14; O2SAT 95
[2020-06-30 11:58] VITALS: BP 112/72; PULSE 101; RESP 16; O2SAT 95
== END 2020-06-30 11:59 | disposition home or self-care (01) ==
PROVIDERS: Emergency Provider Family Medicine; PCP Internal Medicine
DX: M54.2 Cervicalgia (principal); Z79.82 Long term (current) use of aspirin; F17.210 Nicotine dependence, cigarettes, uncomplicated; V89.2XXA Person injured in unspecified motor-vehicle accident, traffic, initial encounter
CPT/HCPCS: 12345; 72125; 73562; 80048; 81001; 85025; 96374; 99282; 99283; J1885

== ENCOUNTER → 2020-07-22 11:40 | Outpatient (BNVA) | payer SELFPAY | PROVIDERS: PCP Internal Medicine; Visit Provider Nurse Practitioner Family | DX: R33.9 Retention of urine, unspecified (principal); N39.0 Urinary tract infection, site not specified | CPT/HCPCS: 81003; 87086 ==

== ENCOUNTER → 2020-08-07 13:09 | Outpatient (BNVA) | payer OTHER, SELFPAY | PROVIDERS: PCP Internal Medicine; Visit Provider Nurse Practitioner Family | DX: Z20.822 Contact with and (suspected) exposure to COVID-19 (principal) | CPT/HCPCS: 87635 ==

== ENCOUNTER 2020-10-11 10:55 | Emergency (ER) | payer SELFPAY ==
[2020-10-11 11:06] VITALS: BP 101/75; PULSE 91; RESP 18; TEMP 36.7; O2SAT 97; BMI 39.4
[2020-10-11 11:13] VITALS: BP 101/75; PULSE 95; RESP 18; O2SAT 97
[2020-10-11 11:46] LABS: Basophils # 0.1 10^3/uL (0.0-0.1); Eosinophils # 0.3 10^3/uL (0.0-0.8); Eosinophils % 5.4 %; Hematocrit 45.8 % (37.0-47.0); Hemoglobin 15.2 g/dL (11.5-15.3); Lymphocytes # 1.7 10^3/uL (0.8-4.8); Lymphocytes % 27.2 %; Mean Corpuscular HGB Conc 33.2 g/dL (30.0-36.0); Mean Corpuscular Hemoglobin 28.6 pg (28.0-34.0); Mean Corpuscular Volume 86.1 fL (81-99); Mean Platelet Volume 9.2 fL (7.4-10.4); Monocytes # 0.8 10^3/uL (0.2-0.9); Monocytes % 12.4 %; Neutrophils # 3.28 10^3/uL (1.8-7.7); Neutrophils % 53.7 %; Nucleated Red Blood Cells % 0 %; Platelet Count 348 10^3/cmm (130-400); Red Blood Count 5.32 10^6/uL (4.1-5.3); Red Cell Distribution Width 11.9 % (12.1-15.1); White Blood Count 6.1 10^3/uL (4.0-10.0)
[2020-10-11 11:48] LABS: Add Urine Microscopic? YES; Bilirubin Urine 1+ (Negative); Blood Urine 3+ (Negative); Glucose Urine UA Norm (Normal); Ketones Urine Negative (Negative); Leukocyte Esterase Urine 2+ (Negative); Nitrate Urine Positive (Negative); Protein Urine 1+ (Negative); Specific Gravity, Urine 1.025 (1.005-1.030); Urine Appearance Cloudy (CLEAR); Urine Color Dark Yellow (Yellow); Urobilinogen Urine 4 mg/dL (Negative); pH Urine 5 (5-7)
[2020-10-11 11:49] LABS: Add Urine Culture? Yes; Bacteria Urine 1+ /hpf; Squamous Epithelial Cell Urine RARE /hpf (0-5); WBC Urine TOO NUMEROUS TO CNT /hpf (0-5)
[2020-10-11 12:02] LABS: Anion Gap 14.5 (5-19); Blood Urea Nitrogen 7 mg/dL (6-20); Calcium 8.7 mg/dL (8.5-10.5); Carbon Dioxide 23 mmol/L (22-29); Chloride 99 mmol/L (98-107); Glucose 83 mg/dL (65-115); Osmolality Calculated 273 mOsm/kg (285-295); Potassium 3.5 mmol/L (3.5-5.1); Sodium 133 mmol/L (136-145)
[2020-10-11 12:13] VITALS: BP 125/84; PULSE 80; RESP 18; O2SAT 95
[2020-10-11] MEDS: cefTRIAXone 1,000 MG in lidocaine 1% 2.1 ML 2 MG IM (13:55)
--- NOTE | 2020-10-11 13:55 | ED_ITS ---
HPI - Female Genitourinary General: Chief complaint: Urogenital-Female Stated complaint: Lower Back/ABD Pain Time Seen by Provider: 10/11/20 11:03 History of Present Illness: HPI Narrative: 25-year-old female presents emergency room with complaint of left flank pain radiating down into her groin she said this for several days she had multiple episodes of UTIs and pyelonephritis in the past she has cefdinir at home and she been prescribed in case she started having symptoms again she has been taking for the last 5 days despite this she continued to have advancement of symptoms. This included nausea and generalized weakness. She is not had any vomiting or diarrhea. MD elicited complaint: UTI Pertinent past history: recurrent UTIs and pyelonephritis Onset (ago): day(s) (5) Location of symptoms: suprapubic and flank (L) Severity: moderate Female Urogenital Radiation: Suprapubic Quality of pain: sharp Consistency: intermittent and progressively worsening Vaginal discharge: white Vaginal bleeding: none Urinary symptoms: Dysuria, Flank Pain and Hematuria Exacerbating factors: urination Relieving factors: none Associated symptoms: Reports abdominal pain; Deny short of breath, fevers/chills, headache(s), nausea, rash, seizures, syncope, vaginal bleeding, vaginal discharge, weakness or other Treatment prior to arrival: none Date of Last Menstrual Period: 04/09/20 Review of Systems Const: Denies: fever(s), chills, body aches, change in appetite, fatigue or malaise ENMT: Denies: throat pain, ear or mastoid pain, nasal discharge or nasal congestion Card: Denies: syncope Resp: Denies: dyspnea, productive cough or non-productive cough GI: Reports: abdominal pain; Denies: nausea : Denies: vaginal discharge Skin/Breast: Denies: rash or pruritus Neuro: Denies: headache(s) PFSH ED PFSH: Medical History Incomplete bladder emptying Interstitial cystitis Migraine headache Neurogenic bladder PCOS (polycystic ovarian syndrome) Recurrent UTI Seizures Patient still being worked up; was told she might have MS, but another neurologist disagreed Surgical History History of appendectomy History of dental surgery S/P colon resection Ileocecal resection secondary to the presence of a Meckel's diverticulum Family History Father CAD (coronary artery disease) Mother Pancreatitis Social History Smoking and tobacco status: current every day smoker cigarettes Packs smoked per day: 0.75 Years cigarettes smoked: 5 Marital status: Current occupational status: employed 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 History of recent travel: No Female Reproductive History: Date of last menstrual period: 04/09/20 Physical Exam Const: COMMON NORMALS: no acute distress GENERAL APPEARANCE: cooperative and comfortable ORIENTATION/CONSCIOUSNESS: Yes awake, Yes oriented to person, Yes oriented to place and Yes oriented to time HENMT: COMMON NORMALS: normocephalic, atraumatic and hearing grossly normal bilaterally HEAD & SCALP: normocephalic and atraumatic Eye: COMMON NORMALS: Equal, round and reactive pupils present, EOMs intact bilaterally, conjunctivae normal and no scleral icterus CONJUNCTIVA: Yes conjunctivae normal PUPIL: Yes Equal, round and reactive pupils present Neck/C-Spine: COMMON NORMALS: full ROM, no lymphadenopathy, supple and no JVD Lymph: LYMPHATIC: no lymphadenopathy noted and no lymphedema noted Resp: COMMON NORMALS: normal respiratory effort, No retractions, No use of accessory muscles and clear to auscultation bilaterally AUSCULTATION: clear to auscultation bilaterally Cardio: COMMON NORMALS: no JVD, regular rate, regular rhythm and No murmurs present (Cardio) RATE: regular rate RHYTHM: regular rhythm GI: COMMON NORMALS: Soft to palpation and No hepatosplenomegaly present AUSCULTATION: Yes normoactive bowel sounds PALPATION: Yes Soft to palpation, No Tenderness to palpation present (GI), No Guarding due to palpation present (GI) and Yes No hepatosplenomegaly present : SPECULUM EXAM - VAGINA: No vaginal bleeding OB/EXTERNAL & SPECULUM: No vaginal bleeding Extremity: COMMON NORMALS: normal to inspection, capillary refill normal, no clubbing, cyanosis or edema, no calf tenderness and no pedal edema Neuro: SENSORIUM/ORIENTATION: Yes oriented to person, Yes oriented to place and Yes oriented to time Skin: COMMON NORMALS: no rashes or lesions noted GENERAL SKIN EXAM: no rashes or lesions noted Course Vital Signs: Vital signs: Vital Signs Temperature 98.1 F 10/11/20 11:06 Pulse Rate 80 10/11/20 12:13 Respiratory Rate 18 10/11/20 12:13 Blood Pressure 125/84 10/11/20 12:13 Pulse Oximetry 95 10/11/20 12:13 MDM - Female MDM Narrative: Medical decision making narrative: Viewed findings with patient. Based on her previous urine cultures we will change her to Cipro 500 twice daily for 10 days also gave her Zofran and Diflucan follow-up with primary care return if has problems Lab Data: Labs: Lab Results 10/11/20 10/11/20 10/11/20 Range/Units 11:27 11:38 11:38 WBC 6.1 (4.0-10.0) 10^3/ uL RBC 5.32 H (4.1-5.3) 10^6/u L Hgb 15.2 (11.5-15.3) g/dL Hct 45.8 (37.0-47.0) % MCV 86.1 (81-99) fL MCH 28.6 (28.0-34.0) pg MCHC 33.2 (30.0-36.0) g/dL RDW 11.9 L (12.1-15.1) % Plt Count 348 (130-400) 10^3/c mm MPV 9.2 (7.4-10.4) fL Neut % (Auto) 53.7 % Lymph % (Auto) 27.2 % [place] % (Auto) 12.4 % Eos % (Auto) 5.4 % Baso % (Auto) 1.0 % Neut # (Auto) 3.28 (1.8-7.7) 10^3/u L Lymph # (Auto) 1.7 (0.8-4.8) 10^3/u L [place] # (Auto) 0.8 (0.2-0.9) 10^3/u L Eos # (Auto) 0.3 (0.0-0.8) 10^3/u L Baso # (Auto) 0.1 (0.0-0.1) 10^3/u L Nucleated RBC % (a uto) 0 % Nucleated RBCs # 0.0 /100WBC Sodium 133 L (136-145) mmol/L Potassium 3.5 (3.5-5.1) mmol/L Chloride 99 (98-107) mmol/L Carbon Dioxide 23 (22-29) mmol/L Anion Gap 14.5 (5-19) BUN 7 (6-20) mg/dL Creatinine 0.8 (0.5-0.9) mg/dL GFR Calculation 86.0 L (90-130) mL/min Glucose 83 (65-115) mg/dL Calculated Osmolal ity 273 L (285-295) mOsm/k g Calcium 8.7 (8.5-10.5) mg/dL Urine Color Dark yellow (Yellow) Urine Appearance Cloudy (CLEAR) Urine pH 5 (5-7) Ur Specific Gravit y 1.025 (1.005-1.030) Urine Protein 1+ H (Negative) Urine Glucose (UA) Norm (Normal) Urine Ketones Negative (Negative) Urine Blood 3+ H (Negative) Urine Nitrate Positive H (Negative) Urine Bilirubin 1+ H (Negative) Urine Urobilinogen 4 H (Negative) mg/dL Ur Leukocyte Debbie ase 2+ H (Negative) Urine RBC 5-10 H (0-2) /hpf Urine WBC Too numerous to c nt H (0-5) /hpf Ur Squamous Epith Cells Rare (0-5) /hpf Amorphous Sediment Not Reportable Urine Bacteria 1+ H (NONE) /hpf Discharge Plan Discharge Patient Disposition: Home Clinical Impression: Pyelonephritis, Candidiasis of vagina Condition: Stable Prescriptions: New Cipro 500 mg tablet 500 mg PO BID Qty: 20 RF: 0 Zofran 4 mg tablet 4 mg PO Q6H PRN (Reason: nausea and vomiting) Qty: 15 RF: 0 Diflucan 150 mg tablet 150 mg PO DAILY Qty: 1 RF: 0 No Action cefdinir 300 mg capsule 300 mg PO Q12H Qty: 60 RF: 2 albuterol sulfate [Ventolin HFA] 90 mcg/actuation HFA aerosol inhaler 2 puff inhalation Q6H PRN (Reason: shortness of breath or wheezing) Qty: 8.5 RF: 0 trazodone 100 mg tablet 100 mg PO BEDTIME PRN (Reason: Insomnia) RF: 0 mecobalamin (vitamin B12) 5,000 mcg lozenge 5,000 mcg PO DAILY RF: 0 ferrous sulfate 325 mg (65 mg iron) tablet 325 mg PO DAILY RF: 0 venlafaxine 150 mg capsule,extended release 24hr 150 mg PO DAILY Qty: 30 RF: 1 baclofen 10 mg tablet 10 mg PO TID PRN (Reason: Muscle Spasm) RF: 0 magnesium oxide 400 mg magnesium Capsule 400 mg PO DAILY RF: 0 hydroxyzine HCl 50 mg tablet 200 mg PO BEDTIME RF: 0 Discharge Orders: Discharge ED (Routine); Ordered 10/11/20 Ordered By: Manuel Coley Referrals: Sis Da Silva DO [Primary Care Provider] - Discharge Diet: Usual diet Discharge Activity: Resume usual activity Patient Instructions: Opioid Safety Coding Level of Care Code ED Estate Manager for Killian Cantu
[2020-10-11 13:59] VITALS: BP 128/82; PULSE 67; RESP 18; O2SAT 96
[2020-10-11 14:12] VITALS: BP 99/66; PULSE 80; RESP 18; TEMP 37.1; O2SAT 100
== END 2020-10-11 14:14 | disposition home or self-care (01) ==
PROVIDERS: Emergency Provider Family Medicine; PCP Internal Medicine
DX: N12 Tubulo-interstitial nephritis, not specified as acute or chronic (principal); B37.3 Candidiasis of vulva and vagina; F17.210 Nicotine dependence, cigarettes, uncomplicated
CPT/HCPCS: 80048; 81001; 85025; 87077; 87086; 87186; 96372; 99283; J0696

== ENCOUNTER 2020-10-31 13:36 | Emergency (ER) | payer SELFPAY ==
[2020-10-31 13:43] VITALS: BP 146/64; PULSE 77; RESP 16; TEMP 36.3; O2SAT 97; BMI 39.6
--- NOTE | 2020-10-31 14:01 | ED_ITS ---
HPI - Female Genitourinary General: Chief complaint: Urogenital-Female Stated complaint: abdominal pain, unable to urinate Time Seen by Provider: 10/31/20 13:50 History of Present Illness: HPI Narrative: Patient is a 25-year-old female comes to the ED with urinary retention. Patient has a past medical history of recurrent UTIs, interstitial cystitis and a neurogenic bladder. Patient was seen here in the ED for UTI complaint back on October 11 and was put on a prescription of Cipro. She has completed the Cipro and is now taking cefdinir. Patient says she has been taking the Cipro and she still having some some mild left flank pain. Patient has been seen by Dr. Ahn in the past. Patient says over the last 24 hours she has only been able to dribble out a little bit of urine. She says her bladder feels full and and that she needs to urinate bad as unable to. She reports a lot of pain and is uncomfortable due to full bladder. Associated symptoms: Deny abdominal pain, headache(s) or nausea Date of Last Menstrual Period: 04/09/20 Review of Systems Const: Denies: fever(s), chills or fatigue Eyes: Denies: change in vision or eye discomfort ENMT: Denies: throat pain, odynophagia, nasal discharge or nasal congestion Card: Denies: chest pain, palpitations, edema, swelling of feet/ankles, dyspn ea on exertion or orthopnea Resp: Denies: dyspnea, productive cough or non-productive cough GI: Denies: abdominal pain, nausea, vomiting, diarrhea, constipation or hematochezia : Reports: flank pain (Mild left leg pain.) and difficulty voiding (Urinary retention); Denies: dysuria or hematuria Musc: Denies: neck pain, back pain or extremity swelling Skin/Breast: Denies: rash or new lesions Neuro: Denies: headache(s), numbness in extremities or weakness in extremities PFSH ED PFSH: Medical History Incomplete bladder emptying Interstitial cystitis Migraine headache Neurogenic bladder PCOS (polycystic ovarian syndrome) Recurrent UTI Seizures Patient still being worked up; was told she might have MS, but another neurologist disagreed Surgical History History of appendectomy History of dental surgery S/P colon resection Ileocecal resection secondary to the presence of a Meckel's diverticulum Family History Father CAD (coronary artery disease) Mother Pancreatitis Social History Smoking and tobacco status: current every day smoker cigarettes Packs smoked per day: 0.75 Years cigarettes smoked: 5 Marital status: Current occupational status: employed 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 History of recent travel: No Female Reproductive History: Date of last menstrual period: 04/09/20 Physical Exam Const: COMMON NORMALS: patient oriented x3 and alert GENERAL APPEARANCE: cooperative and in distress (Patient appears uncomfortable and in pain.); not comfortable (Patient appears uncomfortable and in pain) HENMT: COMMON NORMALS: normocephalic HEAD & SCALP: normocephalic MOUTH: Normal oral and palatal mucosa present THROAT: posterior oropharynx normal and uvula midline Neck/C-Spine: COMMON NORMALS: supple GENERAL: Yes normal visual inspection Resp: COMMON NORMALS: normal respiratory effort, No retractions, No use of accessory muscles and clear to auscultation bilaterally AUSCULTATION: clear to auscultation bilaterally Cardio: COMMON NORMALS: regular rate, regular rhythm, S1 normal heart sound present, S2 normal heart sound present, No gallops present (Cardio), No clicks present (Cardio), No murmurs present (Cardio) and Peripheral pulses 2+ t hroughout RATE: regular rate RHYTHM: regular rhythm HEART SOUNDS: S1 normal heart sound present and S2 normal heart sound present PERIPHERAL PULSES: Peripheral pulses 2+ throughout GI: COMMON NORMALS: Normal to inspection, nondistended, normoactive bowel sounds present, Soft to palpation, non-tender and no masses PALPATION: Yes Soft to palpation and Yes Bladder palpation abnormal : BLADDER/KIDNEY EXAM: Yes Bladder palpation abnormal Bladder abnormal details: tender and distended midway to the umbilicus and Yes CVA tenderness on the left Back/Pelvis: GENERAL BACK: Yes CVA tenderness Extremity: COMMON NORMALS: normal to inspection Neuro: COMMON NORMALS: patient oriented x3 and moves all extremities SENSORIUM/ORIENTATION: Yes alert Skin: GENERAL SKIN EXAM: dry skin Course ED course: French catheter was placed and over 800 mL of urine flowed out. Patient had immediate relief and her pain had improved. Vital Signs: Vital signs: Vital Signs Temperature 97.3 F L 10/31/20 13:43 Pulse Rate 77 10/31/20 13:43 Respiratory Rate 16 10/31/20 16:26 Blood Pressure 146/64 10/31/20 13:43 Pulse Oximetry 97 10/31/20 13:43 MDM - Female MDM Narrative: Medical decision making narrative: Patient is a 25-year-old female comes to the ED with acute urinary retention. Patient has a past medical history of chronic UTIs and neurogenic bladder. She says for the past 24 hours she has not been able to urinate and has only dribbling out some urine when she tries. She feels like her bladder is full and painful and she needs to urinate, but cannot. Exam shows a patient that appears in distress and is uncomfortable. She has some bladder distention and tenderness upon palpation. She has some mild left CVA tenderness as well. CBC, CMP were unremarkable. hCG negative. French catheter was placed and over 800 mL of urine flowed out. Patient felt immediate relief and her pain and discomfort improved greatly. CT of abdomen pelvis showed no acute abdomen/pelvic findings. I placed an order with case management for patient to be referred to Dr. Ahn. Patient was diagnosed with acute urinary retention and she was sent home with a French catheter and leg bag. She was instructed on how to care for French catheter at home. She was told upper caser will contact her in the next several days to set up appointment with Dr. Ahn. She was instructed to continue taking her previously prescribed cefdinir for her UTI. Return ED precautions given. Patient understood agree with plan. Lab Data: Attestation: I reviewed the patient's lab results. Labs: Lab Results 10/31/20 10/31/20 10/31/20 Range/Units 14:30 14:30 14:30 WBC 3.9 L (4.0-10.0) 10^3/ uL RBC 5.38 H (4.1-5.3) 10^6/u L Hgb 15.6 H (11.5-15.3) g/dL Hct 47.2 H (37.0-47.0) % MCV 87.7 (81-99) fL MCH 29.0 (28.0-34.0) pg MCHC 33.1 (30.0-36.0) g/dL RDW 12.2 (12.1-15.1) % Plt Count 214 (130-400) 10^3/c mm MPV 9.9 (7.4-10.4) fL Neut % (Auto) 61.2 % Lymph % (Auto) 25.4 % Wirt % (Auto) 10.4 % Eos % (Auto) 2.0 % Baso % (Auto) 0.5 % Neut # (Auto) 2.40 (1.8-7.7) 10^3/u L Lymph # (Auto) 1.0 (0.8-4.8) 10^3/u L Wirt # (Auto) 0.4 (0.2-0.9) 10^3/u L Eos # (Auto) 0.1 (0.0-0.8) 10^3/u L Baso # (Auto) 0.0 (0.0-0.1) 10^3/u L Nucleated RBC % (a uto) 0 % Nucleated RBCs # 0.0 /100WBC Sodium 136 (136-145) mmol/L Potassium 4.1 (3.5-5.1) mmol/L Chloride 102 (98-107) mmol/L Carbon Dioxide 26 (22-29) mmol/L Anion Gap 12.1 (5-19) BUN 4 L (6-20) mg/dL Creatinine 0.7 (0.5-0.9) mg/dL GFR Calculation 100.4 (90-130) mL/min Glucose 94 (65-115) mg/dL Calculated Osmolal ity 279 L (285-295) mOsm/k g Calcium 8.3 L (8.5-10.5) mg/dL Total Bilirubin 0.3 (0.15-1.2) mg/dL AST 30 (0-32) U/L ALT 38 H (0-33) U/L Alkaline Phosphata se 96 (35-105) IU/L Total Protein 6.6 (6.6-8.7) g/dL Albumin 4.2 (3.5-5.2) g/dL Globulin 2.4 (1.3-4.6) g/dL Lipase 12 L (13-60) U/L HCG, Qual Negative (Negative) Imaging Data: CT Abd/Pel: Attestation: I personally reviewed and interpreted this imaging study as follows: Radiologist's impression: [facility] [address] [address] Scan Report Signed Patient: Rebecca Aguilar Unit #: [id number] : 1995 Age/Sex: 25 / F ADM Date: 10/31/20 Loc: ER Room/Bed: Attending Dr: Ordering Provider/Ordering MD: Wale Duran Date of Service: 10/31/20 Procedure(s): CT abdomen pelvis w con* [id number] Accession Number(s): [id number] Report Number: [id number] PROCEDURE INFORMATION: Exam: CT Abdomen And Pelvis With Contrast Exam date and time: 10/31/2020 4:30 PM Age: 25 years old Clinical indication: Abdominal pain; Localized; Lower; Prior surgery; Surgery date: 6+ months; Surgery type: Appy, colon; Patient HX: HX of recurrent utis and neurogenic bladder C/O difficulty urinating and suprapubic pain; Additional info: Left flank pain, urinary retention TECHNIQUE: Imaging protocol: Computed tomography of the abdomen and pelvis with contrast. Axial, coronal and sagittal reformatted images were created and reviewed. Radiation optimization: All CT scans at this facility use at least one of these dose optimization techniques: automated exposure control; mA and/or kV adjustment per patient size (includes targeted exams where dose is matched to clinical indication); or iterative reconstruction. Contrast material: OMNI 300; Contrast volume: 95 ml; Contrast route: INTRAVENOUS (IV); COMPARISON: CT abdomen pelvis w con* [id number] 06/30/2017 7:58 PM RADIATION DOSE METRICS: Total DLP (mGy-cm): 1695.84 FINDINGS: Lungs: Subtle focus of reticulonodular infiltration in the right lower lobe, suggestive of small airway disease. Liver: Unremarkable. Gallbladder and bile ducts: Status post cholecystectomy. No biliary ductal dilatation. Pancreas: Unremarkable. Spleen: Unremarkable. Adrenal glands: Normal. No mass. Kidneys and ureters: No mass. No radiodense calculi. No hydronephrosis. Stomach and bowel: Evidence of prior ileocolic resection. No definite bowel wall thickening. No obstruction. No pneumatosis. Appendix: Normal. Intraperitoneal space: No free fluid. No organized fluid collection. No free air. Vasculature: Unremarkable. No aneurysm. Lymph nodes: Small mesenteric lymph nodes, nonspecific in appearance. No pathologically enlarged lymph nodes. Urinary bladder: French catheter in the urinary bladder. Reproductive: Unremarkable. Bones/joints: No acute osseous abnormality. Soft tissues: Unremarkable. CT/CT abdomen pelvis w con* [id number]: 1[address] evidence of acute intra-abdominal or pelvic pathology. 2. Additional findings, as above. Radiation Dose CTDIVOL = (mGy): DLP = 1695.84 (mGy-cm) Dictated By: Randell Mcfadden MD Signed By: Randell Mcfadden MD Signed Date/Time: 10/31/201703 DD/ 02 Discharge Plan Discharge Patient Disposition: Home Clinical Impression: Acute urinary retention Condition: Stable Prescriptions: No Action cefdinir 300 mg capsule 300 mg PO Q12H Qty: 60 RF: 2 albuterol sulfate [Ventolin HFA] 90 mcg/actuation HFA aerosol inhaler 2 puff inhalation Q6H PRN (Reason: shortness of breath or wheezing) Qty: 8.5 RF: 0 trazodone 100 mg tablet 100 mg PO BEDTIME PRN (Reason: Insomnia) RF: 0 mecobalamin (vitamin B12) 5,000 mcg lozenge 5,000 mcg PO DAILY RF: 0 ferrous sulfate 325 mg (65 mg iron) tablet 325 mg PO DAILY RF: 0 venlafaxine 150 mg capsule,extended release 24hr 150 mg PO DAILY Qty: 30 RF: 1 baclofen 10 mg tablet 10 mg PO TID PRN (Reason: Muscle Spasm) RF: 0 magnesium oxide 400 mg magnesium Capsule 400 mg PO DAILY RF: 0 hydroxyzine HCl 50 mg tablet 200 mg PO BEDTIME RF: 0 Cipro 500 mg tablet 500 mg PO BID Qty: 20 RF: 0 Zofran 4 mg tablet 4 mg PO Q6H PRN (Reason: nausea and vomiting) Qty: 15 RF: 0 Diflucan 150 mg tablet 150 mg PO DAILY Qty: 1 RF: 0 Discharge Orders: Discharge ED (Routine); Ordered 10/31/20 Ordered By: Wale Duran Referrals: Sis Da Silva, DO [Primary Care Provider] - Discharge Diet: Regular Discharge Activity: Resume usual activity Patient Instructions: Urinary Leg Bag (GEN), Urinary Retention Activity Restrictions/Additional Instructions: Follow-up with medical provider as directed. kosher dietary service manager will be contacting you in the next several days to set up an appointment with Dr. Ahn. Continue taking all home medications as prescribed. The nurse will instruct you on French catheter care and leg bag management. Return to the ER or your medical provider if condition worsens. Please read and understand discharge instructions. Thank you for choosing [facility] for your healthcare needs today. Please realize this is an emergency room and that we are providing you with a medical screening exam and this may not be complete and all inclusive of all the testing and or work up that you may need to determine your ailment or severity of your illness. It is very important that you follow up as instructed or that you return to the Emergency Department should you have concerns or if your condition changes or worsens in any way. Stand Alone Forms: Work/School Release Coding Level of Care Code ED Special Education Preschool Teacher for Chg Fwd Exam Comprehensive
[2020-10-31 14:41] LABS: Basophils % 0.5 %; Eosinophils # 0.1 10^3/uL (0.0-0.8); Hematocrit 47.2 % (37.0-47.0); Hemoglobin 15.6 g/dL (11.5-15.3); Lymphocytes % 25.4 %; Mean Corpuscular HGB Conc 33.1 g/dL (30.0-36.0); Mean Corpuscular Volume 87.7 fL (81-99); Mean Platelet Volume 9.9 fL (7.4-10.4); Monocytes # 0.4 10^3/uL (0.2-0.9); Monocytes % 10.4 %; Neutrophils % 61.2 %; Nucleated Red Blood Cells % 0 %; Platelet Count 214 10^3/cmm (130-400); Red Blood Count 5.38 10^6/uL (4.1-5.3); Red Cell Distribution Width 12.2 % (12.1-15.1); White Blood Count 3.9 10^3/uL (4.0-10.0)
[2020-10-31 14:57] LABS: HCG, Serum Qual Negative (Negative)
[2020-10-31 15:03] LABS: Slide Review Slide Review Perform
[2020-10-31 15:04] LABS: Alanine Aminotransferase 38 U/L (0-33); Albumin Level 4.2 g/dL (3.5-5.2); Alkaline Phosphatase 96 IU/L (35-105); Anion Gap 12.1 (5-19); Aspartate Amino Transferase 30 U/L (0-32); Blood Urea Nitrogen 4 mg/dL (6-20); Calcium 8.3 mg/dL (8.5-10.5); Carbon Dioxide 26 mmol/L (22-29); Chloride 102 mmol/L (98-107); Globulin 2.4 g/dL (1.3-4.6); Glomerular Filtration Rate 100.4 mL/min (90-130); Glucose 94 mg/dL (65-115); Lipase 12 U/L (13-60); Osmolality Calculated 279 mOsm/kg (285-295); Potassium 4.1 mmol/L (3.5-5.1); Sodium 136 mmol/L (136-145); Total Bilirubin 0.3 mg/dL (0.15-1.2); Total Protein 6.6 g/dL (6.6-8.7)
--- NOTE | 2020-10-31 16:14 | CTR_ITS ---
PROCEDURE INFORMATION: Exam: CT Abdomen And Pelvis With Contrast Exam date and time: 10/31/2020 4:30 PM Age: 25 years old Clinical indication: Abdominal pain; Localized; Lower; Prior surgery; Surgery date: 6+ months; Surgery type: Appy, colon; Patient HX: HX of recurrent utis and neurogenic bladder C/O difficulty urinating and suprapubic pain; Additional info: Left flank pain, urinary retention TECHNIQUE: Imaging protocol: Computed tomography of the abdomen and pelvis with contrast. Axial, coronal and sagittal reformatted images were created and reviewed. Radiation optimization: All CT scans at this facility use at least one of these dose optimization techniques: automated exposure control; mA and/or kV adjustment per patient size (includes targeted exams where dose is matched to clinical indication); or iterative reconstruction. Contrast material: OMNI 300; Contrast volume: 95 ml; Contrast route: INTRAVENOUS (IV); COMPARISON: CT abdomen pelvis w con* [id number] 06/30/2017 7:58 PM RADIATION DOSE METRICS: Total DLP (mGy-cm): 1695.84 FINDINGS: Lungs: Subtle focus of reticulonodular infiltration in the right lower lobe, suggestive of small airway disease. Liver: Unremarkable. Gallbladder and bile ducts: Status post cholecystectomy. No biliary ductal dilatation. Pancreas: Unremarkable. Spleen: Unremarkable. Adrenal glands: Normal. No mass. Kidneys and ureters: No mass. No radiodense calculi. No hydronephrosis. Stomach and bowel: Evidence of prior ileocolic resection. No definite bowel wall thickening. No obstruction. No pneumatosis. Appendix: Normal. Intraperitoneal space: No free fluid. No organized fluid collection. No free air. Vasculature: Unremarkable. No aneurysm. Lymph nodes: Small mesenteric lymph nodes, nonspecific in appearance. No pathologically enlarged lymph nodes. Urinary bladder: French catheter in the urinary bladder. Reproductive: Unremarkable. Bones/joints: No acute osseous abnormality. Soft tissues: Unremarkable. CT/CT abdomen pelvis w con* [id number]: 1[address] No CT evidence of acute intra-abdominal or pelvic pathology. 2. Additional findings, as above. Radiation Dose CTDIVOL = (mGy): DLP = 1695.84 (mGy-cm)
[2020-10-31] MEDS: ondansetron 2 mg/ML SDV 2 mL 4 MG IVP (16:25)
[2020-10-31 16:26] VITALS: RESP 16
[2020-10-31] MEDS: HYDROmorphone 1 mg/mL INJ 1 mL IVP (16:26)
[2020-10-31] MEDS: sodium chloride 0.9% 1,000 ML 999 ML IV (16:27)
[2020-10-31] MEDS: iohexol 300 mg/mL 100 mL Btl IV (16:38)
--- NOTE | 2020-11-02 10:46 | DCPLANNER ---
global project manager had message to schedule a follow up appointment for patient with Dr. Ahn. global project manager called the ortho clinic, spoke with Edel, gave clinic patients information. global project manager was told that patients information would be printed and reviewed. Clinic will call patient with appointment information.
--- NOTE | 2020-11-03 13:00 | DCPLANNER ---
Patient has a follow up appointment scheduled for Thursday, November 12, [address] xochitl [address] Ahn. Clinic will call patient with appointment information.
--- NOTE | 2020-12-28 11:51 | DCPLANNER ---
Patient had a follow up appointment scheduled with Dr. Ahn - patient did attend appointment.
== END 2020-10-31 17:32 | disposition home or self-care (01) ==
PROVIDERS: Emergency Provider Physician Assistant; PCP Internal Medicine
DX: R33.9 Retention of urine, unspecified (principal); Z87.440 Personal history of urinary (tract) infections; F17.210 Nicotine dependence, cigarettes, uncomplicated
CPT/HCPCS: 74177; 80053; 83690; 84703; 85025; 96361; 96374; 96375; 99283; J1170; J2405; J7030; Q9967

== ENCOUNTER → 2020-11-24 16:32 | Outpatient (BNVA) | payer SELFPAY | PROVIDERS: PCP Internal Medicine; Visit Provider Nurse Practitioner Family | DX: N39.0 Urinary tract infection, site not specified (principal) | CPT/HCPCS: 81003; 87086 ==

== ENCOUNTER → 2020-12-01 10:24 | Outpatient (BNVA) | payer SELFPAY | PROVIDERS: PCP Internal Medicine; Referring Provider Registered Nurse Neonatal Intensive Care; Visit Provider Orthopaedic Surgery | DX: M25.511 Pain in right shoulder (principal) | CPT/HCPCS: 73030 ==

== ENCOUNTER 2021-01-05 14:06 | Emergency (ER) | payer SELFPAY ==
[2021-01-05 14:30] VITALS: BP 121/72; PULSE 114; RESP 24; TEMP 36.8; O2SAT 98
== END 2021-01-05 16:26 | disposition left against medical advice (07) ==
LOC: ER 14:30
PROVIDERS: Emergency Provider Family Medicine; PCP Internal Medicine
DX: Z53.21 Procedure and treatment not carried out due to patient leaving prior to being seen by health care provider (principal)
CPT/HCPCS: 99281

== ENCOUNTER 2021-05-17 11:29 | Emergency (ER) | payer MEDICAID, SELFPAY ==
[2021-05-17 11:54] VITALS: BP 121/79; PULSE 86; RESP 18; TEMP 37.4; O2SAT 100; BMI 37.8
--- NOTE | 2021-05-17 13:12 | US_ITS ---
WS: [id number] ULTRASOUND EARLY TECHNIQUE: Transabdominal sonography of the pelvis was performed. Followed by transvaginal sonography to better evaluate the uterus and ovaries. CLINICAL INFORMATION: eval for viable preg LMP: 04/10/2021 Beta hCG: Unknown. COMPARISON: None. FINDINGS: UTERUS AND GESTATIONAL SAC Single intrauterine gestational sac measuring 6.7 mm with yolk sac. No visualized pole. No subc horionic hemorrhage. OVARIES Right ovary: Normal. Left ovary: Normal. FREE FLUID None. US/US OB <=14 wk fetus w transvag IMPRESSION: 1. Intrauterine gestational sac with yolk sac. No visualized cardiac activity or pole in this very early . Recommend short-term follow-up to a ssess viability. 2. Estimated gestational age; 5w4d 3. Normal ovaries and adnexa.
--- NOTE | 2021-05-17 13:19 | W.ED.GENADLT ---
HPI - General Adult General: Chief complaint: Allergic Reaction Stated complaint: rash pt states poss side affect to rh- shot Time Seen by Provider: 05/17/21 11:50 History of Present Illness: HPI narrative: Patient is a 25-year-old female G7, P6 has had 6 prior miscarriages, neurogenic bladder requiring self-cath, migraines, chronic back pain on baclofen and recurrent pyelonephritis presenting to the emergency room with concerns for back pain and pelvic cramping x 1 day. Patient was previously evaluated at [facility] for concerns of vaginal bleeding on 05/14/2021. At that point time, patient was given RhoGam and instructed to follow-up closely with an OB provider. Since then, patient denies any significant vaginal bleeding. Patient has reported that she has noticed a different vaginal discharge. Onset:1 day ago Duration:1 day Location:home Severity:moderate Review of Systems Narrative: Constitutional: No fever, no chills. HEENT: No vision changes CV: No chest pain, no palpitations PULM: no cough, no dyspnea. GI: +Lower abdominal pain, no N/V/D. : No dysuria MSKEL: No muscle pain SKIN: No new rashes, no lesions. NEURO: No headache, no focal weakness. HEME: No visible bruises PSYCH: Normal mood BACK: +L paraspinal back pain PFSH ED PFSH: Medical History Incomplete bladder emptying Interstitial cystitis Migraine headache Neurogenic bladder PCOS (polycystic ovarian syndrome) Recurrent UTI Seizures Patient still being worked up; was told she might have MS, but another neurologist disagreed Surgical History History of appendectomy History of dental surgery S/P colon resection Ileocecal resection secondary to the presence of a Meckel's diverticulum Family History Father CAD (coronary artery disease) Mother Pancreatitis Social History Marital status: Current occupational status: employed 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 NO guarding rebound, guarding, rigidity. No CVA tenderness to percussion. Neg Welsh/Neg McBurney's point tenderness, no suprabupic tenderness to palpation. EXTREMITY: Normal ROM SKIN: No rash or erythema NEURO: Awake and alert, no focal motor deficits PSYCH: Normal mood and affect : Exam supervised by juan Escalante External genitalia wnl. No erythema around cervical os, os closed, +mild vaginal discharge, no bleeding. BACK: +paraspinal lumbar tenderness L Course Vital Signs: Vital signs: Vital Signs Temperature 99.4 F 05/17/21 11:54 Pulse Rate 86 05/17/21 11:54 Respiratory Rate 18 05/17/21 11:54 Blood Pressure 121/79 05/17/21 11:54 Pulse Oximetry 100 05/17/21 11:54 MDM - General Adult MDM Narrative: Medical decision making narrative: 25-year-old female presenting to the emergency room with complaints of lower abdominal pain and left-sided back pain. Lab work showed white count of 9.6. UA numerous squamous cell. Patient is noted to have 15-25 WBCs per high-power field. However given lower abdominal pain, decision was made in conjunction with patient and treated for UTI. Patient has an allergy to amoxicillin. Given the fact the patient is , decision was made to start patient on Keflex. Do not suspect the patient has pyelonephritis despite the back pain. Patient has is afebrile, has no active vomiting or leukocytosis. Patient's beta-hCG appears to be trending in the right direction. Patient has appoint with OB provider. US confirms IUP. I have given patient follow up with our human resources district manager to be seen by our outpatient rheumatology provider for evaluation of facial and arm erythema. Patient has a hx of neurological disorder including MS. Patient to see Rheumatology to evaluate for related SLE. Patient aware of a call from our human resources district manager to schedule for appointment(s) and verbalizes understanding of the importance of following up. Rx cephalexin BID x 7 days for possible UTI in the setting of Disposition: Discharge. Patient counseled regarding diagnostic impression, treatment plan. Patient given ED strict return precautions to return for continuation, worsening, or development of new symptoms. Instructed to f/u w/ PCP and OB provider regarding symptoms today. Patient verbalized understanding. Lab Data: Labs: Lab Results 05/17/21 05/17/21 05/17/21 12:14 14:02 15:30 WBC 9.6 10^3/uL 10^3/ uL (4.0-10.0) RBC 4.32 10^6/uL 10^6 /uL (4.1-5.3) Hgb 12.7 g/dL g/dL (11.5-15.3) Hct 37.9 % % (37.0-47.0) MCV 87.7 fl fl (81-99) MCH 29.4 pg pg (28.0-34.0) MCHC 33.5 g/dL g/dL (30.0-36.0) RDW 11.7 % L % (12.1-15.1) Plt Count 358 10^3/cmm 10^3 /cmm (130-400) MPV 9.3 fL fL (7.4-10.4) Neut % (Auto) 52.0 % % Lymph % (Auto) 37.4 % % [place] % (Auto) 8.5 % % Eos % (Auto) 1.6 % % Baso % (Auto) 0.3 % % Neut # (Auto) 5.00 10^3/uL 10^3 /uL (1.8-7.7) Lymph # (Auto) 3.6 10^3/uL 10^3/ uL (0.8-4.8) [place] # (Auto) 0.8 10^3/uL 10^3/ uL (0.2-0.9) Eos # (Auto) 0.2 10^3/uL 10^3/ uL (0.0-0.8) Baso # (Auto) 0.0 10^3/uL 10^3/ uL (0.0-0.1) Nucleated RBC % (a uto) 0 % % Nucleated RBCs # 0.0 /100WBC /100W BC Sodium Potassium Chloride Carbon Dioxide Anion Gap BUN Creatinine GFR Calculation Glucose Calculated Osmolal ity Calcium Total Bilirubin AST ALT Alkaline Phosphata se Total Protein Albumin Globulin Lipase TSH Free T4 Ser , Shona i-Qnt Urine Color Yellow (Yellow) Urine Appearance Cloudy (CLEAR) Urine pH 6.5 (5-7) Ur Specific Gravit y 1.020 (1.005-1.030) Urine Protein Neg (Negative) Urine Glucose (UA) Norm (Normal) Urine Ketones Negative (Negative) Urine Blood Neg (Negative) Urine Nitrate Negative (Negative) Urine Bilirubin Neg (Negative) Urine Urobilinogen Norm mg/dL mg/dL (Negative) Ur Leukocyte Debbie ase 2+ H (Negative) Urine RBC Not Reportable Urine WBC 10-15 /hpf H /hpf (0-5) Ur Squamous Epith Cells 15-25 /hpf H /hpf (0-5) Ur Renal Epithelia l Cell 1+ /hpf /hpf Calcium Oxalate Cr ystal 5-10 /hpf H /hpf Amorphous Sediment Not Reportable Urine Bacteria 1+ /hpf H /hpf (NONE) Hyaline Casts 0-4 /lpf H /lpf Urine Mucus 3+ /hpf /hpf Blood Type O Negative Rho(D) Type Negative 05/17/21 05/17/21 15:30 15:30 WBC RBC Hgb Hct MCV MCH MCHC RDW Plt Count MPV Neut % (Auto) Lymph % (Auto) [place] % (Auto) Eos % (Auto) Baso % (Auto) Neut # (Auto) Lymph # (Auto) [place] # (Auto) Eos # (Auto) Baso # (Auto) Nucleated RBC % (a uto) Nucleated RBCs # Sodium 140 mmol/L mmol/L (136-145) Potassium 3.5 mmol/L mmol/L (3.5-5.1) Chloride 107 mmol/L mmol/L (98-107) Carbon Dioxide 19 mmol/L L mmol/ L (22-29) Anion Gap 17.5 (5-19) BUN 4 mg/dL L mg/dL (6-20) Creatinine 0.5 mg/dL mg/dL (0.5-0.9) GFR Calculation 148.0 mL/min H mL /min (90-130) Glucose 97 mg/dL mg/dL (65-115) Calculated Osmolal ity 287 mOsm/kg mOsm/ kg (285-295) Calcium 7.9 mg/dL L mg/dL (8.5-10.5) Total Bilirubin 0.2 mg/dL mg/dL (0.15-1.2) AST 11 U/L U/L (0-32) ALT 28 U/L U/L (0-33) Alkaline Phosphata se 71 IU/L IU/L (35-105) Total Protein 5.8 g/dL L g/dL (6.6-8.7) Albumin 4.0 g/dL g/dL (3.5-5.2) Globulin 1.8 g/dL g/dL (1.3-4.6) Lipase 48 U/L U/L (13-60) TSH 0.48 uIU/mL uIU/m L (0.27-4.20) Free T4 1.05 ng/dL ng/dL (0.82-1.77) Ser , Shona i-Qnt 2659.00 mIU/mL mI U/mL Urine Color Urine Appearance Urine pH Ur Specific Gravit y Urine Protein Urine Glucose (UA) Urine Ketones Urine Blood Urine Nitrate Urine Bilirubin Urine Urobilinogen Ur Leukocyte Debbie ase Urine RBC Urine WBC Ur Squamous Epith Cells Ur Renal Epithelia l Cell Calcium Oxalate Cr ystal Amorphous Sediment Urine Bacteria Hyaline Casts Urine Mucus Blood Type Rho(D) Type Imaging Data^: Other Imaging: Radiologist's impression: [address] [id number] ReportSigned Patient: Rebecca Aguilar #: [id number]: [id number]#:[id number]/Sex: 25 / FADM Date: 05/17/21Loc: ERRoom/Bed:Attending Dr: Ordering Provider/Ordering MD: Yuko Walters MD Date of Service: 05/17/21 Procedure(s): US OB <=14 wk fetus w transvag Accession Number(s): [id number] Report Number: [id number]: [id number] ULTRASOUND EARLY TECHNIQUE: Transabdominal sonography of the pelvis was performed. Followed by transvaginal sonography to better evaluate the uterus and ovaries. CLINICAL INFORMATION: eval for viable preg LMP: 04/10/2021 Beta hCG: Unknown. COMPARISON: None. FINDINGS: UTERUS AND GESTATIONAL SAC Single intrauterine gestational sac measuring 6.7 mm with yolk sac. No visualized pole. No subchorionic hemorrhage. OVARIES Right ovary: Normal. Left ovary: Normal. FREE FLUID None. US/US OB <=14 wk fetus w transvag IMPRESSION: 1. Intrauterine gestational sac with yolk sac. No visualized cardiac activity or pole in this very early . Recommend short-term follow-up to assess viability. 2. Estimated gestational age; 5w4d 3. Normal ovaries and adnexa. Dictated By:Yousif Handley MDSigned By:Yousif Handley MDSigned Date/Time:05/17/21 1504DD/ 1500 Discharge Plan Discharge Patient Disposition: Home Clinical Impression: Back pain, , UTI (urinary tract infection) Condition: Stable Prescriptions: New cephalexin 500 mg capsule 500 mg PO BID 7 Days Qty: 14 RF: 0 No Action cefdinir 300 mg capsule 300 mg PO Q12H Qty: 60 RF: 2 albuterol sulfate [Ventolin HFA] 90 mcg/actuation HFA aerosol inhaler 2 puff inhalation Q6H PRN (Reason: shortness of breath or wheezing) Qty: 8.5 RF: 0 trazodone 100 mg tablet 100 mg PO BEDTIME PRN (Reason: Insomnia) RF: 0 mecobalamin (vitamin B12) 5,000 mcg lozenge 5,000 mcg PO DAILY RF: 0 ferrous sulfate 325 mg (65 mg iron) tablet 325 mg PO DAILY RF: 0 venlafaxine 150 mg capsule,extended release 24hr 150 mg PO DAILY Qty: 30 RF: 1 baclofen 10 mg tablet 10 mg PO TID PRN (Reason: Muscle Spasm) RF: 0 magnesium oxide 400 mg magnesium Capsule 400 mg PO DAILY RF: 0 hydroxyzine HCl 50 mg tablet 200 mg PO BEDTIME RF: 0 Zofran 4 mg tablet 4 mg PO Q6H PRN (Reason: nausea and vomiting) Qty: 15 RF: 0 Discharge Orders: Discharge ED (Routine); Ordered 05/17/21 Ordered By: Yuko Walters Referrals: Sis Da Silva DO [Primary Care Provider] - Discharge Diet: Advance as tolerated Discharge Activity: Resume usual activity Patient Instructions: (ED) Activity Restrictions/Additional Instructions: Our human resources district manager will have you follow-up with an gas stove servicer helper in the next few days. You would be expected to have a phone call with our human resources district manager who will put you on the schedule. Please follow-up with your OB doctor tomorrow morning. Come back to emergency with any more pelvic cramps, vaginal bleeding, flank pain, fever/chills, any new extreme complaints. I believe that you may have a urinary tract infection. I do not like to get pyelonephritis but come back to the emergency room if you are having worsening flank pain, fever/chills, nausea/vomiting, or decreased food tolerance. Your C is [id number] Please take your antibiotics as instructed. Watch out for signs of skin changes/redness, mouth redeness or swelling, nausea/vomiting, diarrhea, blood in the urine or any new or concering complaints. Coding Level of Care Code ED Director Utilization Management for Killian Cantu
[2021-05-17 14:52] LABS: Charge for UA Resulting for Rev
[2021-05-17 14:58] LABS: Add Urine Microscopic? YES; Bilirubin Urine Neg (Negative); Blood Urine Neg (Negative); Glucose Urine UA Norm (Normal); Ketones Urine Negative (Negative); Leukocyte Esterase Urine 2+ (Negative); Nitrate Urine Negative (Negative); Protein Urine Neg (Negative); Urine Appearance Cloudy (CLEAR); Urine Color Yellow (Yellow); Urobilinogen Urine Norm (Negative); pH Urine 6.5 (5-7)
[2021-05-17 15:17] LABS: Bacteria Urine 1+ /hpf; Other Sediment, Urine 1+
[2021-05-17 15:18] LABS: Add Urine Culture? No; Hyaline Casts Urine 0-4 /lpf; Mucus Urine 3+ /hpf; Renal Epithelial Cells Urine 1+ /hpf; Squamous Epithelial Cell Urine 15-25 /hpf (0-5)
[2021-05-17 15:37] LABS: Basophils % 0.3 %; Eosinophils # 0.2 10^3/uL (0.0-0.8); Eosinophils % 1.6 %; Hematocrit 37.9 % (37.0-47.0); Hemoglobin 12.7 g/dL (11.5-15.3); Lymphocytes # 3.6 10^3/uL (0.8-4.8); Lymphocytes % 37.4 %; Mean Corpuscular HGB Conc 33.5 g/dL (30.0-36.0); Mean Corpuscular Hemoglobin 29.4 pg (28.0-34.0); Mean Corpuscular Volume 87.7 fl (81-99); Mean Platelet Volume 9.3 fL (7.4-10.4); Monocytes # 0.8 10^3/uL (0.2-0.9); Monocytes % 8.5 %; Nucleated Red Blood Cells % 0 %; Platelet Count 358 10^3/cmm (130-400); Red Blood Count 4.32 10^6/uL (4.1-5.3); Red Cell Distribution Width 11.7 % (12.1-15.1); White Blood Count 9.6 10^3/uL (4.0-10.0)
[2021-05-17 16:16] LABS: Alanine Aminotransferase 28 U/L (0-33); Alkaline Phosphatase 71 IU/L (35-105); Anion Gap 17.5 (5-19); Aspartate Amino Transferase 11 U/L (0-32); Blood Urea Nitrogen 4 mg/dL (6-20); Calcium 7.9 mg/dL (8.5-10.5); Carbon Dioxide 19 mmol/L (22-29); Chloride 107 mmol/L (98-107); Globulin 1.8 g/dL (1.3-4.6); Glucose 97 mg/dL (65-115); Lipase 48 U/L (13-60); Osmolality Calculated 287 mOsm/kg (285-295); Potassium 3.5 mmol/L (3.5-5.1); Sodium 140 mmol/L (136-145); Total Bilirubin 0.2 mg/dL (0.15-1.2); Total Protein 5.8 g/dL (6.6-8.7)
[2021-05-17 16:17] LABS: Free T4 Free Thyroxine 1.05 ng/dL (0.82-1.77); Thyroid Stimulating Hormone 0.48 uIU/mL (0.27-4.20)
[2021-05-17 17:00] VITALS: BP 118/79; PULSE 80; RESP 16; O2SAT 100
--- NOTE | 2021-05-19 13:46 | DCPLANNER ---
manager intern had message to schedule a follow up appointment for patient with [facility]. manager intern called the [facility], spoke with Shay, gave clinic patients information. manager intern was told that patients information will be printed and reviewed. Clinic will call patient with appointment information.
--- NOTE | 2021-05-19 15:47 | DCPLANNER ---
Addendum entered by Shy Sharp 06/28/21 15:18: nursing agency manager called the rheumatology clinic, spoke with Eliana, to confirm if an appointment had been scheduled for patient. nursing agency manager was told that the person that did referrals was out of the office at the moment, but that a message would be left for Helen about this referral. Original Note: nursing agency manager had message to refer patient to rheumatology. nursing agency manager called the Rheumatology clinic, spoke with Helen, gave clinic patients information. nursing agency manager was told that patients information would be printed and reviewed. Clinic will call patient with appointment information.
--- NOTE | 2021-05-20 08:33 | DCPLANNER ---
Patient was seen on 05.18.21 with LIQUID COMPOUNDER, Lisa Justice at [facility].
== END 2021-05-17 17:24 | disposition home or self-care (01) ==
PROVIDERS: Emergency Provider Emergency Medicine; PCP Internal Medicine
DX: O26.891 Other specified pregnancy related conditions, first trimester (principal); O23.41 Unspecified infection of urinary tract in pregnancy, first trimester; N39.0 Urinary tract infection, site not specified; M54.9 Dorsalgia, unspecified; Z3A.01 Less than 8 weeks gestation of pregnancy; Z87.440 Personal history of urinary (tract) infections
CPT/HCPCS: 76801; 76817; 80053; 81001; 81003; 83690; 84439; 84443; 84702; 85025; 86900; 87491; 87591; 87661; 99283

== ENCOUNTER → 2021-05-18 13:00 | Outpatient (BNVA) | payer MEDICAID, SELFPAY | PROVIDERS: PCP Internal Medicine; Visit Provider Nurse Practitioner Women's Health | DX: O20.0 Threatened abortion (principal); N92.6 Irregular menstruation, unspecified | CPT/HCPCS: 81025 ==

== ENCOUNTER 2021-05-19 11:37 | Outpatient (CLI) | payer MEDICAID, SELFPAY | END 2021-05-19 11:38 | disposition home or self-care (01) | PROVIDERS: PCP Internal Medicine; Visit Provider Nurse Practitioner Women's Health | DX: O20.0 Threatened abortion (principal) | CPT/HCPCS: 36415; 84702 ==

== ENCOUNTER 2021-06-26 15:20 | Emergency (ER) | payer MEDICAID, SELFPAY ==
[2021-06-26 15:59] VITALS: BP 134/83; PULSE 92; RESP 18; TEMP 36.6; O2SAT 100; BMI 37.7
[2021-06-26 16:39] LABS: Add Urine Microscopic? YES; Bilirubin Urine Neg (Negative); Blood Urine Neg (Negative); Glucose Urine UA Norm (Normal); Ketones Urine Negative (Negative); Leukocyte Esterase Urine 2+ (Negative); Nitrate Urine Negative (Negative); Protein Urine Neg (Negative); Urine Appearance SL Hazy (CLEAR); Urine Color Yellow (Yellow); Urobilinogen Urine Norm (Negative); pH Urine 6 (5-7)
[2021-06-26 16:41] LABS: Squamous Epithelial Cell Urine 25-40 /hpf (0-5); WBC Urine 15-25 /hpf (0-5)
[2021-06-26 16:42] LABS: Add Urine Culture? No; Bacteria Urine 1+ /hpf
[2021-06-26 19:33] VITALS: BP 139/77; PULSE 92; RESP 16; O2SAT 97
--- NOTE | 2021-06-26 19:49 | USR_ITS ---
PROCEDURE INFORMATION: Exam: US First Trimester, Transabdominal and US , Transvaginal Exam date and time: 06/26/2021 7:49 PM Age: 26 years old Clinical indication: complicated by abdominal or pelvic pain; Left lower quadrant; First trimester (<14 weeks 0 days); Gestational age or lmp: 11w0d; ; Patient HX: PT has dx of pcos. ; Additional info: Eval transabd for viable preg TECHNIQUE: Imaging protocol: Real-time transabdominal obstetrical ultrasound of the maternal pelvis and a first trimester , less than 14 weeks 0 days, with image documentation. Transvaginal imaging was used for better evaluation of the fetus, adnexa, and/or cervix. Total images: 45 COMPARISON: US OB transvaginal [facility] 05/31/2021 9:00 AM FINDINGS: Gestation: Single live intrauterine gestation. age by crown rump length 11 weeks 1 day. Embryonic/ heart rate: cardiac activity at 167 bpm. Extra-embryonic membranes/Placenta: Tiny subchorionic fluid collection, potential hemorrhage, at the fundus measuring only 16 mm x 4 mm x 10 mm. Second lower uterine segment subchorionic fluid collection, potential hemorrhage, measuring only 21 mm x 3 mm x 21 mm. Posterior placenta. BIOMETRY: Gestational age (AUA): 11 weeks 1 day. Estimated due date (AUA): SUE 01/14/2022. MATERNAL: Uterus: Anteverted gravid uterus dimensions 11.3 cm x 5.8 cm x 8 cm. Cervix: Cervical length 3.6 cm. Internal os closed. Right ovary/adnexa: Right ovary sonographically normal. Dimensions of the right ovary 3 cm x 1.8 cm x 2.4 cm. Positive arterial flow right ovary to both color and Doppler assessment. No visible right adnexal mass or cystic lesion. Left ovary/adnexa: Left ovary sonographically normal. Positive arterial flow to both color and Doppler assessment. Dimensions of the left ovary 2.9 cm x 2.8 cm x 2.8 cm. No visible left adnexal mass or cystic lesion. Intraperitoneal space: No free fluid the cul-de-sac identified. US/US OB <= 14 weeks fetus [id number] IMPRESSION: 1. Single live intrauterine gestation with positive cardiac activity a measured age by crown rump length 11 weeks 1 day. 2. Two potential very tiny slivers of subchorionic fluid, potential hemorrhage.
[2021-06-26] MEDS: acetaminophen 500 mg Tablet PO (20:10)
[2021-06-26] MEDS: cefTRIAXone 1,000 MG in sodium chloride 0.9% (plus) 50 ML 100 MG IV (20:10)
--- NOTE | 2021-06-26 20:23 | W.ED.GENADLT ---
HPI - General Adult General: Chief complaint: Abdominal Pain Stated complaint: 10 wks , cramping, n/v Time Seen by Provider: 06/26/21 19:15 History of Present Illness: HPI narrative: Patient is a 26-year-old female with a history of PCOS, irregular cycles with recurrent prior miscarriages presenting to the emergency room with complaints of significant increase in frequency and pain from pelvic cramp since yesterday night. Patient has had intermittent none regular contractions since yesterday night. Patient denies any vaginal discharge or vaginal bleeding. No complaints of urinary symptoms. Patient was diagnosed with UTI recently and another emergency room but has not started any antibiotics. Patient denies any flank pain. Patient has a history of hyperemesis gravidarum for which she is on Zofran every 4 hours. Patient is not sure whether she has early signs of pyelonephritis for the nausea and vomiting. Denies that her contractions regular or tetanic. She has no vaginal bleeding, spotting, passage of clots, or any other complaints. Onset: 1 night ago Duration:ongoing Location:home Severity: moderate Associated symptoms: Deny chest pain, dyspnea, nausea, rash, palpitations or vomiting Review of Systems Const: Denies: fever(s) or chills Eyes: Denies: change in vision ENMT: Denies: mouth pain Card: Denies: chest pain or palpitations Resp: Denies: dyspnea or non-productive cough GI: Denies: abdominal pain, nausea, vomiting or diarrhea : Reports: other (pelvic cramps); Denies: dysuria Musc: Denies: extremity pain Skin/Breast: Denies: rash or new lesions Neuro: Denies: weakness in extremities Psych: Reports: other (Normal mood) Jimmy/Lymph: Denies: easy bruising PFS ED PFSH: Medical History Incomplete bladder emptying Interstitial cystitis Migraine headache with aura Neurogenic bladder Intermittent self cathing--->managed by Ahn-- Urology No pertinent past medical history neghx: htn,dm,thyroid,dvt/pe PCP: None PCOS (polycystic ovarian syndrome) diagnosed at 12 y/o Recurrent UTI Seizures Patient still being worked up; was told she might have MS, but another neurologist disagreed. Stammering/stuttering Surgical History History of appendectomy History of dental surgery Hx of cholecystectomy (~04/2020) S/P colon resection (~2011) Ileocecal resection secondary to the presence of a Meckel's diverticulum. Performed at [facility] with a [facility] provider. Family History Father Diabetes Heart disease Hypertension Mother Thyroid disease Family/Other No problems noted. Grandfather Diabetes Paternal Hypertension Paternal Grandmother Hypertension Paternal Thyroid disease Maternal Denies family history of Colon cancer Ovarian cancer Hypercholesteremia Breast cancer Uterine cancer Stroke Female Reproductive History: Date of last menstrual period: 03/23/22 : 8 Physical Exam Const: COMMON NORMALS: alert HENMT: COMMON NORMALS: atraumatic HEAD & SCALP: atraumatic MOUTH: moist mucous membranes not abnormal Eye: COMMON NORMALS: EOMs intact bilaterally and conjunctivae normal CONJUNCTIVA: Yes conjunctivae normal Neck/C-Spine: COMMON NORMALS: full ROM and supple Resp: COMMON NORMALS: normal respiratory effort and clear to auscultation bilaterally AUSCULTATION: clear to auscultation bilaterally Cardio: COMMON NORMALS: regular rate RATE: regular rate GI: COMMON NORMALS: Soft to palpation and non-tender PALPATION: Yes Soft to palpation : OTHER: Exam supervised by Juliana External genitalia duran. No erythema around cervical os, os closed, +discharge in the vaginal vault, no bleeding. No CMT, no adnexal tenderness. Extremity: COMMON NORMALS: full ROM Neuro: SENSORIUM/ORIENTATION: Yes alert MOTOR EXAM: No Abnormal motor strength present and Other motor observations present (no focal motor deficits) Psych: COMMON NORMALS: speech normal SPEECH: Yes normal speech MOOD & AFFECT: Yes euthymic mood Course Vital Signs: Vital signs: Vital Signs Temperature 97.9 F 06/26/21 15:59 Pulse Rate 78 06/26/21 21:33 Respiratory Rate 16 06/26/21 21:33 Blood Pressure 138/66 06/26/21 21:33 Pulse Oximetry 100 06/26/21 21:33 MDM - General Adult MDM Narrative: Medical decision making narrative: 26-year-old female G 10 P1 with multiple previous miscarriages presenting the emergency room with pelvic cramps since yesterday night. On exam, patient has no signs of active bleeding. Cough appears to be closed Will evaluate with US and [facility] Patient received ceftriaxone for concerns of pyeloenpehritis. It is unlikely patient is well-appearing white count reassuring. Patient is able to tolerate p.o. without any difficulty. Positive urine findings and not currently on any antibiotics, she most likely have UTI versus early pyelonephritis. She is requesting abx to go home with for early pyelonephritis. Patient has no complaints of vaginal bleeding. Ultrasound confirmed IUP. Patient is noted to have a two areas of subchorionic fluid w/ possible hemorrhage. Patient has reassuring vitals, is not actively bleeding vaginally. H&H appears to be stable at 14.0. I have discussed case with Dr. Solis who agrees that patient needs close followup. She has an OB doctor for which she sees regularly at [facility] and she plans to follow up with the specialist. She has a copy of her ultrasound report and she plans to follow-up with his provider. Discharged noted on vaginal exam but previously on 05/17 patient was swabbed for GI and chlamdyia and was negative for both. I have given patient follow up with our case loader operator to be seen by Dr. Solis in case patient cannot follow up with her OB provider. Patient aware of a call from our case loader operator to schedule for appointment(s) and verbalizes understanding of the importance of following up. Rx cepahlexin Q6Hrs for early pyeloenpehritis, carie/zofran PRN nausea/vomiting, tylenol PRN pain Disposition: Discharge. Patient counseled regarding diagnostic impression, treatment plan. Patient given ED strict return precautions to return for continuation, worsening, or development of new symptoms. Instructed to f/u w/ PCP regarding symptoms today. Patient verbalized understanding. Lab Data: Labs: Lab Results 06/26/21 06/26/21 16:05 22:20 WBC 11.7 10^3/uL H 10 ^3/uL (4.0-10.0) RBC 4.67 10^6/uL 10^6 /uL (4.1-5.3) Hgb 14.0 g/dL g/dL (11.5-15.3) Hct 41.3 % % (37.0-47.0) MCV 88.4 fl fl (81-99) MCH 30.0 pg pg (28.0-34.0) MCHC 33.9 g/dL g/dL (30.0-36.0) RDW 13.0 % % (12.1-15.1) Plt Count 327 10^3/cmm 10^3 /cmm (130-400) MPV 9.6 fL fL (7.4-10.4) Neut % (Auto) 63.3 % % Lymph % (Auto) 30.0 % % [place] % (Auto) 5.8 % % Eos % (Auto) 0.4 % % Baso % (Auto) 0.2 % % Neut # (Auto) 7.37 10^3/uL 10^3 /uL (1.8-7.7) Lymph # (Auto) 3.5 10^3/uL 10^3/ uL (0.8-4.8) [place] # (Auto) 0.7 10^3/uL 10^3/ uL (0.2-0.9) Eos # (Auto) 0.1 10^3/uL 10^3/ uL (0.0-0.8) Baso # (Auto) 0.0 10^3/uL 10^3/ uL (0.0-0.1) Nucleated RBC % (a uto) 0 % % Nucleated RBCs # 0.0 /100WBC /100W BC Urine Color Yellow (Yellow) Urine Appearance Sl hazy (CLEAR) Urine pH 6 (5-7) Ur Specific Gravit y 1.020 (1.005-1.030) Urine Protein Neg (Negative) Urine Glucose (UA) Norm (Normal) Urine Ketones Negative (Negative) Urine Blood Neg (Negative) Urine Nitrate Negative (Negative) Urine Bilirubin Neg (Negative) Urine Urobilinogen Norm mg/dL mg/dL (Negative) Ur Leukocyte Debbie ase 2+ H (Negative) Urine RBC None /hpf /hpf (0-2) Urine WBC 15-25 /hpf H /hpf (0-5) Ur Squamous Epith Cells 25-40 /hpf H /hpf (0-5) Amorphous Sediment Not Reportable Urine Bacteria 1+ /hpf H /hpf (NONE) Imaging Data^: Other Imaging: Radiologist's impression: [email or web address] [address]Ieketpbcdt ReportSigned Patient: Rebecca Aguilar #: [id number]: 1995Acct#:[id number]/Sex: 26 / FADM Date: 06/26/21Loc: ERRoom/Bed:Attending Dr: Ordering Provider/Ordering MD: Yuko Walters MD Date of Service: 06/26/21 Procedure(s): US OB <= 14 weeks fetus [id number] Accession Number(s): [id number] Report Number: [id number] PROCEDURE INFORMATION: Exam: US First Trimester, Transabdominal and US , Transvaginal Exam date and time: 06/26/2021 7:49 PM Age: 26 years old Clinical indication: complicated by abdominal or pelvic pain; Left lower quadrant; First trimester (<14 weeks 0 days); Gestational age or lmp: 11w0d; ; Patient HX: PT has dx of pcos. ; Additional info: Eval transabd for viable preg TECHNIQUE: Imaging protocol: Real-time transabdominal obstetrical ultrasound of the maternal pelvis and a first trimester , less than 14 weeks 0 days, with image documentation. Transvaginal imaging was used for better evaluation of the fetus, adnexa, and/or cervix. Total images: 45 COMPARISON: US OB transvaginal [facility] 05/31/2021 9:00 AM FINDINGS: Gestation: Single live intrauterine gestation. age by crown rump length 11 weeks 1 day. Embryonic/ heart rate: cardiac activity at 167 bpm. Extra-embryonic membranes/Placenta: Tiny subchorionic fluid collection, potential hemorrhage, at the fundus measuring only 16 mm x 4 mm x 10 mm. Second lower uterine segment subchorionic fluid collection, potential hemorrhage, measuring only 21 mm x 3 mm x 21 mm. Posterior placenta. BIOMETRY: Gestational age (AUA): 11 weeks 1 day. Estimated due date (AUA): SUE 01/14/2022. MATERNAL: Uterus: Anteverted gravid uterus dimensions 11.3 cm x 5.8 cm x 8 cm. Cervix: Cervical length 3.6 cm. Internal os closed. Right ovary/adnexa: Right ovary sonographically normal. Dimensions of the right ovary 3 cm x 1.8 cm x 2.4 cm. Positive arterial flow right ovary to both color and Doppler assessment. No visible right adnexal mass or cystic lesion. Left ovary/adnexa: Left ovary sonographically normal. Positive arterial flow to both color and Doppler assessment. Dimensions of the left ovary 2.9 cm x 2.8 cm x 2.8 cm. No visible left adnexal mass or cystic lesion. Intraperitoneal space: No free fluid the cul-de-sac identified. US/US OB <= 14 weeks fetus [id number] IMPRESSION: 1. Single live intrauterine gestation with positive cardiac activity a measured age by crown rump length 11 weeks 1 day. 2. Two potential very tiny slivers of subchorionic fluid, potential hemorrhage. Dictated By:Isma Reza By:Isma Reza Date/Time:06/26/21D/ 48 Discharge Plan Discharge Patient Disposition: Home Clinical Impression: UTI (urinary tract infection), Pelvic cramping Condition: Stable Prescriptions: New Zofran 4 mg tablet 4 mg PO TID PRN (Reason: nausea and vomiting) 4 Days Qty: 12 RF: 0 acetaminophen 500 mg tablet 500 mg PO Q6H PRN (Reason: pain) 5 Days Qty: 20 RF: 0 carie (Zingiber officinalis) 250 mg capsule 250 mg PO QID PRN (Reason: nausea and vomiting) 8 Days Qty: 32 RF: 0 cephalexin 500 mg capsule 500 mg PO Q6H 7 Days Qty: 28 RF: 0 No Action cefdinir 300 mg capsule 300 mg PO Q12H Qty: 60 RF: 2 albuterol sulfate [Ventolin HFA] 90 mcg/actuation HFA aerosol inhaler 2 puff inhalation Q6H PRN (Reason: shortness of breath or wheezing) Qty: 8.5 RF: 0 trazodone 100 mg tablet 100 mg PO BEDTIME PRN (Reason: Insomnia) RF: 0 ferrous sulfate 325 mg (65 mg iron) tablet 325 mg PO DAILY RF: 0 baclofen 10 mg tablet 10 mg PO TID PRN (Reason: Muscle Spasm) RF: 0 Discharge Orders: Discharge ED (Routine); Ordered 06/26/21 Ordered By: Yuko Walters Referrals: Sis Da Silva, [Primary Care Provider] - Discharge Diet: Advance as tolerated Discharge Activity: Increase activity as tolerated Patient Instructions: Dysuria (ED), Abdominal Pain in (ED) Activity Restrictions/Additional Instructions: Please take your antibiotics as instructed. Watch out for signs of skin changes/redness, mouth redeness or swelling, nausea/vomiting, diarrhea, blood in the urine or any new or concerning complaints. Please follow-up with your OB doctor for further evaluation of your . [address] [address]Iynxwpjdwa ReportSigned Patient: Rebecca Aguilar #: [id number]: 1995Acct#:[id number]/Sex: 26 / FADM Date: 06/26/21Loc: ERRoom/Bed:Attending Dr: Ordering Provider/Ordering MD: Yuko Walters MD Date of Service: 06/26/21 Procedure(s): US OB <= 14 weeks fetus [id number] Accession Number(s): [id number] Report Number: [id number] PROCEDURE INFORMATION: Exam: US First Trimester, Transabdominal and US , Transvaginal Exam date and time: 06/26/2021 7:49 PM Age: 26 years old Clinical indication: complicated by abdominal or pelvic pain; Left lower quadrant; First trimester (<14 weeks 0 days); Gestational age or lmp: 11w0d; ; Patient HX: PT has dx of pcos. ; Additional info: Eval transabd for viable preg TECHNIQUE: Imaging protocol: Real-time transabdominal obstetrical ultrasound of the maternal pelvis and a first trimester , less than 14 weeks 0 days, with image documentation. Transvaginal imaging was used for better evaluation of the fetus, adnexa, and/or cervix. Total images: 45 COMPARISON: US OB transvaginal [facility] 05/31/2021 9:00 AM FINDINGS: Gestation: Single live intrauterine gestation. age by crown rump length 11 weeks 1 day. Embryonic/ heart rate: cardiac activity at 167 bpm. Extra-embryonic membranes/Placenta: Tiny subchorionic fluid collection, potential hemorrhage, at the fundus measuring only 16 mm x 4 mm x 10 mm. Second lower uterine segment subchorionic fluid collection, potential hemorrhage, measuring only 21 mm x 3 mm x 21 mm. Posterior placenta. BIOMETRY: Gestational age (AUA): 11 weeks 1 day. Estimated due date (AUA): SUE 01/14/2022. MATERNAL: Uterus: Anteverted gravid uterus dimensions 11.3 cm x 5.8 cm x 8 cm. Cervix: Cervical length 3.6 cm. Internal os closed. Right ovary/adnexa: Right ovary sonographically normal. Dimensions of the right ovary 3 cm x 1.8 cm x 2.4 cm. Positive arterial flow right ovary to both color and Doppler assessment. No visible right adnexal mass or cystic lesion. Left ovary/adnexa: Left ovary sonographically normal. Positive arterial flow to both color and Doppler assessment. Dimensions of the left ovary 2.9 cm x 2.8 cm x 2.8 cm. No visible left adnexal mass or cystic lesion. Intraperitoneal space: No free fluid the cul-de-sac identified. US/US OB <= 14 weeks fetus [id number] IMPRESSION: 1. Single live intrauterine gestation with positive cardiac activity a measured age by crown rump length 11 weeks 1 day. 2. Two potential very tiny slivers of subchorionic fluid, potential hemorrhage. Dictated By:Isma Reza By:Isma Reza Date/Time:06/26/21 2202DD/ 48 Coding Level of Care Code ED [employer] Sales Representative for Chg Fwd Exam Comprehensive
[2021-06-26 21:33] VITALS: BP 138/66; PULSE 78; RESP 16; O2SAT 100
[2021-06-26 22:29] LABS: Basophils % 0.2 %; Eosinophils # 0.1 10^3/uL (0.0-0.8); Eosinophils % 0.4 %; Hematocrit 41.3 % (37.0-47.0); Lymphocytes # 3.5 10^3/uL (0.8-4.8); Mean Corpuscular HGB Conc 33.9 g/dL (30.0-36.0); Mean Corpuscular Volume 88.4 fl (81-99); Mean Platelet Volume 9.6 fL (7.4-10.4); Monocytes # 0.7 10^3/uL (0.2-0.9); Monocytes % 5.8 %; Neutrophils # 7.37 10^3/uL (1.8-7.7); Neutrophils % 63.3 %; Nucleated Red Blood Cells % 0 %; Platelet Count 327 10^3/cmm (130-400); Red Blood Count 4.67 10^6/uL (4.1-5.3); White Blood Count 11.7 10^3/uL (4.0-10.0)
[2021-06-26 22:50] LABS: Anion Gap 19.9 (5-19); Blood Urea Nitrogen 5 mg/dL (6-20); Calcium 9.6 mg/dL (8.5-10.5); Carbon Dioxide 21 mmol/L (22-29); Chloride 99 mmol/L (98-107); Glomerular Filtration Rate 190.1 mL/min (90-130); Glucose 81 mg/dL (65-115); Osmolality Calculated 278 mOsm/kg (285-295); Potassium 3.9 mmol/L (3.5-5.1); Sodium 136 mmol/L (136-145)
--- NOTE | 2021-06-27 09:26 | DCPLANNER ---
Addendum entered by Shy Sharp 07/25/21 15:31: plant health manager spoke with Shay at [facility], was told that clinic was unable to reach patient, a letter was sent to patient stating for patient to call clinic to schedule an appointment. Original Note: plant health manager had message to schedule a follow up appointment for patient with [facility]. plant health manager called the [facility] care clinic, spoke with Shay, gave clinic patients information. Patients information will be printed and reviewed. Clinic will call patient with appointment information.
--- NOTE | 2021-06-28 15:20 | DCPLANNER ---
Addendum entered by Syh Sharp 07/25/21 15:33: The clinic called case investigator, stating that the clinic will call patients primary care clinic to gather more information, patients chart will be reviewed and clinic will patient with appointment information. Original Note: crane manager had message to refer patient to rheumatology. crane manager has already referred patient to rheumatology from a previous visit. crane manager called the clinic, spoke with Eliana, a message will be left with Helen about this referral.
== END 2021-06-26 22:30 | disposition home or self-care (01) ==
PROVIDERS: Nurse Practitioner Family; Emergency Provider Emergency Medicine; PCP Internal Medicine
DX: O23.41 Unspecified infection of urinary tract in pregnancy, first trimester (principal); N39.0 Urinary tract infection, site not specified; Z3A.10 10 weeks gestation of pregnancy
CPT/HCPCS: 36415; 76801; 80048; 81001; 84702; 85025; 96365; 99284; J0696

== ENCOUNTER 2021-08-22 20:15 | Emergency (ER) | payer MEDICAID, SELFPAY ==
[2021-08-22 20:18] VITALS: BP 136/47; PULSE 100; RESP 18; TEMP 36.7; O2SAT 96; BMI 38.4
--- NOTE | 2021-08-22 21:03 | ED_ITS ---
HPI - General: Chief complaint: Vaginal Bleeding Stated complaint: 19 weeks preg-bleeding Time Seen by Provider: 08/22/21 21:01 History of Present Illness: Ms. Aguilar is a 26-year-old lady currently approximately 17 weeks who presents to the emergency department due to vaginal bleeding. Additionally she has had a number of week history of nausea vomiting which has become intractable today. She endorses generalized abdominal cramping with radiation to the back. Earlier today she went to urinate and noticed red blood which was somewhat right on her toilet paper. She has had urination since that time and only trace amounts of blood with vaginal discharge. She denies associated urinary symptoms. She denies blood in stool or changes in bowel movements. Emesis is nonbloody. Overall course of symptoms has been worsening. Intensity is moderate. No other specific changes in health, exacerbating, or alleviating factors identified. Onset (ago): hour(s) Pain Consistency: intermittent Location: abdomen Severity: moderate Quality: Cramping Vaginal bleeding: light Date of Last Menstrual Period: 03/23/22 Patient : Yes Review of Systems General: Reports: 10 or more systems reviewed and unremarkable except in HPI and below PFSH ED PFSH: Medical History Incomplete bladder emptying Interstitial cystitis Migraine headache with aura Neurogenic bladder Intermittent self cathing--->managed by Ahn-- Urology No pertinent past medical history neghx: htn,dm,thyroid,dvt/pe PCP: None PCOS (polycystic ovarian syndrome) diagnosed at 12 y/o Recurrent UTI Seizures Patient still being worked up; was told she might have MS, but another neurologist disagreed. Stammering/stuttering Surgical History History of appendectomy History of dental surgery Hx of cholecystectomy (~04/2020) S/P colon resection (~2011) Ileocecal resection secondary to the presence of a Meckel's diverticulum. Performed at [facility] with a [facility] provider. Family History Father Diabetes Heart disease Hypertension Mother Thyroid disease Family/Other No problems noted. Grandfather Diabetes Paternal Hypertension Paternal Grandmother Hypertension Paternal Thyroid disease Maternal Denies family history of Colon cancer Ovarian cancer Hypercholesteremia Breast cancer Uterine cancer Stroke Female Reproductive History: Date of last menstrual period: 03/23/22 Physical Exam Const: COMMON NORMALS: alert GENERAL APPEARANCE: cooperative, well developed and ill appearing (Mildly) HENMT: COMMON NORMALS: normocephalic and atraumatic HEAD & SCALP: normocephalic and atraumatic Eye: COMMON NORMALS: conjunctivae normal CONJUNCTIVA: Yes conjunctivae normal SCLERA: sclerae normal Neck/C-Spine: COMMON NORMALS: supple GENERAL: Yes trachea midline Resp: COMMON NORMALS: normal respiratory effort EFFORT & INSPECTION: Yes able to speak in complete sentences Cardio: COMMON NORMALS: regular rhythm RATE: tachycardic RHYTHM: regular rhythm GI: COMMON NORMALS: Soft to palpation PALPATION: Yes Soft to palpation and No Tenderness to palpation present (GI) PERCUSSION: normal to percussion : OTHER: Performed with drawing machine operator present. External genitalia appear unremarkable. Vagina without blood observed. Cervix appears visually closed. Extremity: GENERAL: Yes normal exam except as noted and No edema Neuro: COMMON NORMALS: moves all extremities SENSORIUM/ORIENTATION: Yes alert and No Orientation impaired Psych: COMMON NORMALS: mental status grossly normal and Normal thought process present THOUGHT PROCESS: Normal thought process present Course ED course: - Patient was seen and evaluated by me at bedside - Patient placed on cardiac monitors, IV access obtained - Initial evaluation notable for exam as above - Labs personally interpreted by me -Antiemetic given - Labs notable for mild leukocytosis of unclear etiology. Metabolic panel with evidence of mild dehydration. Initial urinalysis with concerns epithelial contamination. Repeat without evidence of infection - Given patient's reported bright red blood and current gestational age believe that repeat ultrasound is warranted to rule out bowling center/center. Imaging notable for no acute abnormality identified, fundal position placenta. (Ultrasound read was not completed at time of discharge however I personally reviewed images and discussed this with the patient. vRADs clinical volume results in delay. I offered choice for the patient to either wait or be discharged and I would call if the patient needed to return. She preferred discharge as opposed to uncertain amount of further time in the emergency department. - Upon serial reexamination after treatment the patient was improved - Based on patient history, evaluation, and testing as interpreted the most likely cause of the patient's condition is threatened miscarriage along with mild dehydration secondary to nausea and vomiting which improved with treatment. - The results of ED evaluation were discussed with the patient including prescriptions and/or symptomatic cares (if applicable) including appropriate and responsible use, followup plan, and return precautions. The patient verbalized understanding and felt safe for discharge. - Patient discharged in satisfactory condition. Note: Click bubbles or prepopulated zarate in note writing are used for assistance with data collection and billing and are inherently more limited than narrative and other text portions of this note. Please use narrative for additional clinical history and defer to narrative/free test for any case of contradictory information. If information appears in only free text or click bubble it should be considered present or absent as reported. Please contact note sheet writer for clarifications of clinical information or contradictory information. MDM is a brief summary, contradictory or erroneous seeming information should be clarified and full note should be reviewed. Vital Signs: Vital signs: Vital Signs Temperature 98.5 F 08/23/21 00:49 Pulse Rate 87 08/23/21 00:49 Respiratory Rate 16 08/23/21 00:49 Blood Pressure 119/81 08/23/21 00:49 Pulse Oximetry 98 08/23/21 00:49 MDM - OB/Uterine Contractions Medical Decision Making 26-year-old lady currently approximately 19 weeks presenting with vaginal bleeding along with nausea and vomiting. Patient improved with symptomatic treatment. Labs with mild dehydration. Ultrasound unremarkable. Satisfactory for outpatient management. Medical Records I reviewed the patient's medical records. Lab Data I reviewed the patient's lab results. : 08/22/21 21:28 08/22/21 21:28 Radiology Impressions Obstetrics Ultrasound 08/22/21 21:17 IMPRESSION: 1. Single live intrauterine gestation with no acute abnormality identified. 2. growth pattern is grossly unremarkable and relatively concordant with previously estimated gestational age. 3. Follow-up ultrasound survey of anatomy is recommended in 1-3 weeks. Laboratory Results WBC 13.3 10^3/uL (4.0-10.0) H 08/22/21 21: RBC 4.16 10^6/uL (4.1-5.3) 08/22/21 21:28 Hgb 12.9 g/dL (11.5-15.3) 08/22/21 21: Hct 37.9 % (37.0-47.0) 08/22/21 21: MCV 91.1 fl (81-99) 08/22/21: MCH 31.0 pg (28.0-34.0) 08/22/21: MCHC 34.0 g/dL (30.0-36.0) 08/22/21: RDW 13.6 % (12.1-15.1) 08/22/21: Plt Count 327 10^3/cmm (130-400) 08/22/21: MPV 9.7 fL (7.4-10.4) 08/22/21: Neut % (Auto) 81.2 % 08/22/21: Lymph % (Auto) 12.3 % 08/22/21: [place] % (Auto) 5.3 % 08/22/21 Eos % (Auto) 0.2 % 08/22/21 Baso % (Auto) 0.2 % 08/22/21 Neut # (Auto) 10.82 10^3/uL (1.8-7.7) H 08/22/21: Lymph # (Auto) 1.6 10^3/uL (0.8-4.8) 08/22/21: [place] # (Auto) 0.7 10^3/uL (0.2-0.9) 08/22/21: Eos # (Auto) 0.0 10^3/uL (0.0-0.8) 08/22/21 Baso # (Auto) 0.0 10^3/uL (0.0-0.1) 08/22/21 Nucleated RBC % (auto) 0 % 08/22/21 Nucleated RBCs # 0.0 /100WBC 08/22/21 Sodium 135 mmol/L (136-145) L 08/22/21: Potassium 4.2 mmol/L (3.5-5.1) 08/22/21: Chloride 101 mmol/L (98-107) 08/22/21: Carbon Dioxide 21 mmol/L (22-29) L 08/22/21: Anion Gap 17.2 (5-19) 08/22/21: BUN 9 mg/dL (6-20) 08/22/21: Creatinine 0.6 mg/dL (0.5-0.9) 08/22/21 GFR Calculation 119.0 mL/min (90-130) 08/22/21: Glucose 106 mg/dL (65-115) 08/22/21 Calculated Osmolality 279 mOsm/kg (285-295) L 08/22/21: Calcium 9.5 mg/dL (8.5-10.5) 08/22/21: Total Bilirubin 0.2 mg/dL (0.15-1.2) 08/22/21 AST 19 U/L (0-32) 08/22/21 ALT 25 U/L (0-33) 08/22/21 Alkaline Phosphatase 68 IU/L (35-105) 08/22/21: Total Protein 7.2 g/dL (6.6-8.7) 08/22/21: Albumin 4.3 g/dL (3.5-5.2) 08/22/21: Globulin 2.9 g/dL (1.3-4.6) 08/22/21: Lipase 15 U/L (13-60) 08/22/21: Urine Color Yellow (Yellow) 08/23/21 00:05 Urine Appearance Clear (CLEAR) 08/23/21 00:05 Urine pH 5 (5-7) 08/23/21 00:05 Ur Specific [place] 1.025 (1.005-1.030) 08/23/21 00:05 Urine Protein Neg (Negative) 08/23/21 00:05 Urine Glucose (UA) Norm (Normal) 08/23/21 00:05 Urine Ketones 1+ (Negative) H 08/23/21 00:05 Urine Blood Neg (Negative) 08/23/21 00:05 Urine Nitrate Negative (Negative) 08/23/21 00:05 Urine Bilirubin Neg (Negative) 08/23/21 00:05 Urine Urobilinogen Norm mg/dL (Negative) 08/23/21 00:05 Ur Leukocyte Esterase Negative (Negative) 08/23/21 00:05 Urine RBC 0-4 /hpf (0-2) H 08/22/21 21:26 Urine WBC 15-25 /hpf (0-5) H 08/22/21 21:26 Ur Squamous Epith Cells 40-55 /hpf (0-5) H 08/22/21 21:26 Amorphous Sediment Not Reportable 08/22/21 21:26 Urine Bacteria 2+ /hpf (NONE) H 08/22/21 21:26 Urine Mucus 3+ /hpf 08/22/21 21:26 Blood Type O Negative 08/22/21 22:45 Rho(D) Type Negative 08/22/21 22:45 Antibody Screen Negative 08/22/21 22:45 Discharge Plan Discharge Patient Disposition: Home Clinical Impression: Abdominal pain during , Vaginal bleeding during Condition: Stable Prescriptions: New Reglan 10 mg tablet 10 mg PO Q6H PRN (Reason: nausea and vomiting) Qty: 10 0RF Rx Instructions: do not take with zofran No Action cefdinir 300 mg capsule 300 mg PO Q12H Qty: 60 2RF albuterol sulfate [Ventolin HFA] 90 mcg/actuation HFA aerosol inhaler 2 puff inhalation Q6H PRN (Reason: shortness of breath or wheezing) Qty: 8.5 0RF trazodone 100 mg tablet 100 mg PO BEDTIME PRN (Reason: Insomnia) 0RF ferrous sulfate 325 mg (65 mg iron) tablet 325 mg PO DAILY 0RF baclofen 10 mg tablet 10 mg PO TID PRN (Reason: Muscle Spasm) 0RF Discharge Orders: Discharge ED (Routine); Ordered 08/22/21 Ordered By: Spencer Matos Referrals: Sis Da Silva DO [Primary Care Provider] - Discharge Diet: Usual diet Discharge Activity: Resume usual activity Patient Instructions: Threatened Miscarriage (ED), Abdominal Pain (ED), Abdominal Pain in (ED), Opioid Safety Activity Restrictions/Additional Instructions: Thank you for visiting the emergency department. You were seen and evaluated for vaginal bleeding and abdominal pain during and associated with nausea and vomiting. The exact cause of your symptoms is unclear however does not appear to need hospitalization at this time. Please follow-up with your primary care provider and audit analyst this week. Return to the emergency department for worsening symptoms or anything else that you are concerned about and feel needs emergency department evaluation. 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
--- NOTE | 2021-08-22 21:17 | USR_ITS ---
PROCEDURE INFORMATION: Exam: US , Limited Exam date and time: 08/22/2021 10:01 PM Age: 26 years old Clinical indication: Lmp or gestational age (in weeks): 19w2d; Other: Bleeding; complicated by abdominal or pelvic pain; Generalized abdominal pain; Second trimester (14 weeks 0 days to 27 weeks 6 days); ; Additional info: Bleeding, cramping, approx 19 weeks TECHNIQUE: Imaging protocol: Real-time ultrasound of the maternal uterus with image documentation. Exam focused on the clinical indication. COMPARISON: US OB <= 14 weeks fetus [id number] 06/26/2021 8:50 PM FINDINGS: Gestation: Single live intrauterine gestation. heart rate: heart rate 133 bpm. presentation: Cephalic presentation. Placenta: Fundal position of the placenta without previa or abruption. Amniotic fluid index: Amniotic fluid index measures 7.67 cm. BIOMETRY: Gestational age (AUA): Estimated gestational age based on the current biometry is 19 weeks, 4 days. Previously estimated gestational age 19 weeks, 2 days. Head circumference: Head circumference 16.54 cm. Forty-first percentile. Femur length (FL): Femur length 3.18 cm. Sixty-sixth percentile. US/US OB >=14 wk fetus w transvag IMPRESSION: 1. Single live intrauterine gestation with no acute abnormality identified. 2. growth pattern is grossly unremarkable and relatively concordant with previously estimated gestational age. 3. Follow-up ultrasound survey of anatomy is recommended in 1-3 weeks.
[2021-08-22 21:35] LABS: Basophils % 0.2 %; Eosinophils % 0.2 %; Hematocrit 37.9 % (37.0-47.0); Hemoglobin 12.9 g/dL (11.5-15.3); Lymphocytes # 1.6 10^3/uL (0.8-4.8); Lymphocytes % 12.3 %; Mean Corpuscular Volume 91.1 fl (81-99); Mean Platelet Volume 9.7 fL (7.4-10.4); Monocytes # 0.7 10^3/uL (0.2-0.9); Monocytes % 5.3 %; Neutrophils # 10.82 10^3/uL (1.8-7.7); Neutrophils % 81.2 %; Nucleated Red Blood Cells % 0 %; Platelet Count 327 10^3/cmm (130-400); Red Blood Count 4.16 10^6/uL (4.1-5.3); Red Cell Distribution Width 13.6 % (12.1-15.1); White Blood Count 13.3 10^3/uL (4.0-10.0)
[2021-08-22] MEDS: acetaminophen 500 mg Tablet 1000 MG PO (21:46)
[2021-08-22] MEDS: sodium chloride 0.9% 1,000 ML 999 ML IV ×2 (21:47→23:40)
[2021-08-22] MEDS: metoclopramide 5 mg/mL SDV 2 mL 10 MG IVP (21:48)
[2021-08-22 21:58] LABS: Add Urine Culture? No; Add Urine Microscopic? YES; Bacteria Urine 2+ /hpf; Bilirubin Urine Neg (Negative); Blood Urine Neg (Negative); Glucose Urine UA Norm (Normal); Ketones Urine Negative (Negative); Leukocyte Esterase Urine Trace (Negative); Mucus Urine 3+ /hpf; Nitrate Urine Negative (Negative); Protein Urine 1+ (Negative); RBC Urine 0-4 /hpf (0-2); Specific Gravity, Urine 1.025 (1.005-1.030); Squamous Epithelial Cell Urine 40-55 /hpf (0-5); Urine Appearance Hazy (CLEAR); Urine Color Yellow (Yellow); Urobilinogen Urine 1 mg/dL (Negative); WBC Urine 15-25 /hpf (0-5); pH Urine 5 (5-7)
[2021-08-22 22:02] LABS: Alanine Aminotransferase 25 U/L (0-33); Albumin Level 4.3 g/dL (3.5-5.2); Alkaline Phosphatase 68 IU/L (35-105); Anion Gap 17.2 (5-19); Aspartate Amino Transferase 19 U/L (0-32); Blood Urea Nitrogen 9 mg/dL (6-20); Calcium 9.5 mg/dL (8.5-10.5); Carbon Dioxide 21 mmol/L (22-29); Chloride 101 mmol/L (98-107); Globulin 2.9 g/dL (1.3-4.6); Glucose 106 mg/dL (65-115); Lipase 15 U/L (13-60); Osmolality Calculated 279 mOsm/kg (285-295); Potassium 4.2 mmol/L (3.5-5.1); Sodium 135 mmol/L (136-145); Total Bilirubin 0.2 mg/dL (0.15-1.2); Total Protein 7.2 g/dL (6.6-8.7)
[2021-08-22] MEDS: ondansetron 2 mg/ML SDV 2 mL 4 MG IVP (23:39)
[2021-08-23 00:10] VITALS: BP 128/89; PULSE 90; RESP 16; TEMP 37.1; O2SAT 99
[2021-08-23 00:15] LABS: Add Urine Microscopic? NO; Charge for UA Resulting for Rev
[2021-08-23 00:18] LABS: Bilirubin Urine Neg (Negative); Blood Urine Neg (Negative); Glucose Urine UA Norm (Normal); Ketones Urine 1+ (Negative); Leukocyte Esterase Urine Negative (Negative); Nitrate Urine Negative (Negative); Protein Urine Neg (Negative); Specific Gravity, Urine 1.025 (1.005-1.030); Urine Appearance Clear (CLEAR); Urine Color Yellow (Yellow); Urobilinogen Urine Norm (Negative); pH Urine 5 (5-7)
[2021-08-23 00:28] VITALS: BP 119/81; BP 128/89; PULSE 87; PULSE 90; RESP 16; TEMP 36.9; TEMP 37.1; O2SAT 98; O2SAT 99
[2021-08-23 00:49] VITALS: BP 119/81; PULSE 87; RESP 16; TEMP 36.9; O2SAT 98
== END 2021-08-23 00:35 | disposition home or self-care (01) ==
PROVIDERS: Emergency Medicine; Emergency Provider Emergency Medicine; PCP Internal Medicine
DX: O46.92 Antepartum hemorrhage, unspecified, second trimester (principal); O26.892 Other specified pregnancy related conditions, second trimester; R10.9 Unspecified abdominal pain; Z3A.19 19 weeks gestation of pregnancy
CPT/HCPCS: 36430; 76805; 76817; 80053; 81001; 81003; 83690; 85025; 86850; 86900; 87070; 87205; 87210; 90384; 96361; 96374; 96375; 99284; J2405; J2765; J7030

== ENCOUNTER 2021-10-21 03:48 | Outpatient (CLI) | payer MEDICAID, SELFPAY ==
[2021-10-21 03:48] VITALS: BMI 40.9
[2021-10-21 04:04] VITALS: BP 124/67; PULSE 87
[2021-10-21 04:20] VITALS: BP 119/62; PULSE 89
[2021-10-21 04:34] VITALS: BP 115/61; PULSE 93
[2021-10-21 04:41] LABS: Urine Appearance Clear (CLEAR)
[2021-10-21 04:42] LABS: Bilirubin Urine Neg (Negative); Blood Urine 2+ (Negative); Glucose Urine UA Trace (Normal); Ketones Urine Negative (Negative); Leukocyte Esterase Urine 1+ (Negative); Nitrate Urine Positive (Negative); Protein Urine 1+ (Negative); Specific Gravity, Urine 1.015 (1.005-1.030); Urine Color Straw (Yellow); Urobilinogen Urine Norm (Negative); pH Urine 7 (5-7)
[2021-10-21 04:43] LABS: Add Urine Culture? No; Bacteria Urine TRACE /hpf; RBC Urine 0-4 /hpf (0-2); Squamous Epithelial Cell Urine 15-25 /hpf (0-5)
[2021-10-21 04:48] VITALS: TEMP 36.6
[2021-10-21 04:49] VITALS: BP 124/65; PULSE 87
== END 2021-10-21 04:58 | disposition home or self-care (01) ==
LOC: OPOB 03:52 → OBGYN 03:54
PROVIDERS: PCP Internal Medicine; Visit Provider Obstetrics & Gynecology
DX: O26.899 Other specified pregnancy related conditions, unspecified trimester (principal); Z3A.00 Weeks of gestation of pregnancy not specified; R10.9 Unspecified abdominal pain
CPT/HCPCS: 59025; 81001; 99211

== ENCOUNTER 2021-12-16 00:17 | Day surgery (SDC) | payer MEDICAID, SELFPAY ==
[2021-12-15] VITALS (15 sets, daily range): BP systolic 123–161; BP diastolic 60–97; PULSE 100–122; RESP 17; TEMP 36.2; O2SAT 97–100; BMI 41.5
[2021-12-15 22:57] LABS: Bacteria Urine TRACE /hpf; Bilirubin Urine 1+ (Negative); Blood Urine Neg (Negative); Glucose Urine UA 1+ (Normal); Ketones Urine 1+ (Negative); Leukocyte Esterase Urine Negative (Negative); Mucus Urine 4+ /hpf; Nitrate Urine Negative (Negative); Protein Urine 1+ (Negative); RBC Urine 0-4 /hpf (0-2); Squamous Epithelial Cell Urine 40-55 /hpf (0-5); Urine Appearance Turbid (CLEAR); Urine Color Dark Yellow (Yellow); Urobilinogen Urine 4 mg/dL (Negative); pH Urine 5 (5-7)
[2021-12-15 22:58] LABS: Add Urine Culture? No; Coarse Granular Casts Urine 0-4 /lpf; Hyaline Casts Urine 0-4 /lpf
[2021-12-15 23:34] LABS: Basophils % 0.2 %; Eosinophils % 0.1 %; Hematocrit 37.2 % (37.0-47.0); Hemoglobin 12.7 g/dL (11.5-15.3); Lymphocytes # 2.1 10^3/uL (0.8-4.8); Mean Corpuscular HGB Conc 34.1 g/dL (30.0-36.0); Mean Corpuscular Hemoglobin 28.5 pg (28.0-34.0); Mean Corpuscular Volume 83.6 fl (81-99); Mean Platelet Volume 9.8 fL (7.4-10.4); Monocytes # 0.8 10^3/uL (0.2-0.9); Monocytes % 5.2 %; Neutrophils # 11.77 10^3/uL (1.8-7.7); Nucleated Red Blood Cells % 0 %; Platelet Count 428 10^3/cmm (130-400); Red Blood Count 4.45 10^6/uL (4.1-5.3); Red Cell Distribution Width 11.4 % (12.1-15.1); White Blood Count 14.7 10^3/uL (4.0-10.0)
[2021-12-15] MEDS: metoclopramide 5 mg/mL SDV 2 mL 10 MG IVP (23:40)
[2021-12-15] MEDS: dextrose 5%-lactated ringers 1,000 ML 999 ML IV (23:40)
[2021-12-15] MEDS: ondansetron 2 mg/ML SDV 2 mL 4 MG IVP (23:40)
[2021-12-15 23:56] LABS: Urine Creatinine 348 mg/dL (28-217)
[2021-12-16] VITALS (43 sets, daily range): BP systolic 107–152; BP diastolic 56–87; PULSE 88–151; RESP 16; TEMP 36.9; O2SAT 97–99
[2021-12-16 00:02] LABS: Alanine Aminotransferase 37 U/L (0-33); Albumin Level 3.8 g/dL (3.5-5.2); Alkaline Phosphatase 238 IU/L (35-105); Anion Gap 19.9 (5-19); Aspartate Amino Transferase 24 U/L (0-32); Blood Urea Nitrogen 6 mg/dL (6-20); Calcium 9.2 mg/dL (8.5-10.5); Carbon Dioxide 18 mmol/L (22-29); Chloride 99 mmol/L (98-107); Globulin 3.6 g/dL (1.3-4.6); Glucose 113 mg/dL (65-115); Osmolality Calculated 274 mOsm/kg (285-295); Potassium 3.9 mmol/L (3.5-5.1); Sodium 133 mmol/L (136-145); Total Bilirubin 0.3 mg/dL (0.15-1.2); Total Protein 7.4 g/dL (6.6-8.7); Uric Acid 4.3 mg/dL (2.4-5.7)
[2021-12-16 00:09] LABS: UPRO/UCREAT Ratio 0.64 mg/mg CR; Urine Protein Random 222 mg/dL
[2021-12-16] MEDS: dextrose 5%-sod chloride 0.9% 1,000 ML 200 ML IV ×2 (01:28→06:02)
[2021-12-16 05:28] LABS: Basophils % 0.1 %; Eosinophils % 0.1 %; Hematocrit 30.6 % (37.0-47.0); Hemoglobin 10.6 g/dL (11.5-15.3); Lymphocytes # 2.1 10^3/uL (0.8-4.8); Lymphocytes % 18.2 %; Mean Corpuscular HGB Conc 34.6 g/dL (30.0-36.0); Mean Corpuscular Volume 83.6 fl (81-99); Monocytes # 0.5 10^3/uL (0.2-0.9); Monocytes % 4.8 %; Neutrophils # 8.65 10^3/uL (1.8-7.7); Neutrophils % 76.3 %; Nucleated Red Blood Cells % 0 %; Platelet Count 383 10^3/cmm (130-400); Red Blood Count 3.66 10^6/uL (4.1-5.3); Red Cell Distribution Width 11.4 % (12.1-15.1); White Blood Count 11.3 10^3/uL (4.0-10.0)
[2021-12-16 05:35] LABS: Charge for UA Resulting for Rev
[2021-12-16] MEDS: metoclopramide 5 mg/mL SDV 2 mL 10 MG IVP (05:40)
[2021-12-16] MEDS: ondansetron 2 mg/ML SDV 2 mL 4 MG IVP (05:44)
[2021-12-16 05:49] LABS: Alanine Aminotransferase 32 U/L (0-33); Alkaline Phosphatase 200 IU/L (35-105); Anion Gap 14.7 (5-19); Aspartate Amino Transferase 22 U/L (0-32); Blood Urea Nitrogen 4 mg/dL (6-20); Calcium 8.2 mg/dL (8.5-10.5); Carbon Dioxide 20 mmol/L (22-29); Chloride 104 mmol/L (98-107); Globulin 2.9 g/dL (1.3-4.6); Glomerular Filtration Rate 146.9 mL/min (90-130); Glucose 135 mg/dL (65-115); Osmolality Calculated 279 mOsm/kg (285-295); Potassium 3.7 mmol/L (3.5-5.1); Sodium 135 mmol/L (136-145); Total Bilirubin 0.3 mg/dL (0.15-1.2); Total Protein 5.9 g/dL (6.6-8.7); Uric Acid 3.9 mg/dL (2.4-5.7)
[2021-12-16 06:06] LABS: Add Urine Microscopic? YES; Bilirubin Urine Neg (Negative); Blood Urine Neg (Negative); Glucose Urine UA 4+ (Normal); Ketones Urine 1+ (Negative); Leukocyte Esterase Urine Negative (Negative); Nitrate Urine Negative (Negative); Protein Urine Trace (Negative); Urine Appearance Clear (CLEAR); Urine Color Yellow (Yellow); Urobilinogen Urine 1 mg/dL (Negative); pH Urine 6 (5-7)
[2021-12-16 06:19] LABS: Urine Creatinine 211 mg/dL (28-217)
[2021-12-16 06:27] LABS: Urine Protein Random 64 mg/dL
[2021-12-16] MEDS: betamethasone susp 6 mg/mL 5 mL 12 MG IM (07:19)
--- NOTE | 2021-12-16 08:04 | P.HP_ITS ---
Providers/Chief Complaint Admitting Physician: Nayana Paul MD Primary Care Provider: Sis Da Silva DO Chief Complaint: Contractions and Vomiting since 1900 History of Present Illness Rebecca Aguilar is a 26 year old female at 35 weeks, 4 days gestation who presents for unrelenting nausea and vomiting. Her is complicated by cholestasis of . She reports that she has been unable to keep anything down and has had multiple emesis today. She gets her care in [place], but felt like she couldn't make it down there, so came here. Her blood pressure was slightly elevated on admission and pre eclamptic labs had a few mild elevations, that can also be seen with dehydration. She will be admitted for IV fluids, anti emetics and blood pressure monitoring. Labs will be repeated in the AM. Review of Systems General: Reports: 10 or more systems reviewed and unremarkable except in HPI and below Medications/Allergies Home Medications Medication Instructions Recorded Confirmed Last Taken Type albuterol sulfate 90 mcg/actuation 2 puff INHALATION Q6H PRN #8.5 g 08/07/20 12/15/21 Unknown Rx aerosol inhaler (Ventolin HFA) ondansetron HCl 4 mg tablet 4 mg PO TID PRN 10/21/21 12/15/21 12/15/21 21:00 History omeprazole magnesium 20 mg 20 mg PO PRN PRN 12/15/21 12/15/21 Unknown History tablet,delayed release (Prilosec OTC) ursodiol 300 mg capsule 300 mg PO BID 12/15/21 12/15/21 12/15/21 History Allergies Allergy/AdvReac Type Severity Reaction Status Date / Time latex Allergy Unknown Rash Verified 10/21/21 04:48 amitriptyline Allergy ADR-Agitate Verified 10/21/21 04:48 d amoxicillin Allergy ALGY-Hives Verified 10/21/21 04:48 medroxyprogesterone Allergy hives Verified 10/21/21 04:48 [From Provera] meperidine [From Demerol] Allergy Unknown I Verified 10/21/21 04:48 was a baby - morphine Allergy ADR/ALGY-Flushing/ blacked Verified 10/21/21 04:48 out prochlorperazine Allergy ADR-Irritab Verified 10/21/21 04:48 [From Compazine] le promethazine [From Phenergan] Allergy Twitching Verified 10/21/21 04:48 rizatriptan [From Maxalt] Allergy Unknown Verified 12/15/21 22:58 Sulfa (Sulfonamide Allergy Chest Verified 10/21/21 04:48 Antibiotics) heaviness, hard to breathe sumatriptan [From Imitrex] Allergy Unknown Verified 12/15/21 22:58 topiramate [From Topamax] Allergy Unknown Verified 12/15/21 22:58 PFSH Acute PFSH: Medical History Incomplete bladder emptying Interstitial cystitis Migraine headache with aura Neurogenic bladder Intermittent self cathing--->managed by Ahn-- Urology No pertinent past medical history neghx: htn,dm,thyroid,dvt/pe PCP: None PCOS (polycystic ovarian syndrome) diagnosed at 12 y/o Recurrent UTI Seizures Patient still being worked up; was told she might have MS, but another neurologist disagreed. Stammering/stuttering Surgical History History of appendectomy History of dental surgery Hx of cholecystectomy (~04/2020) S/P colon resection (~2011) Ileocecal resection secondary to the presence of a Meckel's diverticulum. Performed at [facility] with a [facility] provider. Family History Father Diabetes Heart disease Hypertension Mother Thyroid disease Family/Other No problems noted. Grandfather Diabetes Paternal Hypertension Paternal Grandmother Hypertension Paternal Thyroid disease Maternal Denies family history of Colon cancer Ovarian cancer Hypercholesteremia Breast cancer Uterine cancer Stroke Female Reproductive History: Date of last menstrual period: 03/23/22 : 8 Vitals/I&O/Wt Last Vital Signs Temp 97.2 F L 12/15/21 22:50 Pulse 99 12/16/21 06:55 Resp 16 12/16/21 07:39 BP 115/80 12/16/21 06:55 Pulse Ox 98 12/16/21 01:44 12/15/21 12/16/21 12/16/21 22:59 06:59 14:59 Intake Total 913.333 / 913.333 Balance 913.333 / 913.333 Weight last 48 hrs Weight 199 lb Physical Exam Narrative: The patient appears ill. Resp: COMMON NORMALS: normal respiratory effort EFFORT & INSPECTION: Yes able to speak in complete sentences GI: COMMON NORMALS: Soft to palpation and non-tender Extremity: COMMON NORMALS: no calf tenderness Data : 12/16/21 05:13 12/16/21 05:13 A&P Assessment and plan (1) Gastroenteritis: IV fluids and anti emetics repeat labs in AM admit for observation first dose of betamethasone NST every shift Status: Acute Attestations Medical Necessity Statement*: she will likely only be here overnight Coding Level of Care Code Acute Communications Programmer for [facility] Alondra Diagnoses Gastroenteritis K52.9
--- NOTE | 2021-12-16 08:05 | PM.DCS ---
Discharge Providers Date of Admission: 12/16/21 00:17 Date of Discharge: December 16, 2021 Attending Provider at Admission: Nayana Paul MD Attending Provider at Discharge: Nayana Paul MD Primary Care Provider: Sis Da Silva DO Reason for Visit Reason for Visit: Contractions and Vomiting since 1899 Hospital Course Hospital Course The patient was admitted for nausea and vomiting with slightly abnormal lab values and mild elevation of blood pressure. She was hydrated overnight. She received reglan and zofran. She also received her first dose of betamethasone. She had improved greatly overnight and in the AM was ready for discahrge. Physical Exam Narrative: The patient is feeling much better this morning. She is requesting discharge. Discharge Data Studies Completed and Pending Laboratory Results WBC 11.3 10^3/uL (4.0-10.0) H 12/16/21 05:13 RBC 3.66 10^6/uL (4.1-5.3) L 12/16/21 05:13 Hgb 10.6 g/dL (11.5-15.3) L 12/16/21 05:13 Hct 30.6 % (37.0-47.0) L 12/16/21 05:13 MCV 83.6 fl (81-99) 12/16/21 05:13 MCH 29.0 pg (28.0-34.0) 12/16/21 05:13 MCHC 34.6 g/dL (30.0-36.0) 12/16/21 05:13 RDW 11.4 % (12.1-15.1) L 12/16/21 05:13 Plt Count 383 10^3/cmm (130-400) 12/16/21 05:13 MPV 10.0 fL (7.4-10.4) 12/16/21 05:13 Neut % (Auto) 76.3 % 12/16/21 05:13 Lymph % (Auto) 18.2 % 12/16/21 05:13 [place] % (Auto) 4.8 % 12/16/21 05:13 Eos % (Auto) 0.1 % 12/16/21 05:13 Baso % (Auto) 0.1 % 12/16/21 05:13 Neut # (Auto) 8.65 10^3/uL (1.8-7.7) H 12/16/21 05:13 Lymph # (Auto) 2.1 10^3/uL (0.8-4.8) 12/16/21 05:13 [place] # (Auto) 0.5 10^3/uL (0.2-0.9) 12/16/21 05:13 Eos # (Auto) 0.0 10^3/uL (0.0-0.8) 12/16/21 05:13 Baso # (Auto) 0.0 10^3/uL (0.0-0.1) 12/16/21 05:13 Nucleated RBC % (auto) 0 % 12/16/21 05:13 Nucleated RBCs # 0.0 /100WBC 12/16/21 05:13 Sodium 135 mmol/L (136-145) L 12/16/21 05:13 Potassium 3.7 mmol/L (3.5-5.1) 12/16/21 05:13 Chloride 104 mmol/L (98-107) 12/16/21 05:13 Carbon Dioxide 20 mmol/L (22-29) L 12/16/21 05:13 Anion Gap 14.7 (5-19) 12/16/21 05:13 BUN 4 mg/dL (6-20) L 12/16/21 05:13 Creatinine 0.5 mg/dL (0.5-0.9) 12/16/21 05:13 GFR Calculation 146.9 mL/min (90-130) H 12/16/21 05:13 Glucose 135 mg/dL (65-115) H 12/16/21 05:13 Calculated Osmolality 279 mOsm/kg (285-295) L 12/16/21 05:13 Uric Acid 3.9 mg/dL (2.4-5.7) 12/16/21 05:13 Calcium 8.2 mg/dL (8.5-10.5) L 12/16/21 05:13 Total Bilirubin 0.3 mg/dL (0.15-1.2) 12/16/21 05:13 AST 22 U/L (0-32) 12/16/21 05:13 ALT 32 U/L (0-33) 12/16/21 05:13 Alkaline Phosphatase 200 IU/L (35-105) H 12/16/21 05:13 Total Protein 5.9 g/dL (6.6-8.7) L D 12/16/21 05:13 Albumin 3.0 g/dL (3.5-5.2) L 12/16/21 05:13 Globulin 2.9 g/dL (1.3-4.6) 12/16/21 05:13 Urine Color Yellow (Yellow) 12/16/21 05:19 Urine Appearance Clear (CLEAR) 12/16/21 05:19 Urine pH 6 (5-7) 12/16/21 05:19 Ur Specific [place] 1.020 (1.005-1.030) 12/16/21 05:19 Urine Protein Trace (Negative) 12/16/21 05:19 Urine Glucose (UA) 4+ (Normal) H 12/16/21 05:19 Urine Ketones 1+ (Negative) H 12/16/21 05:19 Urine Blood Neg (Negative) 12/16/21 05:19 Urine Nitrate Negative (Negative) 12/16/21 05:19 Urine Bilirubin Neg (Negative) 12/16/21 05:19 Urine Urobilinogen 1 mg/dL (Negative) H 12/16/21 05:19 Ur Leukocyte Esterase Negative (Negative) 12/16/21 05:19 Urine RBC 0-4 /hpf (0-2) H 12/15/21 22:44 Urine WBC 10-15 /hpf (0-5) H 12/15/21 22:44 Ur Squamous Epith Cells 40-55 /hpf (0-5) H 12/15/21 22:44 Amorphous Sediment Not Reportable 12/15/21 22:44 Urine Bacteria Trace /hpf (NONE) 12/15/21 22:44 Hyaline Casts 0-4 /lpf H 12/15/21 22:44 Coarse Granular Casts 0-4 /lpf H 12/15/21 22:44 Urine Mucus 4+ /hpf 12/15/21 22:44 U Random Total Protein 64 mg/dL 12/16/21 05:19 Urine Creatinine 211 mg/dL (28-217) 12/16/21 05:19 Protein/Creatinin Ratio 0.30 mg/mg CR 12/16/21 05:19 Vitals Last Vital Signs Temp 97.2 F L 12/15/21 22:50 Pulse 99 12/16/21 06:55 Resp 16 12/16/21 07:39 BP 115/80 12/16/21 06:55 Pulse Ox 98 12/16/21 01:44 Discharge Plan Discharge Patient Disposition: Home Condition: Stable Prescriptions: Continued albuterol sulfate [Ventolin HFA] 90 mcg/actuation HFA aerosol inhaler 2 puff inhalation Q6H PRN (Reason: shortness of breath or wheezing) Qty: 8.5 0RF ondansetron HCl 4 mg tablet 4 mg PO TID PRN (Reason: Nausea) 0RF Prilosec OTC 20 mg Tablet,Delayed Release (Dr/Ec) 20 mg PO PRN PRN (Reason: Heartburn) 0RF ursodiol 300 mg Capsule 300 mg PO BID 0RF Discharge Orders: Discharge Order (Routine); Ordered 12/16/21 Ordered By: Nayana Paul Referrals: Nayana Paul MD [Physician] - 12/17/21 8:00 am (Come to labor and delivery for second betamethasone injection) Patient Instructions: Betamethasone (By injection), Preeclampsia During (GEN), Movement (DC), Kick Counts in (DC), Opioid Safety, OB Undelivered Discharge Activity Restrictions/Additional Instructions: Follow up with primary care provider as previously scheduled. Discharge Attestations Time Spent in Discharge Care*: less than 30 min Quality Metrics Clinical Quality Measures [ No reported AMI, CVA or VTE this stay] Coding Level of Care Code Acute Chg FW DC note
== END 2021-12-16 08:40 | disposition home or self-care (01) ==
LOC: OPOB 13:52
PROVIDERS: PCP Internal Medicine; Visit Provider Obstetrics & Gynecology
DX: O21.2 Late vomiting of pregnancy (principal); Z3A.35 35 weeks gestation of pregnancy; K52.9 Noninfective gastroenteritis and colitis, unspecified
CPT/HCPCS: 36415; 59025; 80053; 81001; 81003; 82570; 84156; 84550; 85025; 99211; G0378; J0702; J2405; J2765

== ENCOUNTER 2021-12-17 09:40 | Outpatient (CLI) | payer MEDICAID, SELFPAY ==
[2021-12-17] MEDS: betamethasone susp 6 mg/mL 5 mL 12 MG IM (09:56)
--- NOTE | 2021-12-17 10:53 | PC.NURSE ---
pt here for betamethesone injection only
== END 2021-12-17 10:00 | disposition home or self-care (01) ==
LOC: OPOB 09:42
PROVIDERS: PCP Internal Medicine; Visit Provider Obstetrics & Gynecology
DX: O26.899 Other specified pregnancy related conditions, unspecified trimester (principal); Z3A.00 Weeks of gestation of pregnancy not specified
CPT/HCPCS: 96372; J0702

== ENCOUNTER 2022-10-29 10:45 | Emergency (ER) | payer SELFPAY ==
[2022-10-29 10:57] VITALS: BP 133/87; PULSE 84; RESP 14; TEMP 36.9; O2SAT 98; BMI 40.7
[2022-10-29 12:19] LABS: Add Urine Culture? No; Add Urine Microscopic? YES; Bacteria Urine TRACE /hpf; Bilirubin Urine 1+ (Negative); Blood Urine 2+ (Negative); Glucose Urine UA Norm (Normal); Ketones Urine Negative (Negative); Leukocyte Esterase Urine Negative (Negative); Mucus Urine 1+ /hpf; Nitrate Urine Negative (Negative); Protein Urine Neg (Negative); Urine Appearance Clear (CLEAR); Urine Color Yellow (Yellow); Urobilinogen Urine Norm (Negative); WBC Urine RARE /hpf (0-5); pH Urine 5 (5-7)
--- NOTE | 2022-10-29 12:42 | USR_ITS ---
PROCEDURE INFORMATION: Exam: US Duplex Artery or Vein of the Abdominal and/or Reproductive Organs, Limited Ovaries Exam date and time: 10/29/2022 1:12 PM Age: 27 years old Clinical indication: Pain; Dysmenorrhea; Additional info: Low abd pain and abnormal vaginal bleeding TECHNIQUE: Imaging protocol: Real-time duplex ultrasound scan of the arterial or venous flow with last scale, color Doppler flow and spectral waveform analysis with image documentation. Limited duplex exam focused on the ovaries. Duplex exam was performed to evaluate for torsion and other vascular conditions. COMPARISON: US pelv w/transvag [id number] 04/07/2020 2:49 PM FINDINGS: Right ovary/adnexa: Normal duplex of the ovary. Normal Doppler waveforms and color flow. No evidence of ovarian torsion. Left ovary/adnexa: Normal duplex of the ovary. Normal Doppler waveforms and color flow. No evidence of ovarian torsion. PROCEDURE INFORMATION: Exam: US Pelvis, Transvaginal Exam date and time: 10/29/2022 1:12 PM Age: 27 years old Clinical indication: Pain; Dysmenorrhea; Additional info: Low abd pain and abnormal vaginal bleeding LABS AND CLINICAL REPORTS: Last menstrual period start date: Unknown TECHNIQUE: Imaging protocol: Real-time transvaginal pelvic ultrasound with image documentation. Transvaginal imaging was used for better evaluation of the endometrium, adnexa, and/or cervix. COMPARISON: US pelv w/transvag [id number] 04/07/2020 2:49 PM FINDINGS: Uterus: Endometrial stripe thickness is 5-7 mm. There is trace fluid in the fundal endometrial canal. The uterus is anteverted. Contours are normal. The uterus measures 6.3 x 4.3 x 4.2 cm. The transitional myometrium is ill-defined. Right ovary/adnexa: The right ovary is morphologically normal. There is normal blood flow in the right ovary. The right ovary measures 3.0 x 2.3 x 2.1 cm. Left ovary/adnexa: The left ovary is morphologically normal. There is normal blood flow in the left ovary. The left ovary measures 3.0 x 2.5 x 2.3 cm. Urinary bladder: The urinary bladder is decompressed. Contours are normal. Intraperitoneal space: No pelvic free fluid. US/US pelv w/transvag [id number] IMPRESSION: Normal duplex of the ovaries. No evidence of ovarian torsion. IMPRESSION: No pathologic findings.
--- NOTE | 2022-10-29 12:51 | ED_ITS ---
HPI - Female Genitourinary General: Chief complaint: Vaginal Bleeding Stated complaint: severe uterine pain Time Seen by Provider: 10/29/22 11:12 History of Present Illness: Patient is a 27-year-old G8, history of PCOS. Patient presents with abnormal uterine bleeding and pain. She reports she started her menstrual cycle as scheduled but this has increased in both bleeding and intensity. It is now painful to insert a tampon and she reports it is being deflected towards her left lower quadrant. 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 She reports its sharp in nature Last sexual activity 1 week ago Patient does not have a appendix but does have a history of ovarian cysts and ruptures. Associated symptoms: Deny abdominal pain, headache(s) or nausea Review of Systems General: Reports: 10 or more systems reviewed and unremarkable except in HPI and below Const: Denies: fever(s), chills, change in appetite, change in weight, fatigue or malaise Eyes: Denies: change in vision, eye discomfort, eye discharge or eye redness ENMT: Denies: throat pain, enlarged tonsils, odynophagia, hoarseness, ear or mastoid pain, ear discharge, change in hearing, tinnitus, nasal discharge, nasal congestion, post nasal drip or sinus pain Card: Denies: chest pain, palpitations, irregular heart rhythm, edema, dyspnea on exertion, orthopnea or leg pain with exertion Resp: Denies: dyspnea, productive cough, non-productive cough, wheezing, stridor or chest congestion GI: Denies: abdominal pain, nausea, vomiting, dysphagia, diarrhea, constipation, bloating, GI cramping or hematochezia : Reports: hematuria, dysmenorrhea, irregular period, change in menstrual flow and pelvic pain; Denies: flank pain, difficulty voiding, dysuria, urinary frequency, urinary urgency, urinary hesitancy or oliguria Musc: Denies: neck pain, back pain, extremity pain, joint pain, joint swelling, joint redness, joint warmth or muscle weakness Skin/Breast: Denies: rash, pruritus, erythema, photosensitivity or new lesions Neuro: Denies: headache(s), numbness in extremities, weakness in extremities, sensory changes, lack of coordination, difficulty walking, frequent falls, dizziness, confusion, Slurred speech present, difficulty communicating thoughts, seizure-like activity or involuntary movements Endo: Denies: polyuria, polydipsia or tired all the time Jimmy/Lymph: Denies: easy bruising or easy bleeding PFS ED PFSH: Medical History Incomplete bladder emptying Interstitial cystitis Migraine headache with aura Neurogenic bladder Intermittent self cathing--->managed by A[facility]-- Urology No pertinent past medical history neghx: htn,dm,thyroid,dvt/pe PCP: None PCOS (polycystic ovarian syndrome) diagnosed at 12 y/o Recurrent UTI Seizures Patient still being worked up; was told she might have MS, but another neurologist disagreed. Stammering/stuttering Surgical History History of appendectomy History of dental surgery Hx of cholecystectomy (~04/2020) S/P colon resection (~2011) Ileocecal resection secondary to the presence of a Meckel's diverticulum. Per formed at [facility] with a [facility] provider. Family History Father Diabetes Heart disease Hypertension Mother Thyroid disease Family/Other No problems noted. Grandfather Diabetes Paternal Hypertension Paternal Grandmother Hypertension Paternal Thyroid disease Maternal Denies family history of Colon cancer Ovarian cancer Hypercholesteremia Breast cancer Uterine cancer Stroke Social History (Updated 04/12/22 @ 14:09 by Noni Hernández LPN) Smoking and tobacco status: current every day smoker cigarettes Packs smoked per day: 0.75 Years cigarettes smoked: 5 Alcohol intake: never Substance/Drug Use: never Adopted: No Caregiver/support person: No Lives independently: Yes Household members: spouse and children Housing: House Marital status: Number of children: 2 Highest education level completed: Associate Degree: Occupational, Technical, Vocational Program service: No Current occupational status: employed 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 [employer] Current occupational exposures/hazards: No Pets and animals: Yes Sexually active: Yes Do you think of yourself as: Straight/Heterosexual Current gender identity: Female Special zaria needs: No Agree to transfusion: Yes Female Reproductive History: Spontaneous abortions: No Physical Exam Const: COMMON NORMALS: no acute distress, patient oriented x3 and alert GENERAL APPEARANCE: cooperative ORIENTATION/CONSCIOUSNESS: Yes awake, Yes oriented to person, Yes oriented to place and Yes oriented to time HENMT: COMMON NORMALS: normocephalic and atraumatic HEAD & SCALP: normocephalic and atraumatic FACE & SINUS: normal facial exam MOUTH: Normal oral and palatal mucosa present THROAT: posterior oropharynx normal Eye: COMMON NORMALS: Equal, round and reactive pupils present, EOMs intact bilaterally, conjunctivae normal and no scleral icterus GENERAL EYE: appearance normal, both eyes and all related structures ALIGNMENT: Yes alignment normal PERIORBITAL: periorbital findings normal CONJUNCTIVA: Yes conjunctivae normal PUPIL: Yes Equal, round and reactive pupils present Neck/C-Spine: COMMON NORMALS: full ROM GENERAL: Yes normal visual inspection Lymph: LYMPHATIC: no lymphadenopathy noted Chest: COMMONS NORMALS: normal inspection of the chest Breast/axilla inspection: Yes no chest deformity, asymmetry, normal contours, no nodules, masses, tenderness Resp: COMMON NORMALS: normal respiratory effort, No retractions, No use of accessory muscles and clear to auscultation bilaterally EFFORT & INSPECTION: Yes able to speak in complete sentences and Yes symmetric chest movement AUSCULTATION: clear to auscultation bilaterally Cardio: COMMON NORMALS: regular rate, regular rhythm and Peripheral pulses 2+ throughout RATE: regular rate RHYTHM: regular rhythm PERIPHERAL PULSES: Peripheral pulses 2+ throughout GI: COMMON NORMALS: Normal to inspection, nondistended, normoactive bowel sounds present, Soft to palpation, non-tender and No hepatosplenomegaly present INSPECTION: Yes normal to inspection AUSCULTATION: Yes normoactive bowel sounds PALPATION: Yes Soft to palpation and Yes No hepatosplenomegaly present RECTAL EXAM: deferred Extremity: COMMON NORMALS: normal to inspection GENERAL: Yes normal exam except as noted Neuro: COMMON NORMALS: patient oriented x3 SENSORIUM/ORIENTATION: Yes alert, Yes oriented to person, Yes oriented to place and Yes oriented to time CRANIAL NERVES: Yes CN normal except as noted Psych: COMMON NORMALS: mental status grossly normal, Normal thought process present, cooperative, activity/motor behavior normal, denies homicidal ideation and denies suicidal ideation THOUGHT PROCESS: Normal thought process present Skin: COMMON NORMALS: no rashes or lesions noted, no wounds and turgor normal GENERAL SKIN EXAM: no rashes or lesions noted and turgor normal Course Vital Signs: Vital signs: Vital Signs Temperature 98.4 F 10/29/22 10:57 Pulse Rate 84 10/29/22 10:57 Respiratory Rate 14 10/29/22 10:57 Blood Pressure 133/87 10/29/22 10:57 Pulse Oximetry 98 10/29/22 10:57 Oxygen Delivery Me thod Room Air 10/29/22 10:57 MDM - Female Medical Decision Making Patient was evaluated in the emergency department for vaginal bleeding and pain. Patient describes a sudden change in menstrual cycles to include increased pain, worse on the right and increased bleeding. Patient is a history of PCOS and her reports she has had very irregular menstrual cycles but recently her menstrual cycles have been more normal. Patient underwent laboratory studies as well as a ultrasound. Normal duplex of the ovaries and no evidence of ovarian torsion present. Patient and I had a discussion regarding her complaints and diagnostic findings. At this time I believe she has dysfunctional uterine bleeding but nothing that is surgical. She needs to follow-up with her [employer]WORK [employer] Patient may return to the emergency department for new concerning or worsening symptoms. All questions answered Lab Data 10/29/22 12:45 10/29/22 12:45 Radiology Impressions Pelvic/Transvag US 10/29/22 12:42 IMPRESSION: Normal duplex of the ovaries. No evidence of ovarian torsion. IMPRESSION: No pathologic findings. ADDENDUM: 10/29/22 [id number] Correction: The body of the report under the uterus heading contains an error regarding the transitional myometrium. The final sentence should read as follows: The transitional myometrium is well defined. Laboratory Results WBC 8.7 10^3/uL (4.0-10.0) 10/29/22 12:45 RBC 5.00 10^6/uL (4.1-5.3) 10/29/22 12:45 Hgb 14.2 g/dL (11.5-15.3) 10/29/22 12:45 Hct 43.6 % (37.0-47.0) 10/29/22 12:45 MCV 87.2 fl (81-99) 10/29/22 12:45 MCH 28.4 pg (28.0-34.0) 10/29/22 12:45 MCHC 32.6 g/dL (30.0-36.0) 10/29/22 12:45 RDW 12.5 % (12.1-15.1) 10/29/22 12:45 Plt Count 340 10^3/cmm (130-400) 10/29/22 12:45 MPV 9.6 fL (7.4-10.4) 10/29/22 12:45 Neut % (Auto) 50.9 % 10/29/22 12:45 Lymph % (Auto) 39.2 % 10/29/22 12:45 Crowley % (Auto) 6.3 % 10/29/22 12:45 Eos % (Auto) 2.9 % 10/29/22 12:45 Baso % (Auto) 0.5 % 10/29/22 12:45 Neut # (Auto) 4.42 10^3/uL (1.8-7.7) 10/29/22 12:45 Lymph # (Auto) 3.4 10^3/uL (0.8-4.8) 10/29/22 12:45 Crowley # (Auto) 0.6 10^3/uL (0.2-0.9) 10/29/22 12:45 Eos # (Auto) 0.3 10^3/uL (0.0-0.8) 10/29/22 12:45 Baso # (Auto) 0.0 10^3/uL (0.0-0.1) 10/29/22 12:45 Nucleated RBC % (auto) 0 % 10/29/22 12:45 Nucleated RBCs # 0.0 /100WBC 10/29/22 12:45 Sodium 136 mmol/L (136-145) 10/29/22 12:45 Potassium 3.7 mmol/L (3.5-5.1) 10/29/22 12:45 Chloride 101 mmol/L (98-107) 10/29/22 12:45 Carbon Dioxide 27 mmol/L (22-29) 10/29/22 12:45 Anion Gap 11.7 (5-19) 10/29/22 12:45 BUN 9 mg/dL (6-20) 10/29/22 12:45 Creatinine 0.7 mg/dL (0.5-0.9) 10/29/22 12:45 GFR Calculation 98.9 mL/min (90-130) 10/29/22 12:45 Glucose 89 mg/dL (65-115) 10/29/22 12:45 Calculated Osmolality 280 mOsm/kg (285-295) L 10/29/22 12:45 Calcium 8.7 mg/dL (8.5-10.5) 10/29/22 12:45 Total Bilirubin 0.4 mg/dL (0.15-1.2) 10/29/22 12:45 AST 20 U/L (0-32) 10/29/22 12:45 ALT 24 U/L (0-33) 10/29/22 12:45 Alkaline Phosphatase 88 U/L (35-105) 10/29/22 12:45 Total Protein 7.1 g/dL (6.6-8.7) 10/29/22 12:45 Albumin 4.3 g/dL (3.5-5.2) 10/29/22 12:45 Globulin 2.8 g/dL (1.3-4.6) 10/29/22 12:45 Lipase 12 U/L (13-60) L 10/29/22 12:45 HCG, Qual Negative (Negative) 10/29/22 12:45 Urine Color Yellow (Yellow) 10/29/22 11:01 Urine Appearance Clear (CLEAR) 10/29/22 11:01 Urine pH 5 (5-7) 10/29/22 11:01 Ur Specific [place] 1.020 (1.005-1.030) 10/29/22 11:01 Urine Protein Neg (Negative) 10/29/22 11:01 Urine Glucose (UA) Norm (Normal) 10/29/22 11:01 Urine Ketones Negative (Negative) 10/29/22 11:01 Urine Blood 2+ (Negative) H 10/29/22 11:01 Urine Nitrate Negative (Negative) 10/29/22 11:01 Urine Bilirubin 1+ (Negative) H 10/29/22 11:01 Urine Urobilinogen Norm mg/dL (Negative) 10/29/22 11:01 Ur Leukocyte Esterase Negative (Negative) 10/29/22 11:01 Urine RBC 5-10 /hpf (0-2) H 10/29/22 11:01 Urine WBC Rare /hpf (0-5) 10/29/22 11:01 Ur Squamous Epith Cells 5-10 /hpf (0-5) H 10/29/22 11:01 Amorphous Sediment Not Reportable 10/29/22 11:01 Urine Bacteria Trace /hpf (NONE) 10/29/22 11:01 Urine Mucus 1+ /hpf 10/29/22 11:01 Discharge Plan Discharge Patient Disposition: Home Clinical Impression: Menometrorrhagia, Vaginal bleeding, Dysfunctional uterine bleeding Condition: Stable Prescriptions: No Action No Known Home Medications Discharge Orders: Discharge ED (Routine); Ordered 10/29/22 Ordered By: Agnes Howard Discharge Diet: Advance as tolerated Discharge Activity: Resume usual activity Patient Instructions: Abnormal (Dysfunctional) Uterine Bleeding (ED), Pain Management Coding Level of Care Code ED Line Erector for Killian Cantu
[2022-10-29 13:04] LABS: Basophils % 0.5 %; Eosinophils # 0.3 10^3/uL (0.0-0.8); Eosinophils % 2.9 %; Hematocrit 43.6 % (37.0-47.0); Hemoglobin 14.2 g/dL (11.5-15.3); Lymphocytes # 3.4 10^3/uL (0.8-4.8); Lymphocytes % 39.2 %; Mean Corpuscular HGB Conc 32.6 g/dL (30.0-36.0); Mean Corpuscular Hemoglobin 28.4 pg (28.0-34.0); Mean Corpuscular Volume 87.2 fl (81-99); Mean Platelet Volume 9.6 fL (7.4-10.4); Monocytes # 0.6 10^3/uL (0.2-0.9); Monocytes % 6.3 %; Neutrophils # 4.42 10^3/uL (1.8-7.7); Neutrophils % 50.9 %; Nucleated Red Blood Cells % 0 %; Platelet Count 340 10^3/cmm (130-400); Red Cell Distribution Width 12.5 % (12.1-15.1); White Blood Count 8.7 10^3/uL (4.0-10.0)
[2022-10-29 13:20] LABS: HCG, Serum Qual Negative (Negative)
[2022-10-29 13:24] LABS: Alanine Aminotransferase 24 U/L (0-33); Albumin Level 4.3 g/dL (3.5-5.2); Alkaline Phosphatase 88 U/L (35-105); Anion Gap 11.7 (5-19); Aspartate Amino Transferase 20 U/L (0-32); Blood Urea Nitrogen 9 mg/dL (6-20); Calcium 8.7 mg/dL (8.5-10.5); Carbon Dioxide 27 mmol/L (22-29); Chloride 101 mmol/L (98-107); Globulin 2.8 g/dL (1.3-4.6); Glomerular Filtration Rate 98.9 mL/min (90-130); Glucose 89 mg/dL (65-115); Lipase 12 U/L (13-60); Osmolality Calculated 280 mOsm/kg (285-295); Potassium 3.7 mmol/L (3.5-5.1); Sodium 136 mmol/L (136-145); Total Bilirubin 0.4 mg/dL (0.15-1.2); Total Protein 7.1 g/dL (6.6-8.7)
[2022-10-29] MEDS: ketorolac 10 mg Tablet PO (15:32)
[2022-10-29 15:35] VITALS: BP 132/95; PULSE 79; RESP 16; O2SAT 98
--- NOTE | 2022-11-03 12:45 | DCPLANNER ---
manager resort called patient due to no primary care physician - patient declines at this time.
== END 2022-10-29 15:39 | disposition home or self-care (01) ==
PROVIDERS: Emergency Medicine; Emergency Provider Nurse Practitioner
DX: N92.1 Excessive and frequent menstruation with irregular cycle (principal); N93.8 Other specified abnormal uterine and vaginal bleeding; F17.210 Nicotine dependence, cigarettes, uncomplicated
CPT/HCPCS: 36415; 76830; 76856; 80053; 81001; 83690; 84703; 85025; 99284